=== PATIENT | female | born 1945 | race African-American/Black ===

== ENCOUNTER 2023-12-21 04:55 | Inpatient (IN) | payer OTHER, SELFPAY ==
[2023-12-01 12:17] VITALS: BMI 23.4
[2023-12-01 13:00] LABS: % Basophils 0.9 % (0-2); % Immature Granulocytes 0.3 % (0-0.5); % Lymphocytes 29.3 % (20.5-51.1); % Monocytes 12.5 % (1.7-9.3); Absolute Eosinophils 0.1 10^3/uL (0-0.7); Absolute Monocytes 0.4 10^3/uL (0.1-0.6); Absolute Neutrophils 1.9 10^3/uL (1.4-6.5); Hematocrit 35.7 % (37.0-47.0); Mean Corp Hgb Conc. 33.6 g/dL (33.0-37.0); Mean Corpuscular Hgb 29.9 pg (27.0-31.0); Mean Platelet Volume 9.9 fL (7.4-10.4); Nucleated Red Blood Cells % 0 %; Platelet Count 160 10^3/uL (130-400); Red Blood Cell Count 4.01 10^6/uL (4.20-5.40); Red Cell Dist. Width 14.3 % (11.5-14.5); White Blood Cell Count 3.5 10^3/uL (4.8-10.8)
[2023-12-01 13:05] LABS: Urine Albumin Negative (Neg - Trace); Urine Bilirubin Negative (Negative); Urine Character Clear (Clear); Urine Color Yellow; Urine Glucose Negative (Negative); Urine Ketone Negative (Negative); Urine Leukocyte Negative (Negative); Urine Nitrite Negative (Negative); Urine Occult Blood Trace (Negative); Urine Specific Gravity 1.005 (<1.030); Urine Urobilinogen Negative (Neg - 1+)
[2023-12-01 13:10] LABS: ALT (SGPT) 26 U/L (0-35); AST (SGOT) 37 U/L (14-36); Albumin 4.3 g/dl (3.5-5.0); Alkaline Phosphatase 84 U/L (38-126); Blood Urea Nitrogen 19 mg/dl (7-17); Calcium 9.9 mg/dl (8.4-10.2); Carbon Dioxide 29 mmol/L (22-30); Chloride 101 mmol/L (98-107); Direct Bilirubin 0.3 mg/dl (0.0-0.4); Estimated Creatinine Clearance 63 ml/min; Glucose 88 mg/dl (70-99); Potassium 4.1 mmol/L (3.5-5.1); Sodium 139 mmol/L (135-145); Total Bilirubin 0.9 mg/dl (0.2-1.3); Total Protein 7.4 g/dl (6.3-8.2); eGFR > 60.00
[2023-12-01 13:16] LABS: Urine Squamous Cell 0-2 /LPF (Few); Urine White Cell 0-2 /HPF (0-5)
[2023-12-01 13:18] LABS: PT 14.1 Sec (11.4-14.6)
[2023-12-01 13:19] LABS: APTT 36.6 Sec (23.4-35.0)
--- NOTE | 2023-12-01 13:45 | CM ---
Chart reviewed. Met with the patient in PAT. Patient is independent of ADLS, lives with her adult granddaughter, 1 STH, 0 PRAVEEN, 0 DME. Reviewed preoperative and postoperative instruction and restriction, along with showering guidelines. Gave
patient 2 soaps. Patient is agreeable to a home visit by CT Transitional RN. Plan is for patient to return home with CT Transitional RN.
[2023-12-01 14:15] LABS: Glycohemoglobin (HgbA1c) 6.1 % (4.0-5.6)
--- NOTE | 2023-12-20 22:10 | W.PN.CT ---
Assessment / Plan
-
Assessment:
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
-Mild TR
-LVEF 60%
-Hx sinus bradycardia with 1sth deg AVB
-HTN
-HLD
-Prediabetes (hgb A1C 6.1)
-Severe PAD with claudication s/p RLE stent
-Recent Leukopenia, WBC 3.5 (12/01/23)
-Hx Breast Ca S/p Left mastectomy (Chemo and XRT, 2020)
-S/P hysterectomy
-Acute postop blood loss/anemia (stable without blood transfusion)
-Acute postop atelectasis
-Acute postop hypovolemia with subsequent hypervolemia
Plan:
-No major issues overnight. Hemodynamically and neurologically intact
-Pt successfully extubated in the OR
-Weaned off Levophed gtt overnight, remains on insulin gtt per protocol
-Noted to be bradycardic (sinus) @ 53 bpm overnight. Held Amiodarone last night and placed BB on hold for this AM
-Cont. current meds (ASA, Crestor, Protonix, Iron, Vit C)
-Last CI , U/O since OR 975 mL
-Monitor chest tube output: Med + R pleural
-D/C'd swan and a-line @ 0430
-D/C'd jay @ 0600
-Tele phase once off insulin gtt today
-Maintain cordis
-Maintain temporary pacing wire (will remove likely tomorrow)
-Encourage use of IS
-Wean off of O2 as tolerated
-OOB into chair/Ambulate
-Will repeat echo to reassess mitral valve and LV function before d/c home
Subjective
-
Date of Service: December 20, 2023
Objective Data
-
Lab Results
12/01/23 12:34
12/01/23 12:34
PT 14.1 Sec (11.4-14.6) 12/01/23 12:34
INR 1.10 12/01/23 12:34
APTT 36.6 Sec (23.4-35.0) H 12/01/23 12:34
[2023-12-21] VITALS (9 sets, daily range): BP systolic 97–168; BP diastolic 54–65; BMI 23.2
[2023-12-21] MEDS: LOPRESSOR 25 MG PO (05:12)
[2023-12-21] MEDS: PROTONIX 40 MG PO (05:12)
[2023-12-21] MEDS: MAGNESIUM OXIDE 500 MG PO (05:13)
[2023-12-21] MEDS: BACTROBAN 2% OINTMENT 1 APPLIC NASAL ×2 (05:52→21:13)
--- NOTE | 2023-12-21 06:29 | PTCARENOTE ---
admitted to 2264 for SDA sent labs. clipped prepped and confirmed two showers done. meds given as ordered. son at bedside. consent and h&p in chart.
--- NOTE | 2023-12-21 06:34 | W.CVOR.SURPR ---
CVOR Surgeon Immed Pre Op
-
I have examined this patient prior to performance of the scheduled procedure.
The patient's condition is unchanged from the time of the dictated/written History and
Physical and the patient is able to undergo the scheduled procedure.
Given the extent of her PAD, bilateral iliofemoral arteries not usable for CPB. Reviewed Axillary, however, very tortuous. Will plan for sternotomy and MV repair/replacement.
[2023-12-21 07:00] LABS: ACT+ - POC 107 Seconds (82-134)
[2023-12-21 07:06] LABS: B.E. - POC -0.3 mmol/L; Glucose - POC 103 mg/dl (65-99); HCO3 - POC 25 mmol/L (21-29); Hematocrit - POC 33 % PCV (37-47); Hemodilution- POC Yes; Hemoglobin Calculated - POC 11.2; Ionized Calcium - POC 1.19 mmol/L (1.12-1.27); PCO2 - POC 43 mmHg (35-45); PO2 - POC 412 mmHg (80-100); POC Comment PRE; Potassium - POC 3.3 mmol/L (3.6-5.0); Sodium - POC 143 mmol/L (135-145); pH - POC 7.38 (7.35-7.45)
[2023-12-21 07:21] LABS: Urine Albumin Negative (Neg - Trace); Urine Bilirubin Negative (Negative); Urine Character Clear (Clear); Urine Color Yellow; Urine Glucose Negative (Negative); Urine Ketone Negative (Negative); Urine Leukocyte Negative (Negative); Urine Nitrite Negative (Negative); Urine Occult Blood 1+ (Negative); Urine Specific Gravity 1.005 (<1.030); Urine Urobilinogen Negative (Neg - 1+)
[2023-12-21 07:55] LABS: Urine Amorphous Seen; Urine Squamous Cell 0-2 /LPF (Few)
[2023-12-21 07:56] LABS: Urine White Cell 0-2 /HPF (0-5)
[2023-12-21 08:17] LABS: ACT+ - POC 654 Seconds (82-134)
[2023-12-21 08:40] LABS: B.E. - POC 5.7 mmol/L; Glucose - POC 118 mg/dl (65-99); HCO3 - POC 27 mmol/L (21-29); Hematocrit - POC 23 % PCV (37-47); Hemodilution- POC Yes; Hemoglobin Calculated - POC 7.7; Ionized Calcium - POC 0.99 mmol/L (1.12-1.27); PCO2 - POC 25 mmHg (35-45); PO2 - POC 471 mmHg (80-100); POC Comment CPB; Potassium - POC 4.3 mmol/L (3.6-5.0); Sodium - POC 143 mmol/L (135-145); pH - POC 7.64 (7.35-7.45)
[2023-12-21 08:48] LABS: ACT+ - POC 793 Seconds (82-134)
[2023-12-21 09:04] LABS: B.E. - POC 4.3 mmol/L; Glucose - POC 150 mg/dl (65-99); HCO3 - POC 26 mmol/L (21-29); Hematocrit - POC 23 % PCV (37-47); Hemodilution- POC Yes; Hemoglobin Calculated - POC 7.9; Ionized Calcium - POC 1.01 mmol/L (1.12-1.27); PCO2 - POC 27 mmHg (35-45); PO2 - POC 315 mmHg (80-100); POC Comment CPB; Potassium - POC 3.9 mmol/L (3.6-5.0); Sodium - POC 142 mmol/L (135-145); pH - POC 7.59 (7.35-7.45)
[2023-12-21 09:13] LABS: ACT+ - POC 827 Seconds (82-134)
[2023-12-21 09:33] LABS: B.E. - POC 1.3 mmol/L; Glucose - POC 112 mg/dl (65-99); HCO3 - POC 25 mmol/L (21-29); Hematocrit - POC 25 % PCV (37-47); Hemodilution- POC Yes; Hemoglobin Calculated - POC 8.5; Ionized Calcium - POC 1.04 mmol/L (1.12-1.27); PCO2 - POC 35 mmHg (35-45); PO2 - POC 410 mmHg (80-100); POC Comment WARM; Potassium - POC 3.2 mmol/L (3.6-5.0); Sodium - POC 147 mmol/L (135-145); pH - POC 7.46 (7.35-7.45)
[2023-12-21 09:39] LABS: ACT+ - POC 705 Seconds (82-134)
[2023-12-21] MEDS: ANCEF 10 IV ×2 (09:42)
--- NOTE | 2023-12-21 09:43 | CM ---
pt in OR today, cm to follow.
[2023-12-21 10:00] LABS: ACT+ - POC 123 Seconds (82-134)
[2023-12-21 10:01] LABS: Glucose - POC 75 mg/dl (65-99); HCO3 - POC 23 mmol/L (21-29); Hematocrit - POC 26 % PCV (37-47); Hemodilution- POC Yes; Hemoglobin Calculated - POC 8.9; PCO2 - POC 31 mmHg (35-45); PO2 - POC 572 mmHg (80-100); POC Comment POST; Sodium - POC 147 mmol/L (135-145); pH - POC 7.48 (7.35-7.45)
--- NOTE | 2023-12-21 10:42 | W.PN.CT.SURG ---
CT Surgery Operative Note
-
CARDIAC SURGERY OPERATIVE REPORT
Preoperative Diagnosis: Myxomatous degeneration the mitral valve with severe insufficiency
Postoperative Diagnosis: Same
Procedure(s) Performed:
1. Standard sternotomy with aortic and bicaval cannulation
2. Left atrial appendage exclusion [45 millimeter clip]
3. Radical mitral valve repair [30 mm band annuloplasty, 2 pairs of CV 4 Sult[place]-Brennen cords to the posterior leaflet at P2]
4. Transesophageal echocardiography
5. Placement of temporary atrial and ventricular pacing wires
Date of Surgery: 12/21/2023
Comorbidities:
1. 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
2. History of breast cancer status postmastectomy and radiation to the left chest
3. Hypertension
4. Severe peripheral vascular disease status post endovascular intervention
5. Hyperlipidemia
Attending Surgeon: Fabrizio Mak MD, MS
Assistants: Fabrizio Raza PA-C (present and necessary to first aid nurse, retraction, suction, exposure, suture management, and wound closure under my direction)
Anesthesiology: Cisco Wu MD and Georgia Garg CRNA
Scrub and Circulating RNs: Cassie Burgos RN, John Alonso RN
Staff Nuclear Medicine Technologist: Benita Will CCP
Anesthesia: GETA
EBL: per perfusion records
Products: None
CPB Time: 76 minutes
Aortic Cross Clamp Time: 65 minutes
Indication(s) for Procedures: This is a 78-year-old female with significant mitral valve insufficiency. Pathology was secondary to myxomatous degeneration most of the posterior leaflet resulting in a P2 scallop prolapse. She had a complex jet that
had mostly anterior component but also some central component due to annular dilatation. Given the repair ability of her valve, mildly elevated LV pressures and PA pressures, and overall good functional status she met class IIa indication for
mitral valve intervention. Due to her significant peripheral vascular disease, I ultimately felt it was safest to enter via sternotomy. Her [id number] was greater than 2 and so her left atrial appendage will be managed at time of operation.
Mitral Valve Description: Thickening of both the anterior and posterior leaflets particular at the free margin. She had a very long and tall posterior leaflet with a prolapsed segment of the P2 scallop. There is evidence of annular dilatation
towards the P2 and P3 region. Anterior leaflet was relatively short measuring approximately 24 to 26 mm.
Findings: Left ventricular ejection fraction preoperatively was normal at 60%. Following surgery EF remained the same at 60% with no new regional wall motion abnormalities. Mitral valve was repaired with a 30 mm band annuloplasty secured into
place with 12 nonpledgeted 2 Ethibond sutures using core knots. A set of CV 4 Sultana-Brennen cords were anchored to the anterior lateral papillary muscle head and then 2 pairs from that set replace on either side of the P2 scallop. With dynamic
inflation of the left ventricle, the height of the Sultana-Brennen sutures were adjusted in order to promote a posterior coaptation margin. Test demonstrated acceptable coaptation height and approximately 8 mm with a posterior coaptation margin. Left
atrial appendage was verified to be free of any thrombus or debris preoperatively and found to be flush to the base using a 45 mm clip with no residual flow on color Doppler assessment. She had a slow junctional rhythm underlying did require AV
pacing and was able to AAI pacing. After coming off cardiopulmonary bypass there is no residual mitral valve insufficiency, no systolic anterior motion of the leaflets, and a mean gradient of 1 across the mitral valve. She had mild preoperative
aortic valve insufficiency which remained the same. She had mild to moderate tricuspid valve insufficiency which remained the same. No proximal were given, no inotropes were used.
Specimen(s): None.
Prosthesis:
1. 30mm IBRAHIM PhysioFlex Annuloplasty Band, SN [id number]
2. 2 pairs of CV4 Goretex Neochords
Description of Procedure: The patient was taken to the operating room. Their identity and procedure to be performed were verified and they were positioned supine on the operating table. Induction via general anesthesia with endotracheal intubation
was performed and central venous access and arterial monitoring were inserted. A preoperative transesophageal echocardiogram was performed to assess cardiac function and valvular function. The patient was then prepped and draped from chin to feet in
a sterile fashion. A preoperative time-out was performed with all members of the team present. A midline chest incision was performed along with median sternotomy. The innominate vein was isolated. Full heparinization was given (a total of 37,000
units). We created a pericardial well. The aortic cannulation site was chosen where it was soft, pliable, and free of calcium. Cannulation was performed with an arterial cannula in the ascending aorta, angled metal tip cannular in the superior vena
cava and straight bendable cannula in the inferior vena cava. The arterial cannula line had an appropriate bounce and correlating pressures. Next, a root vent/antegrade cannula was inserted into the ascending aorta. The ACT was confirmed to be over
400 and retrograde autologous priming was performed before commencing cardiopulmonary bypass. The pulmonary artery was away from the aorta to facilitate a clamp site. Sondergaard�s groove was developed after creating the oblique sinus. The
aortic cross-clamp was placed after decreasing the flow on the bypass and mean arterial pressure. A total of 1.2L initial dose of antegrade [place]-Nido cardioplegia solution was given and planned for re-dosing every 75 minutes as necessary. There was
rapid electro-mechanical arrest of the heart at 300 cc of cardioplegia. The left ventricle was observed for distention on echocardiogram and manual palpation. Cold slush was placed into a lap on the RV and we systemically cooled to 34 degrees
centigrade. The heart was medialized and the DANNA was exposed, it was sized to a 45mm clip which was deployed flush to the base.
Carbon dioxide was used to flood the field. The mitral valve was access via the left atrium at the intra-atrial groove followed by valve analysis. The mitral valve was repaired as described above. The left ventricular vent was repositioned across
the mitral valve into the left ventricular and the left atrium was closed with a 3-0 prolene.
De-airing maneuvers were performed and temporary bipolar ventricular pacing wires were placed on the base of the right ventricle along with temporary atrial pacing wires at the SVC right atrial junction. The patient was placed in a Trendelenburg
position and flows on bypass were lowered. The aortic cross clamp was removed and flows were slowly brought back up. The left atrial suture line was hemostatic. Transesophageal echocardiography revealed no evidence of systolic anterior motion and
ventricular function was normal. There is no residual mitral valve insufficiency and a mean gradient of 1mmHg across the valve. Once de-airing was satisfactory the left ventricular and root vents were removed. After verifying acceptable
parameters, we initiated weaning from cardiopulmonary bypass. Once we were off cardiopulmonary bypass, the venous cannulas were clamped and removed sequentially. A test dose of protamine was administered and the patient was monitored for any adverse
reaction before resuming protamine. Once half of the protamine dose was delivered, pump suckers were turned off and the systolic blood pressure was lowered for aortic decannulation. The aortic cannula was removed and purse strings were tied down.
All cannulation sites were oversewn with a 4-0 prolene. The left atrial suture line was inspected and hemostasis was confirmed. Mediastinal hemostasis was obtained. Two #24 Nemesio drains were placed within the pericardium and a single #19 Nemesio into
the right hemithorax. The sternum was approximated with 4 #7 single and 3 #8 double stainless steel wires. Fascia was approximated with #1 vicryl suture. The subcutaneous, dermis and epidermis were closed in layers in a running fashion. The skin
wound was cleansed and dressed.
All instrument, sponge, and needle counts were confirmed to be correct x 2 at the end of the operation. The patient was transferred to the cardiac intensive care unit in critical but stable condition.
I, Dr. Fabrizio Mak, was present, scrubbed for, and performed all critical elements of this procedure.
Fabrizio Mak MD, MS
Cardiothoracic Surgeon
[facility]
This dictation was created using the [employer] dictation system. Please excuse any grammatical, typographical, or 'sound alike' errors
[2023-12-21 10:55] LABS: Glucose - Point of Care 107 mg/dl (70-99)
[2023-12-21 11:01] LABS: B.E. 2.8 mmol/L; HCO3 25.1 mmol/L (21-28); Hematocrit 28.7 % (37.0-47.0); Ionized Calcium 1.26 mMOL/L (1.15-1.33); PCO2 30 mmHg (32-35); PO2 244 mmHg (83-108); Platelet Count 98 10^3/uL (130-400); Potassium 3.3 mMOL/L (3.5-5.1); Sodium 143 mMOL/L (136-145); pH 7.53 (7.35-7.45)
[2023-12-21 11:10] LABS: APTT 36.3 Sec (23.4-35.0); INR 1.56; PT 18.5 Sec (11.4-14.6)
--- NOTE | 2023-12-21 11:16 | W.PN.UPDATE ---
Update Note
Progress Note Update
78 year old female was electively admitted 12/20/24 for mitral repair for severe mitral regurgitation
IV fluids: 1250
U.O.:� 1150
Blood:� none
Wires:� 2 atrial and bipolar V-wires
Inotropes:� none
Pressors:� levophed @ 1
Sedatives:� Precedex
�
NEURO: sedated on Precedex, pupils +2mm B/L
RESP: #8OT @24cm> 500/60%/23/11. Lungs clear B/L. 2 mediastinal (0cc on arrival) and R pleural (0cc on arrival) chest tubes to -20cm suction. Sanguineous drainage
CV: RRR +S1, S2, no S3, no�rub, no murmur. Dermabond to median sternotomy. RIJ w/[place] locked @ 49cm. PA 22/12; CVP 7; C.O XX/CI XX
ABD: round, soft, no BS
EXT: no edema, +2/4 DP pulses B/L, no femoral bruit, left radial A-line intact
: Leal with clear yellow urine
�
A/P: POD #0 s/p Radical mitral valve repair [#30 mm band annuloplasty, 2 pairs of CV 4 [place]-Brennen cords to the posterior leaflet at P2], Left atrial appendage exclusion [#45 millimeter clip]
PARAS: EF�60%, no MR
- wean and extubate
- will need instruction regarding antibiotic prophylaxis for dental and invasive procedures
�
# acute surgical blood loss anemia-expected
- trend CBC
# Hypertension
- resume beta jeanne and losartan as BP tolerates
�
# Hyperglycemia (A1C 6.1)
- insulin infusion x 24h
- cholesterol lowering, diabetic diet
- recheck A1C in 3 months
�
# Hyperlipidemia
- resume�Crestor 20mg daily
# Hx Left breast cancer s/p mastectomy
- stable, no meds
[2023-12-21] MEDS: NSS 500 IV (11:24)
[2023-12-21] MEDS: KCL 50 IV ×2 (11:24→12:41)
[2023-12-21] MEDS: NEURONTIN PO ×2 (11:25→15:43)
[2023-12-21] MEDS: CRESTOR PO (11:25)
[2023-12-21 11:26] LABS: Blood Urea Nitrogen 16 mg/dl (7-17); Estimated Creatinine Clearance 63 ml/min; Glucose 94 mg/dl (70-99); Magnesium 2.3 mg/dl (1.6-2.3)
--- NOTE | 2023-12-21 11:45 | PTCARENOTE ---
Pt arrived from CVOR to CVICU into room 2264 at 1050. Pt intubated and sedated on Precedex gtt. Pt AV paced with temporary epicardial wire set to DDD 80/15/10. BP 102/48 MAP 66. Levo gtt 2mcg/min. PA pressure 25/15, CVP 9, CO 2.45, CI 1.38, SVR
2382. CT DIESEL ENGINE FITTER aware. Core temp 95.4, Steve hugger in place. #[address] at 20cm on right lip. Mouth care completed. Vent setting SIMV, FiO2 60%, TV 500, rate 12, pressure support 5, PEEP 5. Pulse oximetry 100%. Chest tubes x3 (mediastinal x2,
right pleural) in place to -20 suction, no sign of air leak or crepitus, drainage red in color. Bowel sounds hypoactive. Leal catheter in place draining clear yellow urine. Leal care completed. Midsternal incision approximated and YUMI. Right IJ
cordis in place with KVO. Right IJ [place]Bebe catheter in place at 47cm. Right radial A-line intact. Remains on insulin gtt per glycemic protocol. Post-op EKG, X-ray and labs completed.
--- NOTE | 2023-12-21 11:53 | W.PN.CD ---
Addendum entered and electronically signed by Jorge Gabriel MD 12/21/23 18:16:
I saw and examined the patient.
The BEHAVIORAL HEALTH SPECIALIST's note was reviewed and I agree with the note.
Comment: She is doing well immediately postoperatively, she is sedated and intubated. She has a regular rate and rhythm with a normal S2 ventilator breath sounds bilaterally. Extremities are warm well-perfused. However, she is requiring just a
small amount of Levophed still. Otherwise drips are off. Continue typical postop care for day 0. Will follow
Original Note:
Today's Communication / Plan
-
routine post-op care per CT surgery
Impression / Plan
-
Mitral regurgitation - s/p mitral valve repair #30 mm band annuloplasty by Dr. Mak 12/21/23. also left atrial appendage exclusion #45 mm clip.
- hemodynamically stable, intubated/sedated post-op.
- PARAS intra-op 60%.
- insulin, Precedex, levo drips.
Anemia - acute post-op.
- monitor.
HTN - stable post-op.
- Levo drip currently.
- resume outpatient meds when able.
- monitor.
HLD - continue Crestor.
PVD - prior right leg stents.
- ASA, Crestor.
Left breast cancer - s/p mastectomy and chemo/radiation 2020.
Physical Exam
Vital Signs/Labs
Vital Signs
Temp Pulse Resp BP Pulse Ox
95.4 F L 80 12 168/63 100
12/21/23 11:00 12/21/23 11:01 12/21/23 11:00 12/21/23 05:12 12/21/23 11:50
12/20/23 12/21/23 12/22/23
06:59 06:59 06:59
Actual Weight 67 kg
12/21/23 10:50
PT 18.5 Sec (11.4-14.6) H 12/21/23 10:50
INR 1.56 12/21/23 10:50
APTT 36.3 Sec (23.4-35.0) H 12/21/23 10:50
Magnesium 2.3 mg/dl (1.6-2.3) 12/21/23 10:50
Physical Exam
Constitutional: No acute distress
EENT: Anicteric
Cardiovascular: Rhythm & rate is regular
Respiratory: Respiratory effort normal (on vent settings, sedated/intubated)
GI: Soft
Neuro/Psych: Other (sedated/intubated on vent post-op)
Other: Skin (warm, dry)
Data Reviewed
-
Date of Service: December 21, 2023
Medical Decision Making: Reviewed Test Results
EKG: Tracing Personally Visualized and interpreted
Labs: Labs Reviewed by me
Old Records: Reviewed
[2023-12-21] MEDS: LR 250 IV ×3 (12:00→17:20)
[2023-12-21 12:14] LABS: Glucose - Point of Care 139 mg/dl (70-99)
[2023-12-21 12:52] LABS: Glucose - Point of Care 117 mg/dl (70-99)
[2023-12-21] MEDS: TYLENOL PO (13:07)
[2023-12-21 13:09] LABS: B.E. 4.2 mmol/L; HCO3 28.4 mmol/L (21-28); PCO2 40 mmHg (32-35); PO2 181 mmHg (83-108); pH 7.46 (7.35-7.45)
--- NOTE | 2023-12-21 13:23 | PTCARENOTE ---
Labs reviewed. Potassium replaced. Vent settings changes at 1130 from TV 500 to 425, FiO2 40%. ABG repeated, results reviewed with CT SEARCH ENGINE MARKETING STRATEGIST, no further adjustments at this time. 250mL LR Bolus administered at 1200 per order, most recent CO 2.57, CI
1.44, SVR 1929. PA 09/06, CVP 7. Remains on Levo at 2mcg/min.
[2023-12-21 14:04] LABS: Glucose - Point of Care 87 mg/dl (70-99)
--- NOTE | 2023-12-21 14:16 | CON.INTV ---
Consultation
Consultation Request
Date/Time Consultation Requested: 12/21/2023
Date/Time Consultation Performed: 12/21/2023
Requesting Provider: Dr. Mak
Performing Provider: Dr. Georges Natarajan
Reason for Consultation: Status post mitral valve repair-postoperative ICU care
Medical History
-
History of Present Illness:
78-year-old woman who has history of myxomatous degeneration of the mitral valve resulting in severe mitral valve insufficiency. Electively scheduled for mitral valve repair due to symptoms were
Surgery underwent on 12/21/2023 without complication.
Currently on mechanical ventilation, intubated in the critical care unit. Unable to provide history.
Comfortable on mechanical ventilation settings
Chest tube without excessive drainage or air leak.
Past Medical History
Past Medical History: Other (See assessment and plan)
Social History
Tobacco: Non-smoker
Alcohol: None
Drug: None
Personal:
Family History
Family History: Unable to Obtain
Allergies / Home Medications
Allergies
Allergy/AdvReac Type Severity Reaction Status Date / Time
No Known Allergies Allergy Unverified 11/25/23 09:13
Home Medications
�Medication �Instructions �Recorded �Confirmed �Last Taken �Type
[place] Plus Ultra 1 tab PO DAILY Supplement 11/25/23 12/21/23 12/20/23 11:00 History
1 tab
Vitamin D3 1 tab PO DAILY Supplement 11/25/23 12/21/23 12/20/23 11:00 History
1 tab
amlodipine 5 mg tablet 5 mg PO DAILY Blood Pressure 11/25/23 12/21/23 12/20/23 11:00 History
5 mg
aspirin 81 mg chewable tablet 81 mg PO DAILY Blood Clot 11/25/23 12/21/23 12/20/23 11:00 History
Prevention/Tx 81 mg
losartan 100 1 tab PO DAILY Blood Pressure 11/25/23 12/21/23 12/20/23 11:00 History
mg-hydrochlorothiazide 12.5 mg 12.5 mg
tablet
magnesium 200 mg tablet 300 mg PO DAILY Electrolyte 11/25/23 12/21/23 12/20/23 11:00 History
Repletion 200 mg
metoprolol tartrate 25 mg tablet 25 mg PO DAILY Blood Pressure 11/25/23 12/21/23 12/20/23 11:00 History
25 mg
rosuvastatin 20 mg tablet 20 mg PO DAILY High Cholesterol 11/25/23 12/21/23 12/20/23 11:00 History
20 mg
Review of Systems
-
Unable to Obtain full review of systems at this time due to: Patient Intubation
Vitals / Labs / Diagnostic Testing
Vital Signs
Temp Pulse Resp BP Pulse Ox
98.4 F 80 12 168/63 100
12/21/23 14:00 12/21/23 14:00 12/21/23 14:00 12/21/23 05:12 12/21/23 14:00
Lab Data
12/21/23 10:50
Laboratory Results
12/21/23 12/21/23
10:50 12:48
PT 18.5 H
INR 1.56
APTT 36.3 H
pH 7.53 H 7.46 H
pCO2 30 L 40 H
pO2 244 H 181 H
HCO3 25.1 28.4 H
O2 Delivery Level
Diagnostic Testing:
Physical Exam
-
HEENT: Normocephalic and Other (ET tube in place without secretion)
Cardiovascular: S1/S2
Respiratory: Clear and Non-Labored Respirations
GI: Soft and Non Distended
Neurology: Other (Sedated on mechanical ventilation.)
Skin: Warm
General: Respiratory Distress (n) and Comfortable
Assessment
-
78-year-old woman with history of mitral valve regurgitation. Electively admitted for mitral valve repair. Surgery underwent on 12/21/[address] Mak.
Status post radical mitral valve repair 12/21/2023
Postoperative mechanical ventilation
Conditions present prior admission:
Nonrheumatic mitral valve regurgitation
Hypertension
Mitral valve prolapse
Peripheral vascular disease
Hyperlipidemia
Prior history of breast cancer-left mastectomy, chemotherapy and radiation in 2020.
Hysterectomy 1986
History of right leg stents
Assessment and plan:
She is doing well postop-currently on mechanical ventilation and appears comfortable.
ABG reviewed: Adequate ventilation and oxygenation.
Continue SIMV mode with no change
Spontaneous breathing trial per protocol once sedation wears off.
Anemia noted-no evidence of acute bleeding
Follow H&H serially
Hemodynamics -acceptable on low-dose Levophed.
Adequate renal function and urinary output
PA catheter in place, hemodynamics acceptable.
Chest tube with no excessive drainage-no air leak.
Chest x-ray reviewed: With no pneumothorax or fluid collections.
Remain nothing by mouth
Head of the bed elevation
Glycemic control per protocol
DVT prophylaxis when safe from the surgical perspective.
Critical care statement: A total of 32 minutes of critical care time was provided for this patient today. This includes management of unstable vital signs, evaluation of the patient at bedside, reviewing the patient's pertinent medical records
including ventilator settings, arterial blood gases, radiographs, microbiology, laboratory evaluations and discussion with primary team, critical care nursing, and respiratory therapy.
--- NOTE | 2023-12-21 15:10 | PTCARENOTE ---
Second 250 LR bolus administered at 1415. CO 2.52, CI 1.42, SVR 1936, MVO2 61.8, BP 112/56 MAP 75, PA 35/20, CVP 17. Precedex gtt off, pt now waking up. CPAP trial in progress.
[2023-12-21 15:14] LABS: Glucose - Point of Care 139 mg/dl (70-99)
[2023-12-21 15:29] LABS: Hematocrit 30.7 % (37.0-47.0); Hemoglobin 10.6 g/dL (12.0-16.0); Mixed Venous O2 Saturation 61.8 %; Platelet Count 133 10^3/uL (130-400)
[2023-12-21 15:38] LABS: B.E. 0.4 mmol/L; Ionized Calcium 1.24 mMOL/L (1.15-1.33); PCO2 45 mmHg (32-35); PO2 181 mmHg (83-108); pH 7.37 (7.35-7.45)
[2023-12-21] MEDS: PACERONE PO (15:43)
--- NOTE | 2023-12-21 16:15 | PTCARENOTE ---
ABG results reviewed with CT SCARFING MACHINE OPERATOR. Pt extubated at 1600 to 6L nasal cannula. Pulse oximetry 100%. Pt able to state name and . Achieving 750 with IS. Reviewed post-op plan of care with patient. Pt reports minimal pain at this time.
[2023-12-21] MEDS: DILAUDID 0.25 MG IV (17:20)
[2023-12-21] MEDS: ANCEF 5 IV (17:21)
[2023-12-21] MEDS: LOW STRENGTH ASPIRIN 81 MG PO (17:21)
[2023-12-21 17:25] LABS: Glucose - Point of Care 95 mg/dl (70-99)
[2023-12-21 18:52] LABS: Glucose - Point of Care 121 mg/dl (70-99)
--- NOTE | 2023-12-21 19:00 | PTCARENOTE ---
assumed care of patient @ 1900. recieved pt laying in bed, AOX3. Drowsy postop, responds to verbal commands, MATIAS. Mild c/o pain 07/22. 100 % AV paced on monitor, V wire DDD 80,15, 80,10. BPs 120s/ 50s, PAP 20s/10s, CVP ~ 10 . Lungs clear, diminished
on 4L satting 100 %. IS ~ 750. taking shallow breaths. 3 chest tubes R pleural and med x2 to wall suction, no air leak, tidaling or crepitus noted. Belly hpoactive. jay present draining clear yellow urine. sternal aquacel CDI. R IJ cordis with
swan at 47, R radial a-line, R ac PIV all patent. Recieved with insulin per protocol and levo at 2.
[2023-12-21] MEDS: LR 500 IV (20:20)
--- NOTE | 2023-12-21 21:00 | PTCARENOTE ---
C.I 1.46 and UO 10 - 500 LR bolus and calcium ordered
[2023-12-21 21:07] LABS: Glucose - Point of Care 92 mg/dl (70-99)
[2023-12-21] MEDS: SENOKOT-S PO (21:13)
[2023-12-21] MEDS: CALCIUM CHLORIDE 10% SYRINGE 60 MG IV (21:18)
[2023-12-21] MEDS: NEURONTIN 100 MG PO (21:19)
[2023-12-21] MEDS: TYLENOL 1000 MG PO (21:19)
[2023-12-21 23:10] LABS: Glucose - Point of Care 81 mg/dl (70-99)
[2023-12-22] VITALS (23 sets, daily range): BP systolic 111–126; BP diastolic 45–66; PULSE 80; O2SAT 98; BMI 24.3
--- NOTE | 2023-12-22 | PTCARENOTE ---
C.I and UO both improved since LR and calcium. no other change in assessment.
[2023-12-22 01:03] LABS: Glucose - Point of Care 106 mg/dl (70-99)
--- NOTE | 2023-12-22 03:00 | PTCARENOTE ---
labs drawn and sent - pacer paused by ctpa for EKG - NSR/raffy - left off pacer for 5 minutes however raffy and having pauses, placed back on DDD.
[2023-12-22 03:17] LABS: Hematocrit 28.1 % (37.0-47.0); Hemoglobin 9.7 g/dL (12.0-16.0); Mean Corp Hgb Conc. 34.5 g/dL (33.0-37.0); Mean Corpuscular Hgb 30.4 pg (27.0-31.0); Mean Corpuscular Volume 88.1 fL (81.0-99.0); Mean Platelet Volume 9.6 fL (7.4-10.4); Platelet Count 111 10^3/uL (130-400); Red Blood Cell Count 3.19 10^6/uL (4.20-5.40); White Blood Cell Count 7.8 10^3/uL (4.8-10.8)
[2023-12-22] MEDS: ANCEF 5 IV ×2 (03:24→09:53)
[2023-12-22 03:29] LABS: INR 1.32; PT 16.2 Sec (11.4-14.6)
[2023-12-22 03:42] LABS: Blood Urea Nitrogen 21 mg/dl (7-17); Calcium 9.7 mg/dl (8.4-10.2); Carbon Dioxide 24 mmol/L (22-30); Chloride 110 mmol/L (98-107); Estimated Creatinine Clearance 55 ml/min; Glucose 90 mg/dl (70-99); Magnesium 1.8 mg/dl (1.6-2.3); Potassium 3.7 mmol/L (3.5-5.1); Sodium 143 mmol/L (135-145); eGFR > 60.00
--- NOTE | 2023-12-22 03:57 | W.PN.CT ---
Today's Communication / Plan
-
Plan:
-No major issues overnight. Hemodynamically and neurologically intact
-Pt successfully extubated @ 1600
-Weaned off Levophed gtt overnight, remains on insulin gtt per protocol. Started on Dobutamine @ 2 mcg/kg/min @ 0500 given CI 1.68 and mixed venous of 45.5%
-CI postop dobutamine is 2.4, U/O since OR 2825 mL
-Noted to be in CHB postop, appeared to be in NSR @ 64 bpm this AM with pacer off, but subsequently became bradycardic with pauses
-Currently AV paced @ 80 bpm. BB and Amiodarone is on hold
-Cont. current meds (ASA, Crestor, Protonix, Iron, Vit C)
-Monitor chest tube output: 2Med 110/230, R pleural 85/130
-A-line non-functional and d/c'd this AM @ 0500
-Kept swan and jay catheter while on dobutamine
-Tele phase once off insulin gtt
-Maintain cordis
-Maintain temporary pacing wire
-Encourage use of IS
-Wean off of O2 as tolerated
-OOB into chair/Ambulate
-Will repeat echo to reassess mitral valve and LV function before d/c home
Assessment / Plan
-
Assessment:
-S/P Standard sternotomy with aortic and bicaval cannulation/ Radical mitral valve repair [30 mm band annuloplasty, 2 pairs of CV 4 [place]-Brennen cords to the posterior leaflet at P2]/Left atrial appendage exclusion [45 millimeter clip], by Dr. Mak,
12/21/23, pod#1
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
-Mild TR
-LVEF 60%
-Hx sinus bradycardia with 1sth deg AVB
-HTN
-HLD
-Prediabetes (hgb A1C 6.1)
-Severe PAD with claudication s/p RLE stent
-Recent Leukopenia, WBC 3.5 (12/01/23)
-Hx Breast Ca S/p Left mastectomy (Chemo and XRT, 2020)
-S/P hysterectomy
-Acute postop blood loss/anemia (stable without blood transfusion)
-Acute postop atelectasis
-Acute postop hypovolemia with subsequent hypervolemia
-Acute postop CHB S/P AV paced @ 80 bpm
Discussed patient care with: Cardiology, Nursing, Respiratory Therapy, Pharmacy and Care Team
Subjective
Procedure
Standard sternotomy with aortic and bicaval cannulation/ Radical mitral valve repair [30 mm band annuloplasty, 2 pairs of CV 4 [place]-Brennen cords to the posterior leaflet at P2]/Left atrial appendage exclusion [45 millimeter clip], by Dr. Mak, 12/21/23
-
Date of Service: December 22, 2023
Pt c/o incisional pain, otherwise feels well
Objective Data
-
Lab Results
12/22/23 03:00
12/22/23 03:00
PT 16.2 Sec (11.4-14.6) H 12/22/23 03:00
INR 1.32 12/22/23 03:00
APTT 36.3 Sec (23.4-35.0) H 12/21/23 10:50
Vital Signs
Vital Signs
Temp Pulse Resp BP Pulse Ox
99.1 F 51 21 126/63 100
12/22/23 03:00 12/22/23 03:23 12/22/23 03:23 12/22/23 03:00 12/22/23 03:23
CT Intake/Output/Weight
12/21/23 12/21/23 12/22/23
06:59 18:59 06:59
Intake Total 1335.8 / 2107.0 771.2 / 2107.0
Output Total 2665 / 3035 370 / 3035
Balance -1329.2 / -928.0 401.2 / -928.0
SaO2: 100 (2L)
Physical Exam
-
General: Awake, Oriented and AOx3
Cardiovascular: Regular rate & rhythm, No Murmurs, No Rub and No Gallop
Respiratory: Decreased Breath Sounds
Sternum: Stable
Incision: Clean, Dry, Intact and Dressing Intact
Extremities: No Edema
Data Reviewed
-
Lab Results: Results Reviewed
Medications: Active Meds Reviewed
Chest X-Ray: Report Reviewed and Image Reviewed
ECG: Report Reviewed and Image Reviewed
[2023-12-22 04:08] LABS: Glucose - Point of Care 94 mg/dl (70-99)
[2023-12-22] MEDS: KCL 40 MEQ PO (04:28)
[2023-12-22] MEDS: MAGNESIUM OXIDE 500 MG PO ×3 (04:29→19:59)
[2023-12-22 04:54] LABS: Mixed Venous O2 Saturation 45.5 %
--- NOTE | 2023-12-22 05:00 | PTCARENOTE ---
MV 45 - dobut started at 2 mcs
--- NOTE | 2023-12-22 05:16 | PTCARENOTE ---
A line d/cd per order. plan to keep swan and keep patient in bed per ctpa .
[2023-12-22] MEDS: TYLENOL 1000 MG PO ×3 (06:13→22:26)
[2023-12-22 06:14] LABS: Glucose - Point of Care 88 mg/dl (70-99)
[2023-12-22] MEDS: ROXICODONE 5 MG PO (06:14)
[2023-12-22 07:09] LABS: Glucose - Point of Care 124 mg/dl (70-99)
[2023-12-22 07:34] LABS: Glucose - Point of Care 96 mg/dl (70-99)
--- NOTE | 2023-12-22 08:00 | PTCARENOTE ---
Patient received from night warehouse selector resting in bed, sleepy but arousable and appropriate. VSS - NSR/AV paced via cm, SaO2 100% on 1lnc. RIJ Cordis/[place] catheter - leveled, flushed, and calibrated w/good waveform returned. Epicardial A+V wires to
pulse generator. Leal catheter to gravity. Mediastinal chest tubes x 2 (Y-connected to one pleurevac), R pleural chest tube to separate chamber, no air leaks noted on -20cm suction. All procedural sites stable. See work list interventions for
intravenous infusions and titrations. Patient updated to plan of care for the day, in agreement. See work list for full assessment and interventions performed.
--- NOTE | 2023-12-22 08:33 | W.PN.ANS.POP ---
Anesthesia Post Operative
- Anesthesia Post Op Note
Vital Signs Stable-See Nursing Note: Yes
Airway Patent: Yes
Adequate Pain Control: Yes
Change in Mental Status: No
Current Postoperative Nausea & Vomiting: No
Anesthesia Complications: No
General Anesthetic Recall: No
Unplanned Admission: No
Post Op Hydration Adequate: Yes
[2023-12-22] MEDS: NEURONTIN 100 MG PO ×3 (08:56→22:26)
[2023-12-22] MEDS: CRESTOR 20 MG PO (08:56)
[2023-12-22] MEDS: FLEXERIL 5 MG PO (08:56)
[2023-12-22] MEDS: VITAMIN C 500 MG PO (08:56)
[2023-12-22] MEDS: LOW STRENGTH ASPIRIN 81 MG PO (08:56)
[2023-12-22] MEDS: PROTONIX 40 MG PO (08:57)
[2023-12-22] MEDS: LIDOCAINE 4% PATCH 1 PATCH TOPICAL (08:57)
[2023-12-22] MEDS: SENOKOT-S 1 TABLET PO ×2 (08:57→19:59)
[2023-12-22 09:08] LABS: Glucose - Point of Care 103 mg/dl (70-99)
[2023-12-22 09:22] LABS: Mixed Venous O2 Saturation 62.9 %
[2023-12-22] MEDS: BACTROBAN 2% OINTMENT 1 APPLIC NASAL ×2 (09:52→19:59)
[2023-12-22] MEDS: NSS 500 IV (09:53)
--- NOTE | 2023-12-22 10:29 | W.PN.CD ---
Today's Communication / Plan
-
wean Db adn pacing as able
continue ICS
Impression / Plan
-
Mitral regurgitation - s/p mitral valve repair #30 mm band annuloplasty by Dr. Mak 12/21/23. also left atrial appendage exclusion #45 mm clip.
- hemodynamically stable, intubated/sedated post-op.
-weaned off levophed, now on a small dose of Db for low SVO2.
-pacing with temp wires
- PARAS intra-op 60%. plan for predischarge echo
- insulin, Precedex, levo drips.
Anemia - acute post-op.
- monitor.
HTN -
- resume outpatient meds when able.
- monitor.
HLD - continue Crestor.
PVD - prior right leg stents.
- ASA, Crestor.
Left breast cancer - s/p mastectomy and chemo/radiation 2020.
Subjective:
She is feeling well, pain is controlled, working with ICS
Physical Exam
Vital Signs/Labs
Vital Signs
Temp Pulse Resp BP Pulse Ox
98.9 F 85 21 115/58 100
12/22/23 09:00 12/22/23 09:15 12/22/23 09:15 12/22/23 09:00 12/22/23 09:37
12/21/23 12/22/23 12/23/23
06:59 06:59 06:59
Actual Weight 67 kg 70.3 kg
12/22/23 03:00
12/22/23 03:00
PT 16.2 Sec (11.4-14.6) H 12/22/23 03:00
INR 1.32 12/22/23 03:00
APTT 36.3 Sec (23.4-35.0) H 12/21/23 10:50
Magnesium 1.8 mg/dl (1.6-2.3) 12/22/23 03:00
Physical Exam
Constitutional: No acute distress
Cardiovascular: Rhythm & rate is regular, Pedal edema is absent, JVD pressure is normal and Systolic murmur absent
Respiratory: Respiratory effort normal, Lungs clear to auscul., Wheeze Absent, Crackles Absent and Rhonchi Absent
Data Reviewed
-
Date of Service: December 22, 2023
Medical Decision Making: Review of Case with other Provider (EDEL Silvana at the bedside, she is doing well progressing nicely)
[2023-12-22 10:42] LABS: Glucose - Point of Care 125 mg/dl (70-99)
--- NOTE | 2023-12-22 11:40 | PTCARENOTE ---
Assisted oob to chair w/out issue. Worked w/CR. VS obtained, stable. Perusing menu for lunch order.
[2023-12-22 12:02] LABS: Glucose - Point of Care 121 mg/dl (70-99)
--- NOTE | 2023-12-22 13:09 | W.PN.INTV ---
Today's Communication / Plan
Recommendations
Continue postoperative care
Follow chest tube output
Follow H&H
Analgesia
Increase activity as able
Daily chest x-ray
Critical care team will sign off
Assessment
-
78-year-old woman with history of mitral valve regurgitation. Electively admitted for mitral valve repair. Surgery underwent on 12/21/[address] Mak.
Status post radical mitral valve repair 12/21/2023
Postoperative mechanical ventilation
Conditions present prior admission:
Nonrheumatic mitral valve regurgitation
Hypertension
Mitral valve prolapse
Peripheral vascular disease
Hyperlipidemia
Prior history of breast cancer-left mastectomy, chemotherapy and radiation in 2020.
Hysterectomy 1986
History of right leg stents
Assessment and plan:
Extubated 12/21/2023
Moderate supplemental oxygen
Continue analgesia-pain is controlled.
Monitor respiratory status closely.
Incentive spirometry encouraged
Increase activity per protocol.
Anemia noted-no evidence of acute bleeding
Follow H&H serially
Hemodynamics -Levophed has been weaned off.
Overnight on low-dose dobutamine.
Continue to follow cardiac output.
Renal function is normal
Urinary output is adequate.
Chest tube with no excessive drainage-no air leak.
Chest x-ray reviewed: With no pneumothorax or fluid collections.
Advance diet as tolerated
Head of the bed elevation
Glycemic control per protocol
DVT prophylaxis when safe from the surgical perspective.
No additional recommendation from the critical care perspective.
Patient has been transferred to telemetry
Sign of
Subjective Dataa
Subjective Data
Date of Service:
Date of Service: December 22, 2023
Chief Complaint: Global Manager Follow Up
Subjective:
Overnight, no major issues.
Patient denies any particular complaints
Reports that the pain is controlled.
Review of Systems
General: Fever (n)
Cardiopulmonary: Dyspnea (none at rest), Cough (n) and Sputum Production (n)
GI: Abdominal Pain (n) and Nausea (n)
Neuro: Headache (n)
Objective Data
Data Reviewed
Vital Signs / I&O / Oxygen:
Vital Signs
Temp Pulse Resp BP Pulse Ox
98.4 F 80 16 121/53 99
12/22/23 11:30 12/22/23 12:00 12/22/23 11:30 12/22/23 11:14 12/22/23 11:30
Intake and Output
12/21/23 12/22/23 12/23/23
06:59 06:59 06:59
Intake Total 2382.5 / 2407.8 369.5 / 369.5
Output Total 3175 / 3185 210 / 210
Balance -792.5 / -777.2 159.5 / 159.5
SaO2 [SIMV] 100
SaO2 99
Nasal Cannula flow liters per 1
minute
Physical Exam
General: Respiratory Distress (n) and Comfortable
HEENT: Normocephalic
Cardiovascular: S1-S2
Respiratory: Clear, Non-Labored Respirations and Chest Tube (No air leak or excessive drainage)
GI: Soft and Non Distended
Neurology: Awake and Oriented
Labs/Micro/Reports
Lab Data
12/22/23 03:00
12/22/23 03:00
Laboratory Results
12/21/23 12/21/23 12/22/23
12:48 15:27 03:00
PT 16.2 H
INR 1.32
pH 7.46 H 7.37
pCO2 40 H 45 H
pO2 181 H 181 H
HCO3 28.4 H 26.0
O2 Delivery Level
[2023-12-22] MEDS: FERRLECIT 110 MG IV (13:46)
[2023-12-22] MEDS: ZOFRAN 4 MG IV (16:25)
[2023-12-22 17:54] LABS: Glucose - Point of Care 212 mg/dl (70-99)
[2023-12-22] MEDS: NOVOLOG FLEXPEN-MODERATE RESISTANCE 3 UNITS SC (18:23)
--- NOTE | 2023-12-22 20:45 | PTCARENOTE ---
Assumed care of pt from osei RN. Pt AAOx3. Following commands appropriately. 100% v-paced on the monitor. HR 80. Temporary epicardial v-wire set to VVI 80/5. BP 124/54. No edema. Bilateral radial pulses palpable. Bilateral DP pulses weak on
palpation. Pt on RA. POX 98%. Occasional cough. Lung sounds diminished. Deep breathing and IS encouraged. Mediastinal CTx2 to -20 suction, no airleak noted, and output WNL. Abdomen soft/nontender. Pt assisted out of the chair and encouraged to void.
Pt sat on the toilet for several minutes and was unable to void. Bladder scan showed 169 mL. Pt c/o nausea while walking from the bathroom to the bed that resolved quickly. All surgical sites stable. Right IJ cordis CDI. PIVx1 CDI. Dobutamine
infusing as ordered. Pt states pain is controlled at this time. Pt repositioned into bed. Call warren within reach. See worklist for full nursing assessment, interventions, and VS.
[2023-12-23] VITALS (17 sets, daily range): BP systolic 80–129; BP diastolic 43–65; PULSE 78–109; O2SAT 95–98; BMI 23.9
--- NOTE | 2023-12-23 01:09 | PTCARENOTE ---
Pt easily awoken oriented,denies need for pain med,at present.Physical assessment preformed,pt turns supporting sternal incision,Chest tube x2 intact suction maintained,minimal drainage.Pts VS stable,on room air O2 sat 96%,External pacer
maintained,rate at 80,MA set at 5,pt 100% V-paced.Pt bladder scanned for 268 mls,pt denies need to void stated she is not uncomfortable,close observation ongoing throughout the night.
--- NOTE | 2023-12-23 04:50 | W.PN.CT ---
Today's Communication / Plan
-
Plan:
-No major issues overnight. Hemodynamically and neurologically intact
-On dobutamine gtt @ 2 until 5AM (noted to be in sinus tachycardia @ 105 bpm). Dobutamine weaned to 1, currently in sinus with 1st deg HB @ 73 bpm
-Noted to be in CHB postop, appeared to be in NSR @ 64 bpm this AM with pacer off, but subsequently became bradycardic with pauses
-BB and Amiodarone are on hold
-Acute postop urinary retention, straight cathed x 1 (425 mL)
-Cont. current meds (ASA, Crestor, Protonix, Iron, Vit C)
-Monitor chest tube output: 2Med 110/260
-Maintain cordis another day
-Maintain temporary pacing wire, currently @ VVI of 40 bpm backup
-Encourage use of IS
-Wean off of O2 as tolerated
-OOB into chair/Ambulate
-Will repeat echo to reassess mitral valve and LV function before d/c home
Assessment / Plan
-
Assessment:
-S/P Standard sternotomy with aortic and bicaval cannulation/ Radical mitral valve repair [30 mm band annuloplasty, 2 pairs of CV 4 [place]-Brennen cords to the posterior leaflet at P2]/Left atrial appendage exclusion [45 millimeter clip], by Dr. Mak,
12/21/23, pod#2
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
-Mild TR
-LVEF 60%
-Hx sinus bradycardia with 1sth deg AVB
-HTN
-HLD
-Prediabetes (hgb A1C 6.1)
-Severe PAD with claudication s/p RLE stent
-Recent Leukopenia, WBC 3.5 (12/01/23)
-Hx Breast Ca S/p Left mastectomy (Chemo and XRT, 2020)
-S/P hysterectomy
-Acute postop blood loss/anemia (stable without blood transfusion)
-Acute postop atelectasis
-Acute postop hypovolemia with subsequent hypervolemia
-Acute postop CHB S/P AV paced @ 80 bpm
-Acute postop urinary retention, S/p straight cath x 1
Discussed patient care with: Cardiology, Nursing, Respiratory Therapy, Pharmacy and Care Team
Subjective
Procedure
Standard sternotomy with aortic and bicaval cannulation/ Radical mitral valve repair [30 mm band annuloplasty, 2 pairs of CV 4 [place]-Brennen cords to the posterior leaflet at P2]/Left atrial appendage exclusion [45 millimeter clip], by Dr. Mak, 12/21/23
-
Date of Service: December 23, 2023
Pt c/o mild incisional pain, otherwise feels well
Objective Data
-
PT 16.2 Sec (11.4-14.6) H 12/22/23 03:00
INR 1.32 12/22/23 03:00
APTT 36.3 Sec (23.4-35.0) H 12/21/23 10:50
Vital Signs
Vital Signs
Temp Pulse Resp BP Pulse Ox
98.4 F 78 16 125/60 95
12/23/23 04:23 12/23/23 04:15 12/22/23 19:58 12/23/23 03:01 12/22/23 23:55
CT Intake/Output/Weight
12/22/23 12/22/23 12/23/23
06:59 18:59 06:59
Intake Total 1046.7 / 2407.8 453.5 / 467.5 14 / 467.5
Output Total 510 / 3185 320 / 765 445 / 765
Balance 536.7 / -777.2 133.5 / -297.5 -431 / -297.5
SaO2: 95 (RA)
Physical Exam
-
General: Awake, Oriented and AOx3
Cardiovascular: Regular rate & rhythm, No Murmurs, No Rub and No Gallop
Respiratory: Decreased Breath Sounds
Sternum: Stable
Incision: Clean, Dry, Intact and Dressing Intact
Extremities: No Edema
Data Reviewed
-
Lab Results: Results Reviewed
Medications: Active Meds Reviewed
Chest X-Ray: Report Reviewed and Image Reviewed
ECG: Report Reviewed and Image Reviewed
[2023-12-23 05:11] LABS: Hematocrit 27.5 % (37.0-47.0); Hemoglobin 9.5 g/dL (12.0-16.0); Mean Corp Hgb Conc. 34.5 g/dL (33.0-37.0); Mean Corpuscular Hgb 30.5 pg (27.0-31.0); Mean Corpuscular Volume 88.4 fL (81.0-99.0); Mean Platelet Volume 10.3 fL (7.4-10.4); Platelet Count 102 10^3/uL (130-400); Red Blood Cell Count 3.11 10^6/uL (4.20-5.40); Red Cell Dist. Width 15.8 % (11.5-14.5); White Blood Cell Count 7.6 10^3/uL (4.8-10.8)
[2023-12-23 05:35] LABS: Blood Urea Nitrogen 34 mg/dl (7-17); Calcium 8.8 mg/dl (8.4-10.2); Carbon Dioxide 27 mmol/L (22-30); Chloride 104 mmol/L (98-107); Estimated Creatinine Clearance 55 ml/min; Glucose 154 mg/dl (70-99); Magnesium 2.2 mg/dl (1.6-2.3); Potassium 4.6 mmol/L (3.5-5.1); Sodium 135 mmol/L (135-145); eGFR > 60.00
[2023-12-23] MEDS: TYLENOL 1000 MG PO (06:19)
--- NOTE | 2023-12-23 07:30 | PTCARENOTE ---
Assumed care of patient from car shifter RN. AAO x 3 resting in bed. SR w/ 1 degree AV block on monitor. Epicardial wire to back up of VVI 40. Occasional pacing noted. Rt IJ cordis with dobutamine infusing. Chest tubes x 2 to - 20 cm suction.
No air leak or crepitus noted. Abdomen soft and non tender, passing flatus. Denies urge to void at present. Will bladder scan as needed. Surgical sites c,d,i. DP pulses palpable. Plan for day discussed.
[2023-12-23] MEDS: SENOKOT-S 1 TABLET PO ×2 (08:30→21:16)
[2023-12-23] MEDS: PROTONIX 40 MG PO (08:30)
[2023-12-23] MEDS: CRESTOR 20 MG PO (08:30)
[2023-12-23] MEDS: BACTROBAN 2% OINTMENT 1 APPLIC NASAL ×2 (08:30→21:16)
[2023-12-23] MEDS: LOW STRENGTH ASPIRIN 81 MG PO (08:30)
[2023-12-23] MEDS: LIDOCAINE 4% PATCH TOPICAL (08:30)
[2023-12-23] MEDS: NEURONTIN 100 MG PO ×3 (08:30→21:16)
[2023-12-23] MEDS: VITAMIN C 500 MG PO (08:30)
[2023-12-23] MEDS: MAGNESIUM OXIDE 500 MG PO ×2 (08:30→21:16)
[2023-12-23 09:27] LABS: Mixed Venous O2 Saturation 55.9 %
[2023-12-23] MEDS: NOVOLOG FLEXPEN-MODERATE RESISTANCE SC ×3 (09:56→16:21)
--- NOTE | 2023-12-23 10:58 | PTCARENOTE ---
While ambulating with Cardiac rehab, patient became dizzy and proceeded to pass out. Pt safely lowered to floor by 3 RNS, No monitor events observed, Quickly responding to voice once seated. Pt then lifted to chair and wheeled to room. VSS.
Mak notified. Dobutamine restarted as per MD order.
--- NOTE | 2023-12-23 11:07 | W.PN.CD ---
Today's Communication / Plan
-
monitor rhythm
Impression / Plan
-
Mitral regurgitation - s/p mitral valve repair #30 mm band annuloplasty by Dr. Mak 12/21/23. also left atrial appendage exclusion #45 mm clip.
- hemodynamically stable
-weaned off Db, still pacing at times, will monitor rhythm, bb still on appropriate hold
- PARAS intra-op 60%. plan for predischarge echo
Anemia - acute post-op.
- monitor.
HTN -
- resume outpatient meds when able.
- monitor.
HLD - continue Crestor.
PVD - prior right leg stents.
- ASA, Crestor.
Left breast cancer - s/p mastectomy and chemo/radiation 2020.
Subjective:
She is feeling well, pain is controlled with just tylenol
Physical Exam
Vital Signs/Labs
Vital Signs
Temp Pulse Resp BP Pulse Ox
99.1 F 71 16 113/52 100
12/23/23 08:00 12/23/23 10:30 12/23/23 08:00 12/23/23 07:47 12/23/23 08:00
12/22/23 12/23/23 12/24/23
06:59 06:59 06:59
Actual Weight 70.3 kg 69.1 kg
12/23/23 05:02
12/23/23 05:02
PT 16.2 Sec (11.4-14.6) H 12/22/23 03:00
INR 1.32 12/22/23 03:00
APTT 36.3 Sec (23.4-35.0) H 12/21/23 10:50
Magnesium 2.2 mg/dl (1.6-2.3) 12/23/23 05:02
Physical Exam
Constitutional: No acute distress
Cardiovascular: Rhythm & rate is regular, Pedal edema is absent, JVD pressure is normal and Systolic murmur absent
Respiratory: Respiratory effort normal, Lungs clear to auscul., Wheeze Absent, Crackles Absent and Rhonchi Absent
Neuro/Psych: AO x 3
Data Reviewed
-
Date of Service: December 23, 2023
--- NOTE | 2023-12-23 11:15 | PTCARENOTE ---
Pt without urge to void. Bladder scanned for [address] SENIOR CASE MANAGER notified. Will continue to monitor.
[2023-12-23] MEDS: NSS 500 IV (12:29)
[2023-12-23] MEDS: DOBUTREX 500 MG 250 IV (12:35)
[2023-12-23] MEDS: FERRLECIT 110 MG IV (14:32)
[2023-12-23] MEDS: TYLENOL PO ×2 (14:33→22:53)
--- NOTE | 2023-12-23 16:43 | PTCARENOTE ---
Ambulated in room with RN, denies dizziness. Voided 400 ml Dark concentrated jay urine. Dobutamine maintained. VSS Will continue to monitor.
[2023-12-23] MEDS: LOPRESSOR 2.5 MG IV (17:14)
--- NOTE | 2023-12-23 17:42 | PTCARENOTE ---
Monitor alarming for afib in 80's-110. Pt denies feeling heart race or any other s/s. CT WET PROCESS MILLER ordered 2.5 mg IV lopressor x 1. Prior to administering pt converted to SR on own w/o intervention. PT then c/o feeling 'woozy' HR 40-50 with
intermittent pacing at times. BP 80's systolic. Feet elevated while sitting in the chair. Pacemaker setting increased to 60. Pt quickly regained own rhythm in 70-80's, BP increased to 98/53. Assisted to bed at this time by [address] WET PROCESS MILLER
updated.
[2023-12-23] MEDS: ZOFRAN 4 MG IV (19:14)
[2023-12-23] MEDS: TYLENOL 650 MG PO (19:15)
--- NOTE | 2023-12-23 20:20 | PTCARENOTE ---
Assumed care of patient at 1900. Patient found in bed at time of assessment. Patient is AOx4, follows commands appropriately, moves all extremities. Patient reports generalized weakness. Lung sounds are diminished throughout patient is on RA saO2 at
95%. Heart sounds have a regular rate and rhythm, patient is SR with first degree AV block on the monitor. Patient has normal palpable pulses and no edema is noted. Patient has A+V wires and has temporary pacemaker with VVI settings 60/5. Patient
has active BS reports no post op BM at this time. Patient has had some difficulty urinating will continue to monitor. Patient has sternal incision approx with surg adhesive YUMI. There is a R IJ cordis receiving KVO and dobut@1. There is a R AC 20G
and L hand 20 G available for intermittent infusion. Patient reporting some nausea at this time zofran administered. Patient reporting mild pain tylenol administered. VSS.
[2023-12-24] VITALS (17 sets, daily range): BP systolic 97–121; BP diastolic 51–63; PULSE 83; O2SAT 98; BMI 23.6
--- NOTE | 2023-12-24 03:41 | PTCARENOTE ---
Patient reassessed. VSS. No c/o pain or nausea at this time. Remains SR with first deg AV block. Patient is stable.
--- NOTE | 2023-12-24 04:03 | W.PN.CT ---
Today's Communication / Plan
-
-pod #3
-felt dizzy, near-syncopal while walking on 12/22. No significant issues overnight.
-drips: Dobut 1. mVO2 66.5 today
-in nsr with hr 70s-80s and occasional V-pacing (VVI @ 60). Holding BB and Amio. Consider turning off pacer; keep pw
-bladder scan this am 405 cc- waiting to void. Will consider Flomax if unable to void
-labs pending
-encourage IS, OOB
Assessment / Plan
-
Assessment:
-S/P Standard sternotomy with aortic and bicaval cannulation/ Radical mitral valve repair [30 mm band annuloplasty, 2 pairs of CV 4 [place]ren[place] cords to the posterior leaflet at P2]/Left atrial appendage exclusion [45 millimeter clip], by Dr. Mak,
12/21/23, pod#3
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
-Mild TR
-LVEF 60%
-Hx sinus bradycardia with 1sth deg AVB
-HTN
-HLD
-Prediabetes (hgb A1C 6.1)
-Severe PAD with claudication s/p RLE stent
-Recent Leukopenia, WBC 3.5 (12/01/23)
-Hx Breast Ca S/p Left mastectomy (Chemo and XRT, 2020)
-S/P hysterectomy
-Acute postop blood loss/anemia (stable without blood transfusion)
-Acute postop atelectasis
-Acute postop hypovolemia with subsequent hypervolemia
-Acute postop CHB S/P AV paced @ 80 bpm- currently, in nsr 80s with 1st degree AVB
-Acute postop urinary retention, S/p straight cath x 1
Discussed patient care with: Nursing and Care Team
Subjective
Procedure
Standard sternotomy with aortic and bicaval cannulation/ Radical mitral valve repair [30 mm band annuloplasty, 2 pairs of CV 4 [place] cords to the posterior leaflet at P2]/Left atrial appendage exclusion [45 millimeter clip], by Dr. Mak, 12/21/23
-
Date of Service: December 24, 2023
Objective Data
-
PT 16.2 Sec (11.4-14.6) H 12/22/23 03:00
INR 1.32 12/22/23 03:00
APTT 36.3 Sec (23.4-35.0) H 12/21/23 10:50
Vital Signs
Vital Signs
Temp Pulse Resp BP Pulse Ox
98.7 F 78 20 118/54 95
12/23/23 23:00 12/24/23 00:15 12/23/23 23:00 12/24/23 00:00 12/23/23 23:00
CT Intake/Output/Weight
12/23/23 12/23/23 12/24/23
06:59 18:59 06:59
Intake Total 42 / 495.5 788 / 1124 336 / 1124
Output Total 535 / 855 400 / 400
Balance -493 / -359.5 388 / 724 336 / 724
SaO2: 95
Physical Exam
-
General: Awake and AOx3
Cardiovascular: Regular rate & rhythm, No Murmurs and Rub
Respiratory: Decreased Breath Sounds
Sternum: Stable
Incision: Clean, Dry and Intact
Extremities: No Edema (1+DPs b/l)
Abdomen: soft, nontender, nondistended, + bowel sounds
Data Reviewed
-
Lab Results: Results Reviewed
Medications: Active Meds Reviewed
Chest X-Ray: Report Reviewed and Image Reviewed
ECG: Report Reviewed and Image Reviewed
[2023-12-24 04:53] LABS: Mixed Venous O2 Saturation 66.5 %
[2023-12-24 05:02] LABS: Hematocrit 27.9 % (37.0-47.0); Hemoglobin 9.3 g/dL (12.0-16.0); Mean Corp Hgb Conc. 33.3 g/dL (33.0-37.0); Mean Corpuscular Hgb 30.2 pg (27.0-31.0); Mean Corpuscular Volume 90.6 fL (81.0-99.0); Mean Platelet Volume 9.9 fL (7.4-10.4); Platelet Count 102 10^3/uL (130-400); Red Blood Cell Count 3.08 10^6/uL (4.20-5.40); Red Cell Dist. Width 15.8 % (11.5-14.5); White Blood Cell Count 7.7 10^3/uL (4.8-10.8)
[2023-12-24 05:21] LABS: Blood Urea Nitrogen 21 mg/dl (7-17); Calcium 8.4 mg/dl (8.4-10.2); Carbon Dioxide 30 mmol/L (22-30); Chloride 102 mmol/L (98-107); Estimated Creatinine Clearance 74 ml/min; Glucose 104 mg/dl (70-99); Magnesium 2.1 mg/dl (1.6-2.3); Potassium 4.2 mmol/L (3.5-5.1); Sodium 134 mmol/L (135-145); eGFR > 60.00
--- NOTE | 2023-12-24 05:55 | PTCARENOTE ---
Patient reasssessed. VSS. AM labs obtained. AM EKG obtained. AM hygiene care provided. Patient with no UOP overnight bladder scan for 405mL. Encouraged patient to attempt void. Ambulated patient to bathroom with nurse assistx2. Patient able to
successfully void for 300mL. Remains SR with first degree on the monitor. Patient is stable.
[2023-12-24] MEDS: TYLENOL 1000 MG PO ×3 (07:08→20:26)
--- NOTE | 2023-12-24 08:00 | PTCARENOTE ---
Patient received from photographic editor resting oob in chair, AAO X 3, states pain controlled at this time. NSR via cm, SaO2 @ 99% on RA. RIJ Cordis w/kvo infusing. Dobutamine infusion titrated off per Dr. Mak at bedside w/team. A+V pacing wires to pulse
generator, no spikes noted. All procedural sites stable. Patient updated to plan of care for the day, in agreement. See work list for full assessment and interventions performed.
[2023-12-24] MEDS: LIDOCAINE 4% PATCH TOPICAL (08:14)
[2023-12-24] MEDS: NOVOLOG FLEXPEN-MODERATE RESISTANCE SC (08:14)
[2023-12-24] MEDS: LASIX 40 MG IV (08:23)
[2023-12-24] MEDS: MAGNESIUM OXIDE 500 MG PO ×2 (08:25→20:26)
[2023-12-24] MEDS: PROTONIX 40 MG PO (08:25)
[2023-12-24] MEDS: SENOKOT-S 1 TABLET PO ×2 (08:25→20:27)
[2023-12-24] MEDS: NEURONTIN 100 MG PO ×3 (08:25→20:27)
[2023-12-24] MEDS: CRESTOR 20 MG PO (08:25)
[2023-12-24] MEDS: BACTROBAN 2% OINTMENT 1 APPLIC NASAL ×2 (08:25→20:26)
[2023-12-24] MEDS: VITAMIN C 500 MG PO (08:25)
[2023-12-24] MEDS: LOW STRENGTH ASPIRIN 81 MG PO (08:25)
--- NOTE | 2023-12-24 10:42 | W.PN.CD ---
Today's Communication / Plan
-
Watch flutter
May need more rate control => restart metoprolol at low dose
Impression / Plan
-
Atypical Atrial Flutter
- New onset
- RVR: 113 bpm on average
- Monitor
Mitral regurgitation
- s/p mitral valve repair #30 mm band annuloplasty by Dr. Mak 12/21/23. also left atrial appendage exclusion #45 mm clip.
- hemodynamically stable
-weaned off Db, still pacing at times, will monitor rhythm, bb still on appropriate hold
- PARAS intra-op 60%. plan for predischarge echo
Anemia, post op
HTN
HLD
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
Hx Left breast cancer, s/p mastectomy and chemo/radiation 2020.
Subjective: Feels good.
Physical Exam
Vital Signs/Labs
Vital Signs
Temp Pulse Resp BP Pulse Ox
98.7 F 96 18 121/54 99
12/24/23 08:15 12/24/23 10:30 12/24/23 08:15 12/24/23 08:23 12/24/23 09:36
12/23/23 12/24/23 12/25/23
06:59 06:59 06:59
Actual Weight 69.1 kg 68.4 kg
12/24/23 04:44
12/24/23 04:44
PT 16.2 Sec (11.4-14.6) H 12/22/23 03:00
INR 1.32 12/22/23 03:00
APTT 36.3 Sec (23.4-35.0) H 12/21/23 10:50
Magnesium 2.1 mg/dl (1.6-2.3) 12/24/23 04:44
Physical Exam
Constitutional: No acute distress
EENT: Anicteric
Cardiovascular: Rhythm/rate is irregular, S1S2 is normal and Rub absent
Respiratory: Respiratory effort normal and Lungs clear to auscul.
GI: Soft and Distention absent
Neuro/Psych: AO x 3
Data Reviewed
-
Date of Service: December 24, 2023
[2023-12-24] MEDS: NSS IV (10:50)
--- NOTE | 2023-12-24 12:20 | PTCARENOTE ---
VS obtained, stable. OOB, ordering lunch.
[2023-12-24] MEDS: FERRLECIT 110 MG IV (13:58)
--- NOTE | 2023-12-24 16:27 | PTCARENOTE ---
VS obtained, assessment unchanged. Patient resting comfortably oob, denies pain.
--- NOTE | 2023-12-24 20:30 | PTCARENOTE ---
rec'd patient. assessment as documented. oriented x3, OOB to chair, x2 assist to bathroom. hygiene performed. afib on monitor. A+V pacing wires to pulse generator, no spikes noted. on RA, denies SOB, satting 100%. dinner at bedside. voided 250ml in
toilet. sternal incision approximated with surgical adhesive, CT dressings C/D/I. RIJ cordis w/ KVO infusing. call warren within reach, care ongoing.
--- NOTE | 2023-12-24 21:40 | PTCARENOTE ---
pt converted to NSR with first degree HB on monitor. HR currently 70-80s. strip printed.
[2023-12-25] VITALS (19 sets, daily range): BP systolic 102–125; BP diastolic 49–64; PULSE 87; O2SAT 97–100; BMI 23.5
[2023-12-25 03:53] LABS: Hematocrit 26.1 % (37.0-47.0); Hemoglobin 8.8 g/dL (12.0-16.0); Mean Corp Hgb Conc. 33.7 g/dL (33.0-37.0); Mean Corpuscular Hgb 29.8 pg (27.0-31.0); Mean Corpuscular Volume 88.5 fL (81.0-99.0); Mean Platelet Volume 10.3 fL (7.4-10.4); Platelet Count 114 10^3/uL (130-400); Red Blood Cell Count 2.95 10^6/uL (4.20-5.40); Red Cell Dist. Width 15.3 % (11.5-14.5)
[2023-12-25 03:55] LABS: Blood Urea Nitrogen 19 mg/dl (7-17); Calcium 7.9 mg/dl (8.4-10.2); Carbon Dioxide 29 mmol/L (22-30); Chloride 103 mmol/L (98-107); Estimated Creatinine Clearance 74 ml/min; Glucose 91 mg/dl (70-99); Potassium 3.5 mmol/L (3.5-5.1); Sodium 133 mmol/L (135-145); eGFR > 60.00
--- NOTE | 2023-12-25 04:00 | PTCARENOTE ---
pt resting overnight, denies pain. repositioned with pillows for comfort. remains SR on monitor. AM labs sent. care ongoing.
--- NOTE | 2023-12-25 05:34 | W.PN.CT ---
Today's Communication / Plan
-
-pod #4
-converted spontaneously from a-fib to nsr at approx 9:30pm- V-paced for a couple of beats when converted (has epicardial pw - VVI 40 backup)
-monitor rhythm. Holding BB and Amio (had 5 sec conversion pause on 12/23)
-weaned off O2
-current meds (Crestor, Protonix, ASA, vit C)
-encourage IS, OOB, ambulate
Assessment / Plan
-
Assessment:
-S/P Standard sternotomy with aortic and bicaval cannulation/ Radical mitral valve repair [30 mm band annuloplasty, 2 pairs of CV 4 [place]-Brennen cords to the posterior leaflet at P2]/Left atrial appendage exclusion [45 millimeter clip], by Dr. Mak,
12/21/23, pod#4
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
-Mild TR
-LVEF 60%
-Hx sinus bradycardia with 1sth deg AVB
-HTN
-HLD
-Prediabetes (hgb A1C 6.1)
-Severe PAD with claudication s/p RLE stent
-Recent Leukopenia, WBC 3.5 (12/01/23)
-Hx Breast Ca S/p Left mastectomy (Chemo and XRT, 2020)
-S/P hysterectomy
-Acute postop blood loss/anemia (stable without blood transfusion)
-Acute postop atelectasis
-Acute postop hypovolemia with subsequent hypervolemia
-Acute postop CHB S/P AV paced @ 80 bpm- currently, in nsr 80s with 1st degree AVB
-Acute postop urinary retention, S/p straight cath x 1.
-Acute postop paroxysmal a-fib/flutter with 5 sec conversion pause on 12/23 - BB held
Discussed patient care with: Nursing and Care Team
Subjective
Procedure
Standard sternotomy with aortic and bicaval cannulation/ Radical mitral valve repair [30 mm band annuloplasty, 2 pairs of CV 4 Alpine-Brennen cords to the posterior leaflet at P2]/Left atrial appendage exclusion [45 millimeter clip], by Dr. Mak, 12/21/23
-
Date of Service: December 25, 2023
Objective Data
-
Lab Results
12/25/23 03:22
12/25/23 03:22
PT 16.2 Sec (11.4-14.6) H 12/22/23 03:00
INR 1.32 12/22/23 03:00
APTT 36.3 Sec (23.4-35.0) H 12/21/23 10:50
Vital Signs
Vital Signs
Temp Pulse Resp BP Pulse Ox
98.9 F 81 18 105/51 95
12/25/23 04:10 12/25/23 05:00 12/24/23 16:26 12/25/23 05:00 12/25/23 05:00
CT Intake/Output/Weight
12/24/23 12/24/23 12/25/23
06:59 18:59 06:59
Intake Total 384 / 1172 500 / 980 480 / 980
Output Total 300 / 700 1175 / 1425 250 / 1425
Balance 84 / 472 -675 / -445 230 / -445
SaO2: 95
Physical Exam
-
General: Awake and AOx3
Cardiovascular: Regular rate & rhythm, No Murmurs and No Rub
Respiratory: Decreased Breath Sounds
Sternum: Stable
Incision: Clean, Dry and Intact
Extremities: No Edema
Data Reviewed
-
Lab Results: Results Reviewed
Medications: Active Meds Reviewed
Chest X-Ray: Report Reviewed and Image Reviewed
ECG: Report Reviewed and Image Reviewed
[2023-12-25] MEDS: TYLENOL 1000 MG PO ×3 (06:15→22:47)
[2023-12-25] MEDS: LIDOCAINE 4% PATCH TOPICAL (07:20)
[2023-12-25] MEDS: BACTROBAN 2% OINTMENT 1 APPLIC NASAL (07:29)
[2023-12-25] MEDS: PROTONIX 40 MG PO (07:30)
[2023-12-25] MEDS: NEURONTIN 100 MG PO ×3 (07:30→22:47)
[2023-12-25] MEDS: VITAMIN C 500 MG PO (07:30)
[2023-12-25] MEDS: CRESTOR 20 MG PO (07:30)
[2023-12-25] MEDS: MAGNESIUM OXIDE 500 MG PO ×2 (07:30→20:04)
[2023-12-25] MEDS: SENOKOT-S 1 TABLET PO ×2 (07:30→20:04)
[2023-12-25] MEDS: LOW STRENGTH ASPIRIN 81 MG PO (07:30)
[2023-12-25] MEDS: KCL 40 MEQ PO (07:30)
--- NOTE | 2023-12-25 08:30 | PTCARENOTE ---
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 RIJ Cordis w/kvo infusing. Epicardial AV pacing wires to pulse generator at backup rate 40bpm, no spikes noted. All procedural sites
stable. Patient updated to plan of care for the day, in agreement. See work list for full assessment and interventions performed.
--- NOTE | 2023-12-25 11:01 | W.PN.CD ---
Today's Communication / Plan
-
-
Watch on tele a few more days and if sinus node dysfunction does not resolve she may need a pacemaker
For now no anticoagulation
Impression / Plan
-
Post op sinus node dysfunction
- Still with sinus pauses periodically needing pacing support
- Watch/hope it resolves
Atypical Atrial Flutter
- New onset
- RVR: 113 bpm on average
- Monitor => currently in sinus
- No anticoagulatin yet
Mitral regurgitation
- s/p mitral valve repair #30 mm band annuloplasty by Dr. Mak 12/21/23. also left atrial appendage exclusion #45 mm clip.
- hemodynamically stable
- weaned off Db, still pacing at times, will monitor rhythm, bb still on appropriate hold
- PARAS intra-op 60%. plan for predischarge echo
Anemia, post op
HTN
HLD
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
Hx Left breast cancer, s/p mastectomy and chemo/radiation 2020.
Subjective: Feels good. She is aware that we hope and anticipate sinus node function improves but small chance pacer will be needed
Physical Exam
Vital Signs/Labs
Vital Signs
Temp Pulse Resp BP Pulse Ox
98.6 F 87 18 125/53 92
12/25/23 07:41 12/25/23 10:00 12/25/23 07:41 12/25/23 09:40 12/25/23 09:40
12/24/23 12/25/23 12/26/23
06:59 06:59 06:59
Actual Weight 68.4 kg 67.9 kg
12/25/23 03:22
12/25/23 03:22
PT 16.2 Sec (11.4-14.6) H 12/22/23 03:00
INR 1.32 12/22/23 03:00
APTT 36.3 Sec (23.4-35.0) H 12/21/23 10:50
Magnesium 2.0 mg/dl (1.6-2.3) 12/25/23 03:22
Physical Exam
Constitutional: No acute distress
EENT: Anicteric
Cardiovascular: Rhythm & rate is regular and Pedal edema is absent
Respiratory: Respiratory effort normal and Lungs clear to auscul.
GI: Soft
Neuro/Psych: AO x 3
Data Reviewed
-
Date of Service: December 25, 2023
[2023-12-25] MEDS: NSS 500 IV (12:14)
--- NOTE | 2023-12-25 12:19 | PTCARENOTE ---
VS obtained, assessment unchanged. Patient resting oob in chair, denies pain, ordering lunch.
[2023-12-25] MEDS: FLEXERIL 5 MG PO (20:03)
--- NOTE | 2023-12-25 20:30 | PTCARENOTE ---
Patient received OOB in chair watching television. Patient A+A+Ox3. No neurological deficits noted. Patient ambulated to bathroom with assistance. Steady gait. Sternal precautions. Voided. Patient to bed. No c/o headache, dizziness or
lightheadedness. No c/o SOB. Room air. SaO2 97%. Chest tube dressing intact. Sinus Rhythm with First Degree AV Block and occasional PVC. Heart rate 80's. Blood pressure 114/54 (70). No c/o chest pain, pressure or discomfort. Epicardial
Temporary Pacemaker - AV Wires - A-wire off/Insulated - VVI Rate 30, Output 5, Sensitivity 0.8. No pacing/pacer spikes noted. Normoactive bowel sounds. No BM. No c/o nausea. No vomiting. Patient with no c/o back or flank pain. Sternal
incision with surgical adhesive - Intact - Open to air. Assessment as documented.
[2023-12-26] VITALS (11 sets, daily range): BP systolic 115–134; BP diastolic 53–88; PULSE 88; O2SAT 98–99; BMI 23.5
--- NOTE | 2023-12-26 00:30 | PTCARENOTE ---
Patient sleeping without difficulty. No further changes from previous assessment.
[2023-12-26 05:36] LABS: Hemoglobin 8.7 g/dL (12.0-16.0); Mean Corp Hgb Conc. 33.5 g/dL (33.0-37.0); Mean Corpuscular Hgb 30.4 pg (27.0-31.0); Mean Corpuscular Volume 90.9 fL (81.0-99.0); Mean Platelet Volume 9.9 fL (7.4-10.4); Platelet Count 117 10^3/uL (130-400); Red Blood Cell Count 2.86 10^6/uL (4.20-5.40); Red Cell Dist. Width 15.2 % (11.5-14.5); White Blood Cell Count 4.6 10^3/uL (4.8-10.8)
[2023-12-26 06:12] LABS: Blood Urea Nitrogen 17 mg/dl (7-17); Carbon Dioxide 30 mmol/L (22-30); Estimated Creatinine Clearance 74 ml/min; Glucose 99 mg/dl (70-99); Potassium 4.2 mmol/L (3.5-5.1); Sodium 135 mmol/L (135-145); eGFR > 60.00
--- NOTE | 2023-12-26 06:15 | PTCARENOTE ---
Patient A+A+Ox3. No neurological deficits noted. Patient OOB to bathroom with minimal assistance. AM lab work collected and sent. Assessment/Interventions as documented.
[2023-12-26 06:16] LABS: Chloride 104 mmol/L (98-107)
--- NOTE | 2023-12-26 06:37 | W.PN.CT ---
Today's Communication / Plan
-
-pod #5
-no issues overnight
-no significant raffy or pauses. <2sec pauses after PACs
-continue to monitor. Holding BB and Amio
-keep pw (VVI 30 backup)
-encourage IS, OOB, ambulate
Assessment / Plan
-
Assessment:
-S/P Standard sternotomy with aortic and bicaval cannulation/ Radical mitral valve repair [30 mm band annuloplasty, 2 pairs of CV 4 [place]-Brennen cords to the posterior leaflet at P2]/Left atrial appendage exclusion [45 millimeter clip], by Dr. Mak,
12/21/23, pod#5
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
-Mild TR
-LVEF 60%
-Hx sinus bradycardia with 1sth deg AVB
-HTN
-HLD
-Prediabetes (hgb A1C 6.1)
-Severe PAD with claudication s/p RLE stent
-Recent Leukopenia, WBC 3.5 (12/01/23)
-Hx Breast Ca S/p Left mastectomy (Chemo and XRT, 2020)
-S/P hysterectomy
-Acute postop blood loss/anemia (stable without blood transfusion)
-Acute postop atelectasis
-Acute postop hypovolemia with subsequent hypervolemia
-Acute postop CHB S/P AV paced @ 80 bpm- currently, in nsr 80s with 1st degree AVB
-Acute postop urinary retention, S/p straight cath x 1.
-Acute postop paroxysmal a-fib/flutter with 5 sec conversion pause on 12/23 - BB held
Discussed patient care with: Nursing and Care Team
Subjective
Procedure
Standard sternotomy with aortic and bicaval cannulation/ Radical mitral valve repair [30 mm band annuloplasty, 2 pairs of CV 4 [place]-Brennen cords to the posterior leaflet at P2]/Left atrial appendage exclusion [45 millimeter clip], by Dr. Mak, 12/21/23
-
Date of Service: December 26, 2023
Objective Data
-
Lab Results
12/26/23 05:10
12/26/23 05:10
PT 16.2 Sec (11.4-14.6) H 12/22/23 03:00
INR 1.32 12/22/23 03:00
APTT 36.3 Sec (23.4-35.0) H 12/21/23 10:50
Vital Signs
Vital Signs
Temp Pulse Resp BP Pulse Ox
98.8 F 84 16 119/59 98
12/26/23 05:00 12/26/23 05:00 12/26/23 05:00 12/26/23 05:00 12/26/23 05:00
CT Intake/Output/Weight
12/25/23 12/25/23 12/26/23
06:59 18:59 06:59
Intake Total 960 / 1460 320 / 910 590 / 910
Output Total 600 / 1775 400 / 700 300 / 700
Balance 360 / -315 -80 / 210 290 / 210
SaO2: 98
Physical Exam
-
General: Awake and AOx3
Cardiovascular: Regular rate & rhythm, No Murmurs and No Rub
Respiratory: Decreased Breath Sounds
Sternum: Stable
Incision: Clean, Dry and Intact
Extremities: No Edema b/l
Data Reviewed
-
Lab Results: Results Reviewed
Medications: Active Meds Reviewed
Chest X-Ray: Report Reviewed and Image Reviewed
ECG: Report Reviewed and Image Reviewed
[2023-12-26] MEDS: TYLENOL 1000 MG PO ×3 (06:51→22:51)
--- NOTE | 2023-12-26 07:47 | W.PN.CD ---
Today's Communication / Plan
-
-Continue supportive therapy.
-On amiodarone/metoprolol for atypical atrial flutter.
Impression / Plan
-
Post op sinus node dysfunction
- Still with sinus pauses periodically needing pacing support
- Watch/hope it resolves
-Pacing requirements appears to be decreasing.
Atypical Atrial Flutter
-Now in sinus.
- RVR: 113 bpm on average
- Monitor => currently in sinus
- No anticoagulatin yet
-Significant long conversion pauses. Patient has epicardial leads and is paced with conversions.
-So far she is staying in sinus rhythm now. Reevaluate if pacemaker is needed.
-Will likely eventually need anticoagulation therapy. Currently postop. And will consider when close to discharge. Status post left atrial appendage clip. Follow-up PARAS may be needed to discontinue anticoagulation therapy.
Mitral regurgitation
- s/p mitral valve repair #30 mm band annuloplasty by Dr. Mak 12/21/23. also left atrial appendage exclusion #45 mm clip.
- hemodynamically stable
- weaned off Db, still pacing at times, will monitor rhythm, bb still on appropriate hold
- PARAS intra-op 60%. plan for predischarge echo
Anemia, post op
HTN
HLD
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
Hx Left breast cancer, s/p mastectomy and chemo/radiation 2020.
Subjective: Feels good. She is aware that we hope and anticipate sinus node function improves but small chance pacer will be needed
Physical Exam
Vital Signs/Labs
Vital Signs
Temp Pulse Resp BP Pulse Ox
98.8 F 84 16 119/59 98
12/26/23 05:00 12/26/23 05:00 12/26/23 05:00 12/26/23 05:00 12/26/23 06:40
12/25/23 12/26/2324
06:59 06:59 06:59
Actual Weight 67.9 kg 68 kg
12/26/23 05:10
12/26/23 05:10
PT 16.2 Sec (11.4-14.6) H 12/22/23 03:00
INR 1.32 12/22/23 03:00
APTT 36.3 Sec (23.4-35.0) H 12/21/23 10:50
Magnesium 2.0 mg/dl (1.6-2.3) 12/26/23 05:10
Physical Exam
Constitutional: No acute distress and Comfortable
EENT: Anicteric and Moist mucous membranes
Cardiovascular: Rhythm & rate is regular, Pedal edema is absent and JVD pressure is normal
Respiratory: Respiratory effort normal and Lungs clear to auscul.
GI: Soft, Distention absent and Non tender
Neuro/Psych: Alert, Oriented and AO x 3
Data Reviewed
-
Date of Service: December 26, 2023
Medical Decision Making: Reviewed Test Results, Independent Historian Assessment and Test Interpretation
EKG: Tracing Personally Visualized and interpreted
Echo: Report Reviewed by me
Labs: Labs Reviewed by me
Old Records: Reviewed
Critical Care Time (in minutes): 31
--- NOTE | 2023-12-26 08:00 | PTCARENOTE ---
Received patient from prior shift. Pt assessment completed, see documentation in medical record. Pt education initiated about ISB use, cough and deep breathing with the heart pillow, mobility, nutrition, pain management, sternal precautions and rest
periods. Pt asked to demonstrate ISB, and patient education completed to correct technique. Pt demonstrated understanding of education using the teach back method. Proper technique with the incentive spirometer will be reinforced, and patient
instructed to use the ISB ten times per hour (minimum). Medication education including medication side effects provided for all 0800 medications prior to administering AM medications. Pt sitting in the chair and resting comfortably. Medication
education will be reinforced throughout the day. IV site flushed and patent, IJ cordis remains due to the risk of epicardial wires failing and emergent transvenous wire placement.
--- NOTE | 2023-12-26 08:15 | PTCARENOTE ---
Pt education reinforced regarding pain management. Pt instructed about the pain management goal to achieve a pain scale of 3 out of 10 pain or less. Pt education provided about pain medications and nonpharmaceutical pain management including
repositioning, rest, distraction, massage, imagery, hot or cold therapy, and exercise. Pt demonstrated an understanding of education using the teach back method. She reports that she does not have pain currently.
[2023-12-26] MEDS: MAGNESIUM OXIDE 500 MG PO ×2 (08:44→20:57)
[2023-12-26] MEDS: PROTONIX 40 MG PO (08:44)
[2023-12-26] MEDS: LOW STRENGTH ASPIRIN 81 MG PO (08:45)
[2023-12-26] MEDS: NEURONTIN 100 MG PO ×3 (08:45→22:50)
[2023-12-26] MEDS: VITAMIN C 500 MG PO (08:45)
[2023-12-26] MEDS: CRESTOR 20 MG PO (08:45)
[2023-12-26] MEDS: SENOKOT-S 1 TABLET PO ×2 (08:45→20:57)
[2023-12-26] MEDS: NSS 500 IV (08:46)
[2023-12-26] MEDS: LIDOCAINE 4% PATCH 1 PATCH TOPICAL (08:47)
--- NOTE | 2023-12-26 10:00 | PTCARENOTE ---
Patient education completed regarding DVT prevention in the post operative period and the risk for PE and/or stroke. Pt instructed about frequent movement, frequent ankle pumps, and the need to increase activity during recovery and after discharge.
Pt ambulatory in the room with SCD off. Fall risk prevention reinforced, and pt instructed not to get up from the chair or bed without the assistance of the nurse. Pt demonstrated an understanding of education using the teach back method. Call warren
in reach of patient at all times. Pt denies pain.
[2023-12-26] MEDS: LASIX 40 MG PO (11:52)
--- NOTE | 2023-12-26 11:59 | PTCARENOTE ---
Patient converted to afib, heart rate controlled. Pt nable to take beta jeanne or amiodarone due to pacer. Will discuss with CT surgery.
--- NOTE | 2023-12-26 12:00 | PTCARENOTE ---
Prior patient assessment remains unchanged. Pt resting comfortably in the chair. Heart sounds S1S2 and lungs clear to auscultation. Pain remains controlled at a 0 out of 10. Pt using ISB every hour, and ISB technique is correct. Pt has ambulated
in the hallway independently and demonstrates proper sternal precautions and heart pillow use.
--- NOTE | 2023-12-26 15:15 | PTCARENOTE ---
Pt due to start po amiodarone now. 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 Pt will remain on backup pacer and receive amiodarone. Remains in afib currently.
--- NOTE | 2023-12-26 15:46 | PTCARENOTE ---
Prior assessment remains unchanged. Heart and lung sounds unchanged. Infection prevention education provided including hand hygiene, incision care at home, and signs/symptoms of infection completed. Pt education provided about afib, afib treatment
and pathophysiology leading to pacer use. Pt given booklet 'patient's guide to living with atrial fibrillation'.
[2023-12-26] MEDS: PACERONE 200 MG PO ×2 (17:05→22:50)
[2023-12-26] MEDS: FLEXERIL 5 MG PO (20:57)
--- NOTE | 2023-12-26 21:00 | PTCARENOTE ---
Patient received OOB in chair watching television. Patient A+A+Ox3. No neurological deficits noted. Patient assisted with minimal assistance to bathroom. Voided. Washed face and performed mouth care. Room air. SaO2 99%. No c/o SOB. Atrial
Fibrillation. Heart rate 90-100's. While in bathroom heart rate 120-130's. No c/o chest pain, pressure or discomfort. Bowel and bladder within normal limits. Trace pedal edema. Positive pulses. Right I.J. Cordis - Intact and patent.
Epicardial Temporary Pacemaker - AV Wires - [id number] to box. VVI Rate 30, Output 5, Sensitivity 0.8. Assessment as documented.
--- NOTE | 2023-12-26 23:00 | PTCARENOTE ---
Patient to bed. Patient given CHG bath and linens changed. Chest tube dressing changed. Assessment as documented.
[2023-12-27] VITALS (13 sets, daily range): BP systolic 99–123; BP diastolic 46–63; BMI 23.1
--- NOTE | 2023-12-27 00:30 | PTCARENOTE ---
Patient sleeping without difficulty. No further changes from previous assessment.
[2023-12-27 04:38] LABS: Hematocrit 26.3 % (37.0-47.0); Hemoglobin 9.1 g/dL (12.0-16.0); Mean Corp Hgb Conc. 34.6 g/dL (33.0-37.0); Mean Corpuscular Hgb 30.2 pg (27.0-31.0); Mean Corpuscular Volume 87.4 fL (81.0-99.0); Mean Platelet Volume 9.5 fL (7.4-10.4); Platelet Count 138 10^3/uL (130-400); Red Blood Cell Count 3.01 10^6/uL (4.20-5.40); Red Cell Dist. Width 15.6 % (11.5-14.5); White Blood Cell Count 4.3 10^3/uL (4.8-10.8)
[2023-12-27 05:01] LABS: Blood Urea Nitrogen 15 mg/dl (7-17); Calcium 8.4 mg/dl (8.4-10.2); Carbon Dioxide 31 mmol/L (22-30); Chloride 101 mmol/L (98-107); Estimated Creatinine Clearance 74 ml/min; Glucose 99 mg/dl (70-99); Potassium 3.7 mmol/L (3.5-5.1); Sodium 135 mmol/L (135-145); eGFR > 60.00
--- NOTE | 2023-12-27 05:52 | W.PN.CT ---
Today's Communication / Plan
-
-pod #6
-no issues overnight
-no significant raffy or pauses. Bursts of RVR with activity
-continue to monitor. David on Amio 200 mg TID, BB being held
-keep pw (VVI 30 backup)
-encourage IS, OOB, ambulate
Assessment / Plan
-
Assessment:
-S/P Standard sternotomy with aortic and bicaval cannulation/ Radical mitral valve repair [30 mm band annuloplasty, 2 pairs of CV 4 [place]-Brennen cords to the posterior leaflet at P2]/Left atrial appendage exclusion [45 millimeter clip], by Dr. Mak,
12/21/23, pod#6
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
-Mild TR
-LVEF 60%
-Hx sinus bradycardia with 1sth deg AVB
-HTN
-HLD
-Prediabetes (hgb A1C 6.1)
-Severe PAD with claudication s/p RLE stent
-Recent Leukopenia, WBC 3.5 (12/01/23)
-Hx Breast Ca S/p Left mastectomy (Chemo and XRT, 2020)
-S/P hysterectomy
-Acute postop blood loss/anemia (stable without blood transfusion)
-Acute postop atelectasis
-Acute postop hypovolemia with subsequent hypervolemia
-Acute postop CHB S/P AV paced @ 80 bpm- currently, in nsr 80s with 1st degree AVB
-Acute postop urinary retention, S/p straight cath x 1.
-Acute postop paroxysmal a-fib/flutter with 5 sec conversion pause on 12/23 - BB held
Subjective
Procedure
Standard sternotomy with aortic and bicaval cannulation/ Radical mitral valve repair [30 mm band annuloplasty, 2 pairs of CV 4 [place]-Brennen cords to the posterior leaflet at P2]/Left atrial appendage exclusion [45 millimeter clip], by Dr. Mak, 12/21/23
-
Date of Service: December 27, 2023
Objective Data
-
Lab Results
12/27/23 04:25
12/27/23 04:25
PT 16.2 Sec (11.4-14.6) H 12/22/23 03:00
INR 1.32 12/22/23 03:00
APTT 36.3 Sec (23.4-35.0) H 12/21/23 10:50
Vital Signs
Vital Signs
Temp Pulse Resp BP Pulse Ox
97.5 F 88 16 122/52 100
12/27/23 04:15 12/27/23 04:15 12/27/23 04:15 12/27/23 04:15 12/27/23 04:15
CT Intake/Output/Weight
12/26/23 12/26/23 12/27/23
06:59 18:59 06:59
Intake Total 600 / 920 640 / 980 340 / 980
Output Total 300 / 700 1450 / 1450
Balance 300 / 220 -810 / -470 340 / -470
SaO2: 100
Physical Exam
-
General: Awake, Oriented and AOx3
Cardiovascular: Irregular rate & rhythm and No Murmurs
Respiratory: Clear and Equal
Sternum: Stable
Incision: Clean, Dry and Intact
Extremities: No Edema and No Erythema
Data Reviewed
-
Lab Results: Results Reviewed
Medications: Active Meds Reviewed
Chest X-Ray: Report Reviewed
ECG: Report Reviewed
--- NOTE | 2023-12-27 06:20 | PTCARENOTE ---
Patient A+A+Ox3. No neurological deficits noted. OOB to bathroom with minimal assistance. OOB to chair. Assessment/Interventions as documented.
[2023-12-27] MEDS: TYLENOL 1000 MG PO ×3 (06:43→22:32)
--- NOTE | 2023-12-27 07:31 | W.PN.CD ---
Today's Communication / Plan
-
Continue Amiodarone. BB held for now.
re-evaluate in AM for need for PPM
Impression / Plan
-
Post op sinus node dysfunction
- Still with sinus pauses periodically needing pacing support
- Watch/hope it resolves
-Pacing requirements appears to be decreasing.
Atypical Atrial Flutter / AF with RVR
- Now in sinus.
- Rare RVR: 113 bpm on average
- Monitor => currently in sinus - Continue Amiodarone. BB held for now.
- No anticoagulation yet
- Significant long conversion pauses. Patient has epicardial leads and is paced with conversions.
- So far she is staying in sinus rhythm now. Reevaluate if pacemaker is needed.
- Will likely eventually need anticoagulation therapy. Currently postop. And will consider when close to discharge. Status post left atrial appendage clip. Follow-up PARAS may be needed to discontinue anticoagulation therapy.
Mitral regurgitation
- s/p mitral valve repair #30 mm band annuloplasty by Dr. Mak 12/21/23. also left atrial appendage exclusion #45 mm clip.
- hemodynamically stable
- weaned off Db, still pacing at times, will monitor rhythm, bb still on appropriate hold
- PARAS intra-op 60%. plan for predischarge echo
Anemia, post op
HTN
HLD
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
Hx Left breast cancer, s/p mastectomy and chemo/radiation 2020.
Subjective: Feels good. She is aware that we hope and anticipate sinus node function improves but small chance pacer will be needed
Physical Exam
Vital Signs/Labs
Vital Signs
Temp Pulse Resp BP Pulse Ox
97.5 F 88 16 122/52 100
12/27/23 04:15 12/27/23 04:15 12/27/23 04:15 12/27/23 04:15 12/27/23 05:53
12/26/23 12/27/23 12/28/23
06:59 06:59 06:59
Actual Weight 68 kg 66.7 kg
12/27/23 04:25
12/27/23 04:25
PT 16.2 Sec (11.4-14.6) H 12/22/23 03:00
INR 1.32 12/22/23 03:00
APTT 36.3 Sec (23.4-35.0) H 12/21/23 10:50
Magnesium 2.0 mg/dl (1.6-2.3) 12/26/23 05:10
Physical Exam
Constitutional: No acute distress and Comfortable
EENT: Anicteric and Moist mucous membranes
Cardiovascular: Rhythm & rate is regular, Pedal edema is absent and JVD pressure is normal
Respiratory: Respiratory effort normal, Lungs clear to auscul., Wheeze Absent, Crackles Absent and Crackles Present
GI: Soft, Distention absent and Non tender
Neuro/Psych: Alert, Oriented and AO x 3
Other: Skin and Cath Site
Data Reviewed
-
Date of Service: December 27, 2023
Medical Decision Making: Reviewed Test Results, Independent Historian Assessment, Test Interpretation and Review of Case with other Provider
EKG: Tracing Personally Visualized and interpreted
Echo: Report Reviewed by me
Labs: Labs Reviewed by me
Old Records: Reviewed
Critical Care Time (in minutes): 31
[2023-12-27] MEDS: MAGNESIUM OXIDE 500 MG PO ×2 (09:19→20:22)
[2023-12-27] MEDS: KCL 40 MEQ PO (09:20)
[2023-12-27] MEDS: SENOKOT-S 1 TABLET PO ×2 (09:20→20:22)
[2023-12-27] MEDS: PACERONE 200 MG PO ×3 (09:20→22:32)
[2023-12-27] MEDS: VITAMIN C 500 MG PO (09:21)
[2023-12-27] MEDS: LIDOCAINE 4% PATCH 1 PATCH TOPICAL (09:21)
[2023-12-27] MEDS: LASIX 20 MG PO (09:21)
[2023-12-27] MEDS: LOW STRENGTH ASPIRIN 81 MG PO (09:21)
[2023-12-27] MEDS: NEURONTIN 100 MG PO ×3 (09:21→22:31)
[2023-12-27] MEDS: CRESTOR 20 MG PO (09:21)
[2023-12-27] MEDS: PROTONIX 40 MG PO (09:21)
--- NOTE | 2023-12-27 09:44 | PTCARENOTE ---
Patient is out of bed in chair resting comfortably with no complaints. Surgeon and PA updated patient on plan to aggressively treat a-fibrillation with IV amiodarone and another 12.5mg dose of Lopressor. Epicardial leads remain on patient at this
time and patients vital signs are stable. RN provided patient with education on current medications and other areas regarding her plan of care.
[2023-12-27] MEDS: LOPRESSOR 12.5 MG PO ×2 (10:43→20:22)
[2023-12-27] MEDS: ELIQUIS 5 MG PO ×2 (10:44→20:22)
[2023-12-27] MEDS: NSS IV ×2 (11:04→15:58)
[2023-12-27] MEDS: CORDARONE 518 MG IV (11:05)
--- NOTE | 2023-12-27 12:38 | PTCARENOTE ---
Patient took a walk with RN down to IVU and back so far this shift. Pt remains in a-fib with HR 90-120, amiodarone gtt was initiated. Patient out of bed to chair for meals.
--- NOTE | 2023-12-27 16:25 | PTCARENOTE ---
Patient remains on amiodarone gtt, voiding in bathroom, eating meals without issue. Pt anxious about taking amiodarone PO and amiodarone IV and asked RN twice to check in with PA about this. RN confirmed with PA and reassured patient that she is
ordered both types of amiodarone in an effort to get her to convert into normal sinus rhythm.
[2023-12-27] MEDS: NSS 500 IV (20:40)
--- NOTE | 2023-12-27 21:00 | PTCARENOTE ---
Patient received resting OOB in chair. Patient A+A+Ox3. No neurological deficits noted. No c/o pain or discomfort. Patient ambulated to bathroom with minimal assistance. Sternal Precautions. Independent in bathroom/self-care activities.
Patient to bed. Room air. SaO2 100%. Atrial Fibrillation. Heart rate 70's. Amiodarone gtt at 0.5 mg/min (16.7 ml/hr). Right I.J. Cordis - Intact and patent. Patient with no c/o chest pain, pressure or discomfort. Bowel and bladder within
normal limits. Sternal incision - Intact - Surgical adhesive - Open to air. Epicardial Temporary Pacemaker - A-Wire off/Connected to box. VVI Rate 30, Output 5, Sensitivity 0.8. No pacing noted. Assessment as documented.
[2023-12-28] VITALS (7 sets, daily range): BP systolic 105–131; BP diastolic 49–70; PULSE 74; O2SAT 100; BMI 23.4
--- NOTE | 2023-12-28 | PTCARENOTE ---
Patient sleeping without difficulty. No changes from previous assessment.
--- NOTE | 2023-12-28 04:42 | W.PN.CT ---
Today's Communication / Plan
-
-pod #7
-no issues overnight. s/p lasix 20 mg PO yesterday
-no significant raffy or pauses. Bursts of RVR with activity improved on amio gtt, currently at 0.5 mg/min. Metoprolol 12.5 mg started.
-Continue asa, rosuvastatin, apixaban
-keep pw (VVI 30 backup)
-encourage IS, OOB, ambulate
-Continue APAP, gabapentin, lidocaine, pantoprazole
Assessment / Plan
-
Assessment:
-S/P Standard sternotomy with aortic and bicaval cannulation/ Radical mitral valve repair [30 mm band annuloplasty, 2 pairs of CV 4 [place]-Brennen cords to the posterior leaflet at P2]/Left atrial appendage exclusion [45 millimeter clip], by Dr. Mak,
12/21/23, pod #7
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
-Mild TR
-LVEF 60%
-Hx sinus bradycardia with 1sth deg AVB
-HTN
-HLD
-Prediabetes (hgb A1C 6.1)
-Severe PAD with claudication s/p RLE stent
-Recent Leukopenia, WBC 3.5 (12/01/23)
-Hx Breast Ca S/p Left mastectomy (Chemo and XRT, 2020)
-S/P hysterectomy
-Acute postop blood loss/anemia (stable without blood transfusion)
-Acute postop atelectasis
-Acute postop hypovolemia with subsequent hypervolemia
-Acute postop CHB S/P AV paced @ 80 bpm- currently, in nsr 80s with 1st degree AVB
-Acute postop urinary retention, S/p straight cath x 1.
-Acute postop paroxysmal a-fib/flutter with 5 sec conversion pause on 12/23 - BB held
Subjective
Procedure
Standard sternotomy with aortic and bicaval cannulation/ Radical mitral valve repair [30 mm band annuloplasty, 2 pairs of CV 4 [place] cords to the posterior leaflet at P2]/Left atrial appendage exclusion [45 millimeter clip], by Dr. Mak, 12/21/23
-
Date of Service: December 28, 2023
Objective Data
-
PT 16.2 Sec (11.4-14.6) H 12/22/23 03:00
INR 1.32 12/22/23 03:00
APTT 36.3 Sec (23.4-35.0) H 12/21/23 10:50
Vital Signs
Vital Signs
Temp Pulse Resp BP Pulse Ox
98.0 F 66 16 119/51 100
12/27/23 22:30 12/28/23 00:00 12/27/23 22:30 12/27/23 22:32 12/27/23 22:31
CT Intake/Output/Weight
12/27/23 12/27/23 12/28/23
06:59 18:59 06:59
Intake Total 360 / 1000 1218.6 / 1618.8 400.2 / 1618.8
Output Total 300 / 1750 500 / 700 200 / 700
Balance 60 / -750 718.6 / 918.8 200.2 / 918.8
SaO2: 100
Physical Exam
-
General: Awake, Oriented and AOx3
Cardiovascular: Irregular rate & rhythm and No Murmurs
Respiratory: Clear and Equal
Sternum: Stable
Incision: Clean, Dry and Intact
Extremities: No Edema and No Erythema
Data Reviewed
-
Lab Results: Results Reviewed
Medications: Active Meds Reviewed
Chest X-Ray: Report Reviewed
ECG: Report Reviewed
[2023-12-28 04:43] LABS: Hematocrit 26.1 % (37.0-47.0); Mean Corp Hgb Conc. 34.5 g/dL (33.0-37.0); Mean Corpuscular Hgb 30.4 pg (27.0-31.0); Mean Corpuscular Volume 88.2 fL (81.0-99.0); Mean Platelet Volume 9.4 fL (7.4-10.4); Platelet Count 158 10^3/uL (130-400); Red Blood Cell Count 2.96 10^6/uL (4.20-5.40); White Blood Cell Count 4.1 10^3/uL (4.8-10.8)
--- NOTE | 2023-12-28 05:00 | PTCARENOTE ---
Patient A+A+Ox3. No neurological deficits noted. AM lab work collected and sent. Vital signs obtained. Continues in Atrial Fibrillation. Heart rate 60-80's. No c/o pain or discomfort. Patient back to sleep. Assessment/Interventions as
documented.
[2023-12-28 05:19] LABS: Blood Urea Nitrogen 16 mg/dl (7-17); Calcium 8.3 mg/dl (8.4-10.2); Carbon Dioxide 29 mmol/L (22-30); Chloride 101 mmol/L (98-107); Estimated Creatinine Clearance 74 ml/min; Glucose 106 mg/dl (70-99); Potassium 4.1 mmol/L (3.5-5.1); Sodium 133 mmol/L (135-145); eGFR > 60.00
[2023-12-28] MEDS: TYLENOL 1000 MG PO (07:11)
--- NOTE | 2023-12-28 08:38 | PTCARENOTE ---
assumed care of pt from previous shift RNkeyona on tele w HR 80's, BP 118/51, + peripheral pulses, no edema noted, Epicardial AV wires intact. Lungs clear, pox 100% on RA. +bs, tolerating PO intake, voids spontaneously. MSI intact. Right IJ cordis w
amiodarone infusing, PIV flushes easily. Plan of care reviewed w the pt and questions encouraged.
--- NOTE | 2023-12-28 08:56 | W.DCSUMMARY ---
Discharge Summary
Discharge Data
Date of Admission: 12/21/23
Date of Discharge: 12/28/23
-
Pending Results: No
Hospital Course
Primary care physician: Jaja Delacruz
Outpatient fancy packer: Trip Walsh (Salo Marrero)
Inpatient consultants: [facility] Cardiology
Procedures:
1. Radical mitral valve repair and left atrial appendage clip
Primary Diagnosis:
1. 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
Secondary Diagnoses:
1. History of breast cancer status postmastectomy and radiation to the left chest(2020)
2. Hypertension
3. Severe peripheral vascular disease status post endovascular intervention
4. Hyperlipidemia
5. Prediabetes (A1c 6.1)
6.Acute postop blood loss/anemia (stable without blood transfusion)
7. Acute postop CHB WITH TEMPORARY AV PACING
8. Postoperative persistent atrial fibrillation
9. Acute postop urinary retention
HPI: Evie Jj is a 78-year-old -[place] female electively admitted on 12/21/2023 for mitral valve repair.
Hospital course: Patient underwent Radical mitral valve repair [#30 mm band annuloplasty, 2 pairs of CV 4 [place]-Brennen cords to the posterior leaflet at P2] and left atrial appendage exclusion [#45 millimeter clip] with Dr. Fabrizio Mak. Patient
required no intraoperative blood products and was admitted to CVICU on Levophed, insulin, and Precedex. Patient was noted to be in complete heart block and required atrial ventricular pacing and temporary pacing wires. Patient was extubated at
1600 on the day of surgery. Mixed venous saturation was noted to be 45% on postoperative day 1, and dobutamine was instituted with increasing mixed venous oxygenation saturation to 61%. Beta-jeanne and amiodarone were held. On postoperative day
#2, the patient developed a syncopal episode while ambulating. Heart rate did not decrease on telemetry review. Patient was straight cathed for 425 cc of urine. Intravenous iron was administered for hemoglobin of 9.5. A TTE reported EF of
55-60%. Mitral valve mean gradient of 4 mmHg. Trace mitral regurgitation and mild TR/AI. Patient developed new onset atrial fibrillation and received Lopressor. On postoperative day #3, patient had a 5-second conversion pause and beta-jeanne
was hold. Temporary pacer was placed to VVI setting at 40 bpm. On postoperative day #4, patient had some paced beats overnight. No anticoagulation or pacer was initiated at this point with the goal to watch over the weekend per cardiology.
Postoperative day #5, patient remained in A-fib/flutter and amiodarone was initiated per cardiology. Patient has short pauses/nonconducted PACs. On postoperative day #6, patient was started on Eliquis for anticoagulation. Amnio drip and
beta-jeanne were continued. On postoperative day #7, there were no pauses noted on review of telemetry. Per discussion with cardiology and surgeon, patient is deemed stable for discharge with need for cardiac monitoring. Primary fancy packer
office notified and patient instructed to go to cardiology office today for monitor placement and follow-up per Dr. Walsh. Temporary pacing wires were clipped at skin level, right IJ was discontinued, and two view x-ray was completed. No pleural
effusion or pneumothorax identified. Patient stable for discharge to home.
Home medication changes:
Stop:
Losartan/hydrochlorothiazide and Amlodipine as SBP <120mmHg
Change:
Metoprolol tartrate changed to succinate
Discharge Plan
-
Patient Disposition: Home (Routine Discharge)
Discharge Diagnosis/Procedures: Mitral valve repair/Left Atrial Appendage clip
Condition: Good
Diet: Low Cholesterol and Low Sodium
Activity: No strenuous activity
Driving Restrictions: Not until seen by your Dr
Bathing Restrictions: OK to Shower
Others Tests: patient instructed to go to Dr. Walsh cardiology office today for placement of rhythm monitor and follow-up
Other Services: Cardiac Rehab
Specialty Instructions: Weigh Daily- Call MD for wt gain/loss 3 lbs overnight/5 lbs in 1 week
Referrals:
CT Transitional Care Nurse [Outside]
(
The Cardiothoracic Transitional Care Nurse will call you to set up a visit in 1-2 days.)
[facility] [Outside] (Please call [facility] at [phone] to schedule your Orientation appointment upon hospital discharge.)
Trip Walsh MD [Active] - 02/02/24 8:40 am
Jaja Delacruz MD [Family Provider] -
Fabrizio Mak MD [Active] - 01/20/24 2:00 pm
Prescriptions:
New
metoprolol succinate [Toprol XL] 25 mg tablet extended release 24 hr
25 mg PO DAILY Qty: 30 1RF
acetaminophen 325 mg Tablet
650 mg PO Q4HPRN PRN (Reason: mild pain,headache,temp >101F ) Qty: 0 0RF
pantoprazole 40 mg Tablet,Delayed Release (Dr/Ec)
40 mg PO DAILY Qty: 30 1RF
gabapentin 100 mg Capsule
100 mg PO TID Qty: 30 0RF
Eliquis 5 mg Tablet
5 mg PO BID Qty: 30 1RF
amiodarone 200 mg tablet
200 mg PO BID Qty: 60 1RF
Rx Instructions:
200mg BID x 2 weeks, then 200mg daily
Continued
aspirin 81 mg Tablet,Chewable
81 mg PO DAILY
magnesium 200 mg Tablet
300 mg PO DAILY
rosuvastatin 20 mg Tablet
20 mg PO DAILY
[place] Plus Ultra
1 tab PO DAILY
Vitamin D3
1 tab PO DAILY
Discontinued
amlodipine 5 mg Tablet
5 mg PO DAILY
metoprolol tartrate 25 mg Tablet
25 mg PO DAILY
losartan-hydrochlorothiazide 100-12.5 mg Tablet
1 tab PO DAILY
Discharge Orders:
Discharge Patient (As Directed); Ordered 12/28/23
Ordered By: Isaura Griffin
Care Plan Goals
Care Plan Goals:
Problem: Readiness for enhanced knowledge related to diagnosis and treatment plan
Goal: Understand your diagnosis and treatment plan needs, including medications if applicable.
Instructions: Know your diagnosis, underlying causes and treatment plan options, including medications if applicable. Consult with your health care team to learn about your diagnosis and treatment plan, including medications if applicable.
Discharge Date and Time
Print Language: AFGHAN
--- NOTE | 2023-12-28 09:15 | CM ---
priced Brianda at pts [facility]- her copay is $47/month and it is in stock. 30 day free coupon placed in pts red dc folder
[2023-12-28] MEDS: MAGNESIUM OXIDE 500 MG PO (09:21)
[2023-12-28] MEDS: LOPRESSOR 12.5 MG PO (09:21)
[2023-12-28] MEDS: PROTONIX 40 MG PO (09:21)
[2023-12-28] MEDS: NEURONTIN 100 MG PO (09:21)
[2023-12-28] MEDS: ELIQUIS 5 MG PO (09:21)
[2023-12-28] MEDS: VITAMIN C 500 MG PO (09:22)
[2023-12-28] MEDS: CRESTOR 20 MG PO (09:22)
[2023-12-28] MEDS: LIDOCAINE 4% PATCH TOPICAL (09:22)
[2023-12-28] MEDS: PACERONE 200 MG PO (09:22)
[2023-12-28] MEDS: LOW STRENGTH ASPIRIN 81 MG PO (09:22)
[2023-12-28] MEDS: SENOKOT-S 1 TABLET PO (09:22)
--- NOTE | 2023-12-28 09:54 | PTCARENOTE ---
cordis removed, pacing wires cut as ordered. Pt for 2 view CXR.
--- NOTE | 2023-12-28 11:15 | PTCARENOTE ---
pt showered and dressed.
--- NOTE | 2023-12-28 11:48 | PTCARENOTE ---
discharge instructions, medication list and follow up appointments reviewed w the pt. Pneumonia vaccine offered, pt refused at this time stating she would rather get vaccine once she follows up w PCP.
== END 2023-12-28 13:48 | disposition home or self-care (01) | DRG 220 ==
LOC: CVICU 04:55
PROVIDERS: Anesthesiology; Nurse Practitioner; Physician Assistant Medical; ADMITTING PHYSICIAN Thoracic Surgery (Cardiothoracic Vascular Surgery); CONSULT PHYSICIAN Internal Medicine Critical Care Medicine; FAMILY PHYSICIAN Family Medicine
PROC: 02L70CK Occlusion of Left Atrial Appendage with Extraluminal Device, Open Approach (ICD-10-PCS; 2023-12-21)
PROC: 02UG0JZ Supplement Mitral Valve with Synthetic Substitute, Open Approach (ICD-10-PCS; 2023-12-21)
PROC: 5A1221Z Performance of Cardiac Output, Continuous (ICD-10-PCS; 2023-12-21)
PROC: B24BZZ4 Ultrasonography of Heart with Aorta, Transesophageal (ICD-10-PCS; 2023-12-21)
DX: I34.0 Nonrheumatic mitral (valve) insufficiency (principal); D62 Acute posthemorrhagic anemia; I44.2 Atrioventricular block, complete; I48.19 Other persistent atrial fibrillation; J98.11 Atelectasis; I48.92 Unspecified atrial flutter; I34.1 Nonrheumatic mitral (valve) prolapse; I49.5 Sick sinus syndrome; I10 Essential (primary) hypertension; I70.211 Atherosclerosis of native arteries of extremities with intermittent claudication, right leg; E78.00 Pure hypercholesterolemia, unspecified; R73.03 Prediabetes; R33.8 Other retention of urine; E87.70 Fluid overload, unspecified; E86.1 Hypovolemia; Z79.899 Other long term (current) drug therapy; Z82.49 Family history of ischemic heart disease and other diseases of the circulatory system; Z85.3 Personal history of malignant neoplasm of breast; Z95.820 Peripheral vascular angioplasty status with implants and grafts; Z92.21 Personal history of antineoplastic chemotherapy; Z92.3 Personal history of irradiation
CPT/HCPCS: 93308; 36415; 71045; 71046; 80048; 80053; 81003; 81015; 82248; 82330; 82565; 82805; 82810; 82947; 82962; 83036; 83735; 84132; 84302; 84520; 85014; 85018; 85025; 85027; 85049; 85610; 85730; 86850; 86900; 86901; 86920; 87070; 90677; 93005; 93312; 93320; 93321; 93325; 93880; 94002; G0009; J2916; P9045

== ENCOUNTER 2024-02-05 21:24 | Inpatient (IN) | payer OTHER, SELFPAY ==
[2024-02-05 17:03] VITALS: BP 166/76
[2024-02-05 19:22] VITALS: BMI 22.5
--- NOTE | 2024-02-05 19:24 | ED.GENMED ---
History of Present Illness
<Haile Stout DO, Resident - Last Filed: 02/08/24 06:45>
General
Chief Complaint: Breathing Problem
Time Seen by Provider: 02/05/24 19:16
History of Present Illness
History of Present Illness:
Patient is a 78-year-old female presenting to the ED with right shoulder pain, chest discomfort, reported pleural effusions and surgical incision weeping. Patient states that she has been having pain for the last few days which has not resolved,
recently had chest imaging done which showed pleural effusions and since today has noticed that her sternal incision has serosanguineous discharge. She reports no headaches, shortness of breath, painful inspiration, abdominal pain, green or yellow
discharge from incision. She spoke today with the CT nurse Tarsha at [facility] who recommended for her to come to the ER and get the fluid drained from her lungs.
Review of Systems
<Haile Stout DO, Resident - Last Filed: 02/08/24 06:45>
Review of Systems
Constitutional: Reports no symptoms
EENT: Reports no symptoms
Respiratory: Reports no symptoms
Cardiac: Reports chest pain
ABD/GI: Reports no symptoms
: Reports no symptoms
Musculoskeletal: Reports neck pain
Skin: Reports other (sternal inscision serosanguinous drainage)
Neurological: Reports no symptoms
Hematologic/Lymphatic: Reports bleeding
Psychiatric: Reports no symptoms
Phy Exam
<Haile Stout DO, Resident - Last Filed: 02/08/24 06:45>
General Physical Exam
General Presentation: well appearing and mild distress
General age: appears stated age
General Skin: warm and dry
General Habitus: normal and elderly
General Mental: alert
Cardiovascular Exam
Cardiovascular Exam: regular rate/rhythm, no edema, no gallop, no JVD, no murmur and normal peripheral pulses
Pulmonary Exam
Pulmonary Exam: lungs clear, no respiratory distress, no rales, chest non tender, no crackles, no rhonchi, no stridor, no wheezing and no cough
Gastrointestinal Exam
Gastrointestinal Exam: normal bowel sounds, non tender, soft and non distended
Musculoskeletal Exam
Musculoskeletal Exam: neck pain
Skin Exam
Skin Exam: redness and other (Sternal incision looks erythematous, indurated, is weeping serosanguineous fluid)
Psychiatric Exam
Psychiatric Exam: normal mood/affect
Scores
<Haile Stout DO, Resident - Last Filed: 02/08/24 06:45>
Heart Failure Risk
Heart Failure Risk Score: Not Applicable
Course
<Haile Stout DO, Resident - Last Filed: 02/08/24 06:45>
Orders/Labs/Results
Orders:
Orders
02/05/24 Breakfast
Sodium, 2 Gram
At Your Request: Full Participation
02/05/24 17:08
ECG [Electrocardiogram (*1)] Urgent
Reason for Study: Shortness of Breath
EKG- Treatment ONCE
02/05/24 19:56
CR Chest - 2 Views Urgent
Comment:
Reason For Exam: chest pain
02/05/24 20:01
CeFAZolin 1 GRAM [Ancef] 1 gram in 5 ml IV NOW
02/05/24 20:14
Complete Blood Count/With Diff Urgent
Comprehensive Metabolic Panel Urgent
PTT Urgent
Prothrombin Time Urgent
02/05/24 21:00
Apixaban [Eliquis] 5 mg PO NOW STA
02/05/24 21:02
CeFAZolin 1 GRAM [Ancef] 1 gram in 5 ml IV NOW
02/05/24 21:03
Admit/Transfer Patient As Directed
Co-Sign Provider:
Level of Care: Inpatient admission
Assign to:: Telemetry
Physician / Group: Bandar
Diagnosis: Pleural Effusion, Post-Op Skin Infection
Reason for Telemetry: Arrhythmia
Date to Stop Telemetry: 02/08/24
Time to Stop Telemetry: 11:00
Reason for Hospitalization: IV abx, Thoracentesis
Expected length of stay greater than two midnights?: Yes
ELOS- Estimated Length of Stay in days: 3
I certify the patient meets the requirements for IP care: Yes
PRN Pain Medication Management As Directed
May give lesser potent ordered pain med per pt: Yes
preference::
Protocol:: Medication orders for pain may be administered in a
manner that supports deferring to patient preference
when the pt is:
- Requesting an ordered lesser potent pain medication.
Least to most potent pain medications are defined
as: acetaminophen < NSAID < tramadol < opioids
(morphine, oxycodone, hydromorphone).
- Requesting a lesser dose of the same medication IF
ORDERED.
- Requesting a less intrusive route of administration
if both routes are prescribed by the provider (PO <
IV).
02/05/24 21:12
Code Status As Directed
Resuscitation Status: Full Code
02/05/24 22:29
Acetaminophen [Tylenol] 650 mg PO Q4HPRN PRN
Amiodarone [Pacerone] 200 mg PO DAILY
Gabapentin [Neurontin] 100 mg PO TID
02/05/24 22:29
Cardiothoracic Surgery Consult Routine
Consulting Provider: Timoteo Ny
Was physician already notified: Yes
IRAD CONSULT Routine
Consulting Provider: Yannick Wahl
Was physician already notified: Yes
Reason for Consult/Procedure: right thoracentesis
Acknowledgement that appropriate orders are entered: Yes
Body Fluid Amylase Routine
Fluid Source: Pleural
Body Fluid Cell Count Routine
What is the Body Fluid: pleural fluid
Comment: post procedure
Body Fluid Glucose Routine
Fluid Source: Pleural
Body Fluid LDH Routine
Fluid Source: Pleural
Body Fluid Protein Routine
Fluid Source: Pleural
Body Fluid Triglycerides Routine
Fluid Source: Pleural
Body Fluid pH Routine
Fluid Source: Pleural
Fluid Culture with Gram Stain Routine
JIGNESH Source: Pleural Fluid
Specimen Description:
Comment: post procedure
Activity As Directed
Activity Level: Out of Bed-Early Mobility
With Assistance
I&O [Intake/ Output] As Directed
Frequency: q12h
Vital Signs As Directed
Frequency: Per unit guidelines
Weight As Directed
Frequency: Daily
IRAD Cytology Routine
Source: Pleural Fluid, Right
Clinical Impression: recent mitral valve repair
02/06/24 06:00
CeFAZolin 2 GRAM [Ancef] 2 grams in 10 ml IV Q8H
02/06/24 06:35
Basic Metabolic Panel IN AM
Complete Blood Count/No Diff IN AM
LDH IN AM
Magnesium IN AM
Total Protein IN AM
02/06/24 08:00
Apixaban [Eliquis] 5 mg PO BID
Aspirin Chewable [Low Strength Aspirin] 81 mg PO DAILY
Metoprolol Xl [Toprol Xl] 25 mg PO DAILY
Pantoprazole [Protonix] 40 mg PO DAILY
Rosuvastatin Calcium [Crestor] 20 mg PO DAILY
02/08/24 11:00
DC Protocol for Telemetry ONCE
Abnormal Lab Results
02/05/24
20:14
RBC 3.64 L 10^6/uL
(4.20-5.40)
Hgb 10.3 L g/dL
(12.0-16.0)
Hct 30.5 L %
(37.0-47.0)
RDW 15.4 H %
(11.5-14.5)
Absolute Lymphs (auto) 0.9 L 10^3/uL
(1.2-3.4)
Absolute Monos (auto) 0.9 H 10^3/uL
(0.1-0.6)
Neutrophils % 76.8 H %
(42.2-75.2)
Lymphocytes % 11.0 L %
(20.5-51.1)
Monocytes % 11.1 H %
(1.7-9.3)
PT 21.6 H Sec
(11.4-14.6)
APTT 56.3 H Sec
(23.4-35.0)
Sodium 133 L mmol/L
(135-145)
Glucose 108 H mg/dl
(70-99)
Total Protein 6.2 L g/dl
(6.3-8.2)
Albumin 3.4 L g/dl
(3.5-5.0)
02/05/24 20:14
02/05/24 20:14
Vital Signs
Initial and Last Documented VS:
Initial Vital Signs
Temp Pulse Resp BP Pulse Ox
99.2 F 88 20 166/76 100
02/05/24 17:03 02/05/24 17:03 02/05/24 17:03 02/05/24 17:03 02/05/24 17:03
Last Documented Vital Signs
Temp Pulse Resp BP Pulse Ox
98.0 F 71 14 149/67 100
02/08/24 03:27 02/08/24 03:27 02/08/24 03:27 02/08/24 03:27 02/08/24 03:27
<Santiago Lopez, DO - Last Filed: 02/05/24 19:58>
Orders/Labs/Results
Orders:
Orders
02/05/24 Breakfast
Sodium, 2 Gram
At Your Request: Full Participation
02/05/24 17:08
ECG [Electrocardiogram (*1)] Urgent
Reason for Study: Shortness of Breath
EKG- Treatment ONCE
02/05/24 19:56
CR Chest - 2 Views Urgent
Comment:
Reason For Exam: chest pain
02/05/24 20:01
CeFAZolin 1 GRAM [Ancef] 1 gram in 5 ml IV NOW
02/05/24 20:14
Complete Blood Count/With Diff Urgent
Comprehensive Metabolic Panel Urgent
PTT Urgent
Prothrombin Time Urgent
02/05/24 21:00
Apixaban [Eliquis] 5 mg PO NOW STA
02/05/24 21:02
CeFAZolin 1 GRAM [Ancef] 1 gram in 5 ml IV NOW
02/05/24 21:03
Admit/Transfer Patient As Directed
Co-Sign Provider:
Level of Care: Inpatient admission
Assign to:: Telemetry
Physician / Group: Bandar
Diagnosis: Pleural Effusion, Post-Op Skin Infection
Reason for Telemetry: Arrhythmia
Date to Stop Telemetry: 02/08/24
Time to Stop Telemetry: 11:00
Reason for Hospitalization: IV abx, Thoracentesis
Expected length of stay greater than two midnights?: Yes
ELOS- Estimated Length of Stay in days: 3
I certify the patient meets the requirements for IP care: Yes
PRN Pain Medication Management As Directed
May give lesser potent ordered pain med per pt: Yes
preference::
Protocol:: Medication orders for pain may be administered in a
manner that supports deferring to patient preference
when the pt is:
- Requesting an ordered lesser potent pain medication.
Least to most potent pain medications are defined
as: acetaminophen < NSAID < tramadol < opioids
(morphine, oxycodone, hydromorphone).
- Requesting a lesser dose of the same medication IF
ORDERED.
- Requesting a less intrusive route of administration
if both routes are prescribed by the provider (PO <
IV).
02/05/24 21:12
Code Status As Directed
Resuscitation Status: Full Code
02/05/24 22:29
Acetaminophen [Tylenol] 650 mg PO Q4HPRN PRN
Amiodarone [Pacerone] 200 mg PO DAILY
Gabapentin [Neurontin] 100 mg PO TID
02/05/24 22:29
Cardiothoracic Surgery Consult Routine
Consulting Provider: Timoteo Ny
Was physician already notified: Yes
IRAD CONSULT Routine
Consulting Provider: Yannick Wahl
Was physician already notified: Yes
Reason for Consult/Procedure: right thoracentesis
Acknowledgement that appropriate orders are entered: Yes
Body Fluid Amylase Routine
Fluid Source: Pleural
Body Fluid Cell Count Routine
What is the Body Fluid: pleural fluid
Comment: post procedure
Body Fluid Glucose Routine
Fluid Source: Pleural
Body Fluid LDH Routine
Fluid Source: Pleural
Body Fluid Protein Routine
Fluid Source: Pleural
Body Fluid Triglycerides Routine
Fluid Source: Pleural
Body Fluid pH Routine
Fluid Source: Pleural
Fluid Culture with Gram Stain Routine
JIGNESH Source: Pleural Fluid
Specimen Description:
Comment: post procedure
Activity As Directed
Activity Level: Out of Bed-Early Mobility
With Assistance
I&O [Intake/ Output] As Directed
Frequency: q12h
Vital Signs As Directed
Frequency: Per unit guidelines
Weight As Directed
Frequency: Daily
IRAD Cytology Routine
Source: Pleural Fluid, Right
Clinical Impression: recent mitral valve repair
02/06/24 06:00
CeFAZolin 2 GRAM [Ancef] 2 grams in 10 ml IV Q8H
02/06/24 06:35
Basic Metabolic Panel IN AM
Complete Blood Count/No Diff IN AM
LDH IN AM
Magnesium IN AM
Total Protein IN AM
02/06/24 08:00
Apixaban [Eliquis] 5 mg PO BID
Aspirin Chewable [Low Strength Aspirin] 81 mg PO DAILY
Metoprolol Xl [Toprol Xl] 25 mg PO DAILY
Pantoprazole [Protonix] 40 mg PO DAILY
Rosuvastatin Calcium [Crestor] 20 mg PO DAILY
02/08/24 11:00
DC Protocol for Telemetry ONCE
Abnormal Lab Results
02/05/24
20:14
RBC 3.64 L 10^6/uL
(4.20-5.40)
Hgb 10.3 L g/dL
(12.0-16.0)
Hct 30.5 L %
(37.0-47.0)
RDW 15.4 H %
(11.5-14.5)
Absolute Lymphs (auto) 0.9 L 10^3/uL
(1.2-3.4)
Absolute Monos (auto) 0.9 H 10^3/uL
(0.1-0.6)
Neutrophils % 76.8 H %
(42.2-75.2)
Lymphocytes % 11.0 L %
(20.5-51.1)
Monocytes % 11.1 H %
(1.7-9.3)
PT 21.6 H Sec
(11.4-14.6)
APTT 56.3 H Sec
(23.4-35.0)
Sodium 133 L mmol/L
(135-145)
Glucose 108 H mg/dl
(70-99)
Total Protein 6.2 L g/dl
(6.3-8.2)
Albumin 3.4 L g/dl
(3.5-5.0)
02/05/24 20:14
02/05/24 20:14
Vital Signs
Initial and Last Documented VS:
Initial Vital Signs
Temp Pulse Resp BP Pulse Ox
99.2 F 88 20 166/76 100
02/05/24 17:03 02/05/24 17:03 02/05/24 17:03 02/05/24 17:03 02/05/24 17:03
Last Documented Vital Signs
Temp Pulse Resp BP Pulse Ox
98.0 F 71 14 149/67 100
02/08/24 03:27 02/08/24 03:27 02/08/24 03:27 02/08/24 03:27 02/08/24 03:27
<Haile Stout DO, Resident - Last Filed: 02/08/24 06:45>
MDM/Problems Addressed
Differential Diagnosis Includes:
post-operative wound
MDM/Problems Addressed:
Patient is a 78-year-old female presenting to the ED with right-sided chest discomfort and sternal incision induration and drainage. Patient is stable. Patient is in A-fib. Patient was given 1 g of Ancef in the ED for indurated wound. CT was
consulted, pending review. CT in process of obtaining records from [facility]. CXR pending. Blood work shows elevated PT and APTT. INR 1.9.
Chronic conditions affecting care:
MVR
Acute Exacerbation and/or Progression of Chronic Illness:
MVR
<Haile Stout DO, Resident - Last Filed: 02/08/24 06:45>
*Pulse Oximetry
Patient hypoxic: no
*EKG
Interpreted by ED Provider?: Yes
EKG Intrepretation Date: 02/05/24
Interpretation: abnormal
Comparison EKG: changes noted
Rate: normal
Rhythm: a-fib
[place]: normal axis
Interval: normal interval
QRS Pattern: normal QRS
*Critical Care Note
Total Time (30-74mins, 75-104mins- exclusive of procedures): Not Applicable
ED Attending Note
<Haile Stout DO, Resident - Last Filed: 02/08/24 06:45>
-
Portions of this chart may have been created with voice recognition software.� Occasional wrong word or��sound alike� substitutions may have occurred due to the inherent limitations of voice recognition software.
<Santiago Lopez DO - Last Filed: 02/05/24 19:58>
ED Attending Note
Patient seen and examined by attending physician: Yes
I performed a history and physical exam of patient and discussed management with resident, I reviewed resident's note and agree with documented findings and plan of care.: Yes
ED Attending Note:
I have seen and evaluated the patient with a [id number] encounter. I have spoken to the resident and involved in the medical history, the physical exam, medical decision making.
Evaluation and management service: agree unless noted differently below.
Results interpretation: agree unless noted differently below.
Focused HPI: 78-year-old female presenting for evaluation of possible wound infection and shortness of breath. Patient had mitral valve replaced last month and has been in A-fib ever since. She is currently on Eliquis. She has a history of breast
cancer. She was complaining to her primary care about her wound and her shortness of breath. She had outpatient CT which was concerning for pleural effusion. She discussed the case with her cardiothoracic team and was sent in for evaluation
Physical exam: Mild wound dehiscence along the sternum with surrounding cellulitic changes.
Medical Decision Making: Given the concern for history of cancer, recent surgery and with pleural effusion, will obtain x-ray. Will start IV antibiotics for the wound and will make CT surgery aware
Discharge Plan
Departure
Patient Disposition: Admit
Date of Disposition: 02/05/24
Time of Disposition: 20:49
Presentation/result/management discussed w/ accepting MD/DO: Hospitalist
Patient with high blood pressure during this ER visit?: Yes
Condition: Fair
Discharge Problem:
Post-operative complication
Interventions
Interventions:
*Risk Screen - Suicide Last Done: 02/05/24 23:26
*General Assessment Last Done: 02/05/24 19:22
*Neglect/Abuse Screening Last Done: 02/05/24 19:21
ED- Fall Risk Assessment Last Done: 02/05/24 19:22
*ED COVID-19 Vaccine History Last Done: 02/05/24 23:26
*Nursing Disposition Last Done: 02/05/24 22:21
ED- Cardiac Assessment Last Done: 02/05/24 19:27
ED- Pulmonary Assessment Last Done: 02/05/24 19:28
Discharge Date and Time
Discharge Date/Time: 02/05/24 22:22
[2024-02-05 19:26] VITALS: BP 160/76
[2024-02-05 20:00] VITALS: BP 144/66
[2024-02-05 20:21] LABS: % Basophils 0.4 % (0-2); % Eosinophils 0.2 % (0-6); % Immature Granulocytes 0.5 % (0-0.5); % Monocytes 11.1 % (1.7-9.3); % Neutrophils 76.8 % (42.2-75.2); Absolute Lymphocytes 0.9 10^3/uL (1.2-3.4); Absolute Monocytes 0.9 10^3/uL (0.1-0.6); Absolute Neutrophils 6.3 10^3/uL (1.4-6.5); Hematocrit 30.5 % (37.0-47.0); Hemoglobin 10.3 g/dL (12.0-16.0); Mean Corp Hgb Conc. 33.8 g/dL (33.0-37.0); Mean Corpuscular Hgb 28.3 pg (27.0-31.0); Mean Corpuscular Volume 83.8 fL (81.0-99.0); Mean Platelet Volume 8.2 fL (7.4-10.4); Nucleated Red Blood Cells % 0 %; Platelet Count 296 10^3/uL (130-400); Red Blood Cell Count 3.64 10^6/uL (4.20-5.40); Red Cell Dist. Width 15.4 % (11.5-14.5); White Blood Cell Count 8.2 10^3/uL (4.8-10.8)
[2024-02-05 20:32] LABS: PT 21.6 Sec (11.4-14.6)
[2024-02-05 20:33] LABS: APTT 56.3 Sec (23.4-35.0)
[2024-02-05] MEDS: ANCEF 5 IV ×2 (20:40→21:32)
[2024-02-05 20:47] LABS: ALT (SGPT) 22 U/L (0-35); AST (SGOT) 26 U/L (14-36); Albumin 3.4 g/dl (3.5-5.0); Alkaline Phosphatase 94 U/L (38-126); Blood Urea Nitrogen 14 mg/dl (7-17); Carbon Dioxide 27 mmol/L (22-30); Chloride 98 mmol/L (98-107); Estimated Creatinine Clearance 74 ml/min; Glucose 108 mg/dl (70-99); Sodium 133 mmol/L (135-145); Total Bilirubin 0.6 mg/dl (0.2-1.3); Total Protein 6.2 g/dl (6.3-8.2); eGFR > 60.00
[2024-02-05 21:00] VITALS: BP 139/65
--- NOTE | 2024-02-05 21:18 | HPS.HSE ---
Addendum entered and electronically signed by Saleem Portillo DO 02/05/24 21:43:
Patient seen and examined independently. Agree with findings and plan as set forth by Florence Lilly PA-C.
Patient is a 78y F with PMH significant for A-Fib, breast cancer and recent MV repair who presents to ED complaining of R sided pleuritic pain. Patient underwent MVR and atrial clip placement on 12/[address] Mak. She states she was recovering
well, but noted R chest discomfort radiating around the R flank. Pain is worse with inspiration. Patient denies any cough, fevers / chills, etc. She had outpatient imaging that reportedly showed pleural effusion. In addition, she noted fluid
drainage from the inferior aspect of her midline sternotomy incision just this AM. Patient reports fairly significant fluid drainage and sense of 'heaviness' of the R breast. Mild amount of bloody drainage. No noted alanis pus.
Patient spoke with CT Surgery office and was advised to present to the ED for evaluation.
Ass:
Pleuritic Right Chest Pain
Right Pleural Effusion
Post-Op Skin Drainage / Possible Infection
s/p MV Repair and Atrial Clip 12/21/23
Atrial Fibrillation
ASCVD
Benign Hypertension
Breast Cancer s/p Left Mastectomy and XRT (2020)
Plan:
Admit for further evaluation and treatment.
Pain control / supportive care for now.
IR evaluation for diagnostic thoracentesis.
? trial of NSAIDs depending on fluid analysis.
IV Ancef for now for SSTI at sternotomy site.
CT Surgery evaluation.
Continue usual outpatient medications including metoprolol and Eliquis.
Original Note:
Family Physician
-
Family Physician: Jaja Delacruz
Chief Complaint
-
Right sided chest pain
History of Present Illness
Patient is a 78 y/o female with a PMH of HLD, AFib on Eliquis, mitral valve regurgitation s/p mitral valve repair on 12/20, and breast cancer in 2020 who reports to the ED for right-sided chest discomfort. Patient states that she saw Dr. Kunz on 01/19
and told him she was experiencing right-sided chest pain. She states the pain has gotten progressively worse. She called her PCP who ordered a chest CT and was informed she had a pleural effusion. She admits to diaphoresis only on the right side
Thursday and Thursday this week. She denies any shortness of breath, palpitations, fever, or chills. She noticed yesterday that her midline incision was draining some fluid and blood. She denies pain at incision site, warmth, or purulent discharge.
She spoke with a nurse from CT surgery who recommended her to come to the ED.
Medical History
Past Medical History
Past Medical History: Reports Other
Additional Past Medical History:
Mitral Valve Regurgitation s/p Mitral Valve Repair on December 21, 2023
Post-Op Atrial Fibrillation
Peripheral Artery Disease s/p RLE Stents
Essential Hypertension
Hyperlipidemia
Breast Cancer s/p Left Mastectomy and Chemo/Radiation
Past Surgical History: Reports Other
Additional Past Surgical History:
Mitral Valve Repair
Left Atrial Appendage Exclusion
Left Mastectomy
Social History
Tobacco: Non-smoker
Alcohol: None
Family History
Family History: Not pertinent
Allergies / Home Medications
Allergies reflects when Allergies were last updated in [facility].
Home Medications with original date entered in [facility]
Allergy/Medication List:
Allergies
Allergy/AdvReac Type Severity Reaction Status Date / Time
No Known Allergies Allergy Verified 02/05/24 20:39
Home Medications
[place] Plus Ultra 1 tab PO DAILY Supplement 11/25/23
Vitamin D3 1 tab PO DAILY Supplement 11/25/23
aspirin 81 mg chewable tablet 81 mg PO DAILY Blood Clot Prevention/Tx 11/25/23
magnesium 200 mg tablet 300 mg PO DAILY Electrolyte Repletion 11/25/23
rosuvastatin 20 mg tablet 20 mg PO DAILY High Cholesterol 11/25/23
acetaminophen 325 mg tablet 650 mg (2 x 325 mg) PO Q4HPRN PRN mild pain,headache,temp >101F #0 tabs 12/28/23
apixaban 5 mg tablet (Eliquis) 5 mg PO BID Blood clot prevention/tx #30 tabs 12/28/23
gabapentin 100 mg capsule 100 mg PO TID nerve pain #30 caps 12/28/23
metoprolol succinate 25 mg tablet,extended release 24 hr (Toprol XL) 25 mg PO DAILY Heart disease/condition #30 tabs 12/28/23
pantoprazole 40 mg tablet,delayed release 40 mg PO DAILY GI prophylaxis while on Eliquis #30 tabs 12/28/23
amiodarone 200 mg tablet 200 mg PO QDAY Arrhythmia 02/05/24
Review of Systems
-
A 12 point ROS was completed and negative except as noted: Yes
Constitutional: Reports Night Sweats; Denies Fever
Respiratory: Denies Cough or Trouble Breathing
Cardiac: Denies Palpitations
Abdomen/GI: Denies Abdominal Pain, Nausea, Vomiting or Diarrhea
Physical Exam
Vital Signs
Vital Signs
Temp Pulse Resp BP Pulse Ox
99.2 F 76 31 144/66 97
02/05/24 17:03 02/05/24 20:45 02/05/24 20:45 02/05/24 20:00 02/05/24 20:15
Physical Exam
General: Comfortable and Conversant
HEENT: Anicteric and Moist mucous membranes
Respiratory: Non Labored Respirations and Other (Absent breath sound right base with a few faint crackles on the right; Left lung banda are clear)
Cardiac: S1/S2, Regular Rhythm and Murmur
GI: Soft, Non Tender and Non Distended
Rectal: Deferred by Provider
Musculoskeletal: No Clubbing, No Cyanosis and No Edema
Skin: Warm, Dry and Other (Small opening along sternal incision site with 1cm area of fluctuance and mostly serosanguinous drainage noted)
Neuro: Awake, Alert, Oriented and Nonfocal/grossly intact
Laboratory Results
-
02/05/24 20:14
02/05/24 20:14
Laboratory Results
PT 21.6 Sec (11.4-14.6) H 02/05/24 20:14
INR 1.90 02/05/24 20:14
APTT 56.3 Sec (23.4-35.0) H 02/05/24 20:14
Total Bilirubin 0.6 mg/dl (0.2-1.3) 02/05/24 20:14
AST 26 U/L (14-36) 02/05/24 20:14
ALT 22 U/L (0-35) 02/05/24 20:14
Alkaline Phosphatase 94 U/L (38-126) 02/05/24 20:14
Data Reviewed
-
Diagnostic Radiology: Image Personally Visualized and interpreted (Resolved left pleural effusion; Moderate right pleural effusion)
Lab Data: Labs Reviewed by me
Impression/Plan
-
Right Chest Pain, possible related to Right Pleural Effusion
-Consult IR for diagnostic and therapeutic thoracentesis
Post-Op Skin Infection
-Continue Ancef
-Consult CT surgery
Mitral Valve Regurgitation s/p Mitral Valve Repair on December 21, 2023
-Consult CT surgery
Post-Op Atrial Fibrillation
-Continue Eliquis
-Continue amiodarone and metoprolol for rate/rhythm control
Peripheral Artery Disease s/p RLE Stents
-Continue aspirin
Essential Hypertension
-Continue Metoprolol
Hyperlipidemia
-Continue Crestor
Hx Breast Cancer s/p Left Mastectomy and Chemo/Radiation
DVT proph: Eliquis
Code Status: Full Code
[2024-02-05] MEDS: ELIQUIS 5 MG PO (21:32)
[2024-02-05 22:00] VITALS: BP 150/61
--- NOTE | 2024-02-05 22:30 | PTCARENOTE ---
Patient admitted from ED. Patient AAO x3, on RA, in no acute distress. Patient oriented to room and call bel within reach.
[2024-02-05] MEDS: NEURONTIN 100 MG PO (22:48)
[2024-02-05] MEDS: PACERONE PO ×2 (22:48→22:58)
[2024-02-05] MEDS: MELATONIN 5 MG PO (22:48)
[2024-02-05] MEDS: TYLENOL 650 MG PO (22:53)
[2024-02-05 22:56] VITALS: BP 158/73
[2024-02-06 03:00] VITALS: BP 131/60
--- NOTE | 2024-02-06 04:31 | CONSULT.CT ---
Consultation
-
Date/Time Consultation Requested: 02/05/24
Date/Time Consultation Performed: 02/05/24
Requesting Provider: Dr. Stout
Performing Provider: Mukund Bills PA-C for Dr. Ny
Reason for Consultation: discharge from sternal incision, s/p recent MV repair
Patient History
Physicians
Family Physician: Dr. Jaja Delacruz
Outpatient Roto Mixer Operator: Dr. Trip Walsh ([facility])
Inpatient Roto Mixer Operator: [facility] Cardiology
History of Present Illness
-Ms Jj is pleasant 78 yo female who recently underwent Mitral valve repair (#30mm band) and DANNA exclusion on 12/21/[address] Mak. Her postop course initially involved complete heart block, requiring temporary pacing. She then developed atrial
fibrillation and was discharged on 12/28/23 on Eliquis, Toprol, and Amiodarone. She also has hx of HTN, HLD, pre-diabetes (A1c 6.1), hx breast CA with L mastectomy and radiation to the L chest 2020.
Pt continued to experience postoperatively pain under the R breast radiating to the R lateral chest wall, which seems worse with touch and inspiration. She has been having difficulty sleeping d/t pain and reports little relief with Tylenol and
Gabapentin. Pt states that as part of workup of this pain, she underwent chest CT at [place] on 02/03, which reportedly showed R pleural effusion and she was advised to come in for thoracentesis.
Ms Jj also reports having some drainage at the sternal incision. She noted a blister at the sternum few days ago, which popped and now with small amount of bloody discharge. She denies having cough, fever or chills. Sternum appears stable with
no movement or clicking with mild warmth and erythema. No palpable fluctuation at the incision noted.
Past Medical History
Past Medical History: Atrial Fib, HTN and Hypercholesterolemia
Severe PVD with endovascular intervention; hx postop urinary retention
Past Surgical History
-s/p radical MV repair (#30 mm band annuloplasty, 2 pairs of CV 4 Maben-Brennen cords to the posterior leaflet at P2) and DANNA exclusion with #45mm clip on 12/21/[address] Mak
-s/p L mastectomy and radiation for breast CA in 2020
Family History
Mother: N/A
Father: N/A
Social History
Drug: None
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
Living: With Spouse
Allergies
Allergy/AdvReac Type Severity Reaction Status Date / Time
No Known Allergies Allergy Verified 02/05/24 20:39
Home Medications
�Medication �Instructions �Recorded �Confirmed �Type
Kendall Plus Ultra 1 tab PO DAILY Supplement 11/25/23 02/05/24 History
Vitamin D3 1 tab PO DAILY Supplement 11/25/23 02/05/24 History
aspirin 81 mg chewable tablet 81 mg PO DAILY Blood Clot 11/25/23 02/05/24 History
Prevention/Tx
magnesium 200 mg tablet 300 mg PO DAILY Electrolyte 11/25/23 02/05/24 History
Repletion
rosuvastatin 20 mg tablet 20 mg PO DAILY High Cholesterol 11/25/23 02/05/24 History
acetaminophen 325 mg tablet 650 mg (2 x 325 mg) PO Q4HPRN PRN 12/28/23 02/05/24 Rx
mild pain,headache,temp >101F #0
tabs
apixaban 5 mg tablet (Eliquis) 5 mg PO BID Blood clot 12/28/23 02/05/24 Rx
prevention/tx #30 tabs
gabapentin 100 mg capsule 100 mg PO TID nerve pain #30 caps 12/28/23 02/05/24 Rx
metoprolol succinate 25 mg 25 mg PO DAILY Heart 12/28/23 02/05/24 Rx
tablet,extended release 24 hr disease/condition #30 tabs
(Toprol XL)
pantoprazole 40 mg tablet,delayed 40 mg PO DAILY GI prophylaxis 12/28/23 02/05/24 Rx
release while on Eliquis #30 tabs
amiodarone 200 mg tablet 200 mg PO QDAY Arrhythmia 02/05/24 02/05/24 History
Review of Systems
-
History Source: Patient
General: Reports Sleep Disturbance (d/t incision and R chest wall pain)
HEENT: Reports No Symptoms
Respiratory: Reports No Symptoms
Cardiac: Reports Other (chest wall pain )
Abdomen/GI: Reports No Symptoms
: Reports No Symptoms
Musculoskeletal: Reports No Symptoms
Skin: Reports Other (blister at sternal incision recently, now small amount of bloody drainage)
Neurological: Reports No Symptoms
Physical Exam
Vital Signs
Temp 98.9 F 02/06/24 03:00
Temp route: Oral 02/06/24 03:00
Pulse 76 02/06/24 03:00
Rhythm: Atrial fibrillation 02/05/24 22:30
Resp Rate 18 02/06/24 03:00
Blood pressure 131/60 02/06/24 03:00
Blood pressure extremity used: Left upper arm 02/06/24 03:00
Position: Lying 02/06/24 03:00
MAP (cuff-Marcela Monitor) 87 02/05/24 22:00
SaO2 99 02/06/24 03:00
Oxygen Mode of Delivery Room air 02/06/24 03:00
Can the patient verbally communicate their pain? Yes 02/05/24 23:26
Actual Weight 143 lb 4.807 oz 02/05/24 19:22
Body Mass Index (BMI) 22.5 02/05/24 19:22
Labs
PT 21.6 Sec (11.4-14.6) H 02/05/24 20:14
APTT 56.3 Sec (23.4-35.0) H 02/05/24 20:14
Exam
General: Well Developed, Well Nourished and Other (appears emotional when talks about pain and postop course)
HEENT: Normocephalic, PERRLA and EOMI
Neck: Trachea Midline
Respiratory: Other (decreased breath sounds at R base, clear on L)
Cardiac: S1/S2 and Irregular Rhythm (no murmur or rub. No edema)
GI: Soft, Non Tender, Non Distended and Normal Bowel Sounds
Skin: Warm, Dry and Other (small amount of erythma and warmth at sternal incision)
Neuro: AO x 3
Assessment / Plan
-
Impression:
- Pleuritic postop Right chest wall pain
- Right Pleural Effusion
- Sternal incision drainage. Tmax 102.1, normal wbc on 02/04 - started on iv Ancef
- s/p MV repair and DANNA clip on 12/21/23
- Atrial fibrillation- on Eliquis
- hx breast CA with L mastectomy and xrt 2020
- PVD with endovascular intervention
- HTN/HLD
- Pre-diabetes
Echo 12/23/23 (postop):
Normal biventricular size and systolic function without regional wall motion
abnormality. Mild concentric left ventricular hypertrophy.
s/p Mitral valve repair. Mean gradient is 4mmHg. Trace mitral regurgitation.
Compared to the prior on 12/21/23, intraop PARAS, the mitral valve is now repaired.
Plan:
-will check chest CT to look for any collection/infection
-follow temps and wbc
-fluid analysis pending. Started on iv Ancef
-IR evaluation for possible R thoracentesis (on Eliquis for a-fib)
-further recommendations after discussing findings with Dr. Ny
Data Reviewed
-
EKG: Tracing Personally Visualized and interpreted
Echo: Report Reviewed by me
Radiology: Image Personally Visualized and interpreted
Labs: Labs Reviewed by me
Old Records: Reviewed
Total Time Spent with Patient (in minutes): 30
[2024-02-06] MEDS: ANCEF 10 IV ×2 (05:55→14:08)
[2024-02-06 06:00] VITALS: BMI 21.9
[2024-02-06 07:15] VITALS: BP 143/63
[2024-02-06 07:16] LABS: Hematocrit 32.3 % (37.0-47.0); Mean Corp Hgb Conc. 34.1 g/dL (33.0-37.0); Mean Corpuscular Volume 85.2 fL (81.0-99.0); Mean Platelet Volume 8.7 fL (7.4-10.4); Platelet Count 302 10^3/uL (130-400); Red Blood Cell Count 3.79 10^6/uL (4.20-5.40); Red Cell Dist. Width 15.5 % (11.5-14.5)
[2024-02-06 07:42] LABS: Blood Urea Nitrogen 12 mg/dl (7-17); Calcium 9.1 mg/dl (8.4-10.2); Carbon Dioxide 28 mmol/L (22-30); Chloride 100 mmol/L (98-107); Estimated Creatinine Clearance 63 ml/min; Glucose 103 mg/dl (70-99); LDH 219 U/L (120-246); Magnesium 1.7 mg/dl (1.6-2.3); Potassium 4.2 mmol/L (3.5-5.1); Sodium 136 mmol/L (135-145); Total Protein 5.9 g/dl (6.3-8.2); eGFR > 60.00
[2024-02-06] MEDS: LOW STRENGTH ASPIRIN 81 MG PO (08:39)
[2024-02-06] MEDS: PROTONIX 40 MG PO (08:39)
[2024-02-06] MEDS: ELIQUIS 5 MG PO ×2 (08:39→19:40)
[2024-02-06] MEDS: NEURONTIN 100 MG PO ×3 (08:40→22:32)
[2024-02-06] MEDS: PACERONE 200 MG PO (08:40)
[2024-02-06] MEDS: TOPROL XL 25 MG PO (08:40)
[2024-02-06] MEDS: CRESTOR 20 MG PO (08:40)
[2024-02-06] MEDS: TYLENOL 650 MG PO ×3 (09:06→22:34)
--- NOTE | 2024-02-06 09:15 | W.PN.HOSP.TC ---
Today's Communication/Plan
-
ID consult
Obtain record of previous CT chest
IR consult for thoracentesis
Assessment / Plan
Assessment / Plan
Gen-AAOx3, NAD
HEENT-NC, AT, anicteric, clear oral mm
Neck-supple
CV-reg, no M, +S1/S2
Lungs-clear B/L
Abd-soft, NT, ND
Ext-no edema
Musculoskeletal-no cyanosis, clubbing
Skin-warm and dry
Neuro-grossly non-focal
Psych-calm, cooperative
Sternotomy wound infection -consult ID. Currently on IV cefazolin. Fever noted last night, white blood cell count normal. Hemodynamically stable. Patient states that she noticed bloody drainage from sternal wound this week, about 3 days ago.
Symptomatic right pleural effusion -after sternotomy and radical mitral valve repair with 30 mm band annuloplasty, left atrial appendage exclusion. Suspect postoperative effusion. Awaiting thoracentesis. IR consulted. CT chest ordered but
patient would like to hold off and try to get records as she just had a CT of the chest 2 days ago at [facility]. Record request ordered.
CT surgery consulted.
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
Atrial fibrillation/atypical atrial flutter -continue amiodarone, Eliquis.
Essential hypertension -stable.
Severe PAD -hide right lower extremity stenting.
Hyperlipidemia -on rosuvastatin.
history of breast cancer on the left -treated with left mastectomy and radiation 2020.
Full code
Anticipated Discharge: > 48 hours
Subjective/Interval History
-
Date of Service: February 06, 2024
Patient seen and examined. Complaining of right-sided pleuritic chest pain, constant. Denies shortness of breath. Denies significant cough.
Objective Data
-
Labs:
Laboratory Results
02/06/24
06:35
WBC 8.0
Hgb 11.0 L
Hct 32.3 L
Plt Count 302
Sodium 136
Potassium 4.2
Chloride 100
Carbon Dioxide 28
BUN 12
Creatinine 0.7
Glucose 103 H
Calcium 9.1
Vital Signs:
Vital Signs
Temp Pulse Resp BP Pulse Ox
99.3 F 81 16 143/63 98
02/06/24 07:15 02/06/24 08:40 02/06/24 07:15 02/06/24 08:40 02/06/24 07:15
Review of Systems
-
History Source: Patient
All other systems: Reviewed and negative
[2024-02-06 11:33] VITALS: BP 114/56
--- NOTE | 2024-02-06 13:59 | CON.ID ---
Consultation
-
Date/Time Consultation Requested: 02/06/24 9:15
Date/Time Consultation Performed: 02/06/24 14:00
Requesting Provider: Dr Alvarez
Performing Provider: Dr Vernon
Reason for Consultation: Post-Op Skin Infection
Chief Complaint / Past History
Chief Complaint
right sided chest pain
History of Present Illness
Ms Jj is a 78 year old female with history of breast cancer s/p mastectomy, recent MV repair with band annuloplasty and core-mikey cords for myxomatous degeneration, DANNA exclusion, placement of temp artial and ventricular pacing wires which
appears to have been uncomplicated. Recovery has been typical until she began to notice significant drainage and blood from her sternal incision site. No fevers but she has has sweats. New right sided chest pain has been progressively worsening.
Her PCP ordered a CT chest which showed a pleural effusion. No palpitations or shortness of breath. No pain in the incision or warmth. No recent steroids. No injectable medications at home.
Since arrival here she has been febrile to 102.1, bp stable, wbc 8.2 and 8.0, hgb 11.0 plt 302, L shift was noted on arrival, cr 0.7, na 136, t bili -.6, ast 26, alt 22, alk phos 94, ldh 219, repeat CT chest here done but not yet read by radiology -
i suspect inflammatory changes around the sternum - complicated by streak artifact, pleural effusion at least small and on the right, she is currently on cefazolin, ID is consulted for assistance with management.
Past History
Additional Past Medical History:
Mitral Valve Regurgitation s/p Mitral Valve Repair on December 21, 2023
Post-Op Atrial Fibrillation
Peripheral Artery Disease s/p RLE Stents
Essential Hypertension
Hyperlipidemia
Breast Cancer s/p Left Mastectomy and Chemo/Radiation
Additional Past Surgical History:
Mitral Valve Repair
Left Atrial Appendage Exclusion
Left Mastectomy
Allergy History:
No Known Allergies Allergy (Verified 02/05/24 20:39)
Medications Reviewed: Yes
Social History
Tobacco: Non-Smoker
Alcohol: None
Drug: None
Family History
Family History: Not Pertinent
Review of Systems
Review of Systems
General: Fever and Chills
Vital Signs
Temp Pulse Resp BP Pulse Ox
98.4 F 84 16 114/56 98
02/06/24 11:33 02/06/24 11:33 02/06/24 11:33 02/06/24 11:33 02/06/24 11:33
Physical Exam
Lab / Diagnostic Study Results
02/06/24 06:35
02/06/24 06:35
Abs Immat Gran (auto) 0.0 10^3/uL (0-0.05) 02/05/24 20:14
Absolute Neuts (auto) 6.3 10^3/uL (1.4-6.5) 02/05/24 20:14
Absolute Lymphs (auto) 0.9 10^3/uL (1.2-3.4) L 02/05/24 20:14
Absolute Monos (auto) 0.9 10^3/uL (0.1-0.6) H 02/05/24 20:14
Absolute Basos (auto) 0.0 10^3/uL (0-0.2) 02/05/24 20:14
Immature Gran % 0.5 % (0-0.5) 02/05/24 20:14
Neutrophils % 76.8 % (42.2-75.2) H 02/05/24 20:14
Lymphocytes % 11.0 % (20.5-51.1) L 02/05/24 20:14
Monocytes % 11.1 % (1.7-9.3) H 02/05/24 20:14
Eosinophils % 0.2 % (0-6) 02/05/24 20:14
Basophils % 0.4 % (0-2) 02/05/24 20:14
PT 21.6 Sec (11.4-14.6) H 02/05/24 20:14
INR 1.90 02/05/24 20:14
Assessment / Plan
Suspected Surgical Site Infection
Possible Underlying Osteomyelitis
R sided pleural effusion
- wound culture aerobic and anaerobic sent
- blood cultures x2
- await radiology read of CT chest
- IR has been consulted for possible thoracentesis - cell count, culture, protein, ldh, peripheral LDH and culture already ordered
- switched to vancomycin and cefepime, stop cefazolin
- may consider a course of home IV antibiotics
- CT surgery consulted
- follow clinically
[2024-02-06 15:10] VITALS: BP 125/60
[2024-02-06] MEDS: VANCOCIN 300 ML IV (15:28)
[2024-02-06] MEDS: VANCOCIN 300 MG IV (15:28)
--- NOTE | 2024-02-06 16:47 | CM ---
Patient seen at bedside. Patient states that her granddaughter lives with her. Patient stated that the home is a one story home with one step to enter and she has no dme. Patient state that she uses the [facility] in [place] on [address]. Patient
indicated that her plan is to go home with no needs. CM will continue to follow for discharge planning needs.
Plan; home with VN vs home with no need.
[2024-02-06] MEDS: MAXIPIME 2000 MG IV (17:22)
[2024-02-06] MEDS: STERILE WATER FOR INJECTION 10 ML IV (17:22)
[2024-02-06 19:49] VITALS: BP 132/66
[2024-02-06] MEDS: MELATONIN 5 MG PO (22:32)
--- NOTE | 2024-02-06 23:22 | PHA.VAN.IN ---
Assessment
- Assessment
Renal Function: Appears similar to baseline
Concomitant Antimicrobials: Cefepime
AUC Dosing Plan
- Dosing Variables
Dosing Weight (kg): 63.3
Dosing CrCl (ml/min): 63
Vd coefficient (L/kg): 0.7
- Empiric Dosing
Initial / Loading Dose: Vancomycin 1500mg given 02/05 at 1530
Maintenance Regimen: Vancomycin 1250mg IV Q24h to start 02/06 at 0600
Estimated AUC (mcg*h/mL): 512
Estimated Peak (mcg*h/mL): 37.9
Estimated Trough (mcg/ml): 10.3
Estimated Half Life (H): 12.2
- Monitoring
No levels ordered at this time: Will f/u and order levels prior to steady state.
Pharmacokinetics Vancomycin I
- -
Patient Age: 78
Patient Sex: Female
Vancomycin Day #: 1
Indication: Skin And Soft Tissue
Requesting Provider: Dr. Vernon
Pertinent Antimicrobial Allergies:
No Known Allergies Allergy (Verified 02/05/24 20:39)
Height / Weight:
Height 5 ft 7 in
Actual Weight 63.304 kg
Pertinent Past Medical History: recent MV repair (01/03), h/o breast cancer
- Vital Signs / Lab Results
Temp Pulse Resp BP Pulse Ox
99.3 F 73 18 132/66 99
02/06/24 19:49 02/06/24 19:49 02/06/24 19:49 02/06/24 19:49 02/06/24 19:49
Lab Results - Hematology
02/05/24 02/06/24
20:14 06:35
WBC 8.2 8.0
Lab Results - Chemistry
02/05/24 02/06/24
20:14 06:35
BUN 14 12
Creatinine 0.6 0.7
Estimated Creat Clear 74 63
Albumin 3.4 L
[2024-02-06 23:30] VITALS: BP 146/76
[2024-02-07 03:34] VITALS: BP 132/70
[2024-02-07] MEDS: MAXIPIME 2000 MG IV ×2 (03:51→16:33)
[2024-02-07] MEDS: STERILE WATER FOR INJECTION 10 ML IV ×2 (03:51→16:33)
[2024-02-07] MEDS: VANCOCIN 275 MG IV (05:36)
[2024-02-07 05:57] VITALS: BMI 21.9
[2024-02-07 07:10] VITALS: BP 144/66
[2024-02-07] MEDS: ELIQUIS 5 MG PO ×2 (08:06→20:12)
[2024-02-07] MEDS: CRESTOR 20 MG PO (08:06)
[2024-02-07] MEDS: PROTONIX 40 MG PO (08:06)
[2024-02-07] MEDS: PACERONE 200 MG PO (08:06)
[2024-02-07] MEDS: LOW STRENGTH ASPIRIN 81 MG PO (08:06)
[2024-02-07] MEDS: TOPROL XL 25 MG PO (08:06)
[2024-02-07] MEDS: NEURONTIN 100 MG PO ×3 (08:06→21:34)
[2024-02-07] MEDS: TYLENOL 650 MG PO ×2 (08:15→21:34)
--- NOTE | 2024-02-07 10:08 | W.PN.HOSP.TC ---
Today's Communication/Plan
-
Analgesics
Continue antibiotics
Await cultures
Await thoracentesis
Assessment / Plan
Assessment / Plan
Gen-AAOx3, NAD
HEENT-NC, AT, anicteric, clear oral mm
Neck-supple
CV-reg, no M, +S1/S2
Lungs-clear B/L
Abd-soft, NT, ND
Ext-no edema
Musculoskeletal-no cyanosis, clubbing
Skin-warm and dry
Neuro-grossly non-focal
Psych-calm, cooperative
Sternotomy wound infection - likely surgical site infection. CT chest noted, moderate soft tissue edema anterior and posterior to the sternotomy without sternotomy dehiscence, sternal wire fracture, or acute osteomyelitis. Small crescent-shaped
fluid collection in the medial right pectoralis major muscle, unclear if infection versus aseptic seroma or edema. Will defer to CT surgery.
Appreciate ID input. Currently on IV vancomycin, cefepime. Blood culture sent yesterday, wound culture pending.
Febrile on arrival but has been afebrile since. White blood cell count normal.
Symptomatic right pleural effusion - after sternotomy and radical mitral valve repair with 30 mm band annuloplasty, left atrial appendage exclusion. Suspect postoperative effusion. Awaiting thoracentesis. IR consulted. CT chest completed, shows
moderate size right pleural effusion with adjacent compressive subsegmental atelectasis. Minimal left effusion.
Patient has complaints of right-sided pleuritic pain due to fusion. Add Toradol, tramadol.
Constipation -order MiraLAX.
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
Atrial fibrillation/atypical atrial flutter -continue amiodarone, Eliquis.
Essential hypertension -stable.
Severe PAD -hide right lower extremity stenting.
Hyperlipidemia -on rosuvastatin.
history of breast cancer on the left -treated with left mastectomy and radiation 2020.
Full code
Anticipated Discharge: > 48 hours
Subjective/Interval History
-
Date of Service: February 07, 2024
Patient seen and examined. Complaining of right lateral chest pain. No obvious shortness of breath.
Objective Data
-
Vital Signs:
Vital Signs
Temp Pulse Resp BP Pulse Ox
98.5 F 85 16 144/66 100
02/07/24 07:10 02/07/24 08:06 02/07/24 07:10 02/07/24 08:06 02/07/24 08:00
I&O
02/06/24 02/07/24 02/08/24
06:59 06:59 06:59
Intake Total 1859
Balance 1859
Review of Systems
-
History Source: Patient
All other systems: Reviewed and negative
[2024-02-07] MEDS: TORADOL 30 MG IV (10:27)
[2024-02-07] MEDS: MIRALAX 17 GRAMS PO (10:27)
--- NOTE | 2024-02-07 10:52 | PHA.VAN.FU ---
Vancomycin Assessment / Plan
- Assessment
Renal Function: Stable
WBC's are: WNL
In the past 24 hrs, patient has been: Afebrile
Concomitant Antimicrobials: cefepime
- Dosing Plan
Continue: vancomycin 1250 mg q24h - first dose 02/06 0600 after 1500 mg loading dose
- Monitoring Plan
No level(s) ordered at this time: Consider level when pt reaches steady state
- Follow Up
Pharmacy will continue to follow.
Vancomycin Follow UP
- -
Patient Age: 78
Patient Sex: Female
Vancomycin Day #: 2
Indication: Skin And Soft Tissue
Requesting Provider: Dr. Vernon
Pertinent Antimicrobial Allergies:
No Known Allergies Allergy (Verified 02/05/24 20:39)
Height / Weight:
Height 5 ft 7 in
Actual Weight 63.503 kg
Pertinent Past Medical History: recent MV repair (01/03), h/o breast cancer
- Vital Signs / Lab Results
Temp Pulse Resp BP Pulse Ox
98.5 F 85 16 144/66 100
02/07/24 07:10 02/07/24 08:06 02/07/24 07:10 02/07/24 08:06 02/07/24 08:00
Lab Results - Hematology
02/05/24 02/06/24
20:14 06:35
WBC 8.2 8.0
Lab Results - Chemistry
02/05/24 02/06/24
20:14 06:35
BUN 14 12
Creatinine 0.6 0.7
Estimated Creat Clear 74 63
Albumin 3.4 L
[2024-02-07 11:10] VITALS: BP 108/57
--- NOTE | 2024-02-07 12:50 | W.PN.UPDATE ---
Update Note
Progress Note Update
Looks well. Only c/o some pain under right breast. CT reports moderate soft tissue edema anterior and posterior to the sternotomy. No CT evidence for sternotomy dehiscence, sternal wire fracture, or acute osteomyelitis.
Small thin crescent-shaped fluid collection in the medial right pectoralis major muscle. Diagnostic possibilities are (1) a soft tissue abscess or (2) aseptic seroma and edema. No further fever. Continue Vanco/cefepime per ID. Local wound care.
Median sternotomy site with denuded area mid portion with small amount serosanguinous drainage. Patient should follow up with CT surgery 1 week after discharge.
[2024-02-07 15:10] VITALS: BP 119/54
[2024-02-07 19:30] VITALS: BP 120/55
[2024-02-07] MEDS: MELATONIN 5 MG PO (21:34)
[2024-02-07 23:43] VITALS: BP 124/54
--- NOTE | 2024-02-07 23:50 | PTCARENOTE ---
Upon start of shift pt noted to be in NSR in 60s- pt stating 'I have been in a fib since my valve repair'. HR 60s. Pts HR then dropped to 35-40s, did not sustain. Pt awake, alert, asymptomatic sitting in bed talking on the phone. EKG completed-
Lane [employer]IC[employer]OCIATE aware. Pt then began having irregular rhythm with p waves on telemetry rates 40-50s, pt remains asymptomatic, VSS- Lane [employer]ICING ASSOCIATE aware, multiple strips mounted in chart.
[2024-02-08] VITALS (8 sets, daily range): BP systolic 65–149; BP diastolic 53–68; BMI 22.3
[2024-02-08] MEDS: MAXIPIME 2000 MG IV ×2 (04:36→17:40)
[2024-02-08] MEDS: STERILE WATER FOR INJECTION 10 ML IV ×2 (04:37→17:41)
[2024-02-08] MEDS: VANCOCIN 275 MG IV (05:45)
[2024-02-08] MEDS: PACERONE 200 MG PO (08:35)
[2024-02-08] MEDS: PROTONIX 40 MG PO (08:35)
[2024-02-08] MEDS: CRESTOR 20 MG PO (08:35)
[2024-02-08] MEDS: TOPROL XL 25 MG PO (08:35)
[2024-02-08] MEDS: NEURONTIN 100 MG PO ×3 (08:36→21:06)
[2024-02-08] MEDS: LOW STRENGTH ASPIRIN 81 MG PO (08:36)
[2024-02-08] MEDS: ELIQUIS 5 MG PO ×2 (08:36→21:06)
[2024-02-08] MEDS: MIRALAX 17 GRAMS PO ×2 (08:37→21:06)
[2024-02-08] MEDS: FLUSH (NSS) 1 FLUSH IV (08:38)
--- NOTE | 2024-02-08 09:42 | W.PN.HOSP.TC ---
Today's Communication/Plan
-
see bold
Assessment / Plan
Assessment / Plan
Sternotomy wound infection - likely surgical site infection. CT chest noted, moderate soft tissue edema anterior and posterior to the sternotomy without sternotomy dehiscence, sternal wire fracture, or acute osteomyelitis. Small crescent-shaped
fluid collection in the medial right pectoralis major muscle, unclear if infection versus aseptic seroma or edema. Wound cultures growing Pseudomonas and a second gram-negative, blood cultures negative to date. ID recommends continuing cefepime,
vancomycin stopped 02/07. IR to assess the possible right pectoris major fluid collection.
Symptomatic right pleural effusion - after sternotomy and radical mitral valve repair with 30 mm band annuloplasty, left atrial appendage exclusion. Suspect postoperative effusion. For thoracentesis today. CT chest completed, shows moderate size
right pleural effusion with adjacent compressive subsegmental atelectasis. Minimal left effusion.
Patient has complaints of right-sided pleuritic pain due to fusion. Added Toradol, tramadol.
Constipation -increased laxatives
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
Atrial fibrillation/atypical atrial flutter -continue amiodarone, Eliquis.
Essential hypertension -stable.
Severe PAD -hide right lower extremity stenting.
Hyperlipidemia -on rosuvastatin.
History of breast cancer on the left -treated with left mastectomy and radiation 2020.
DVT prophylaxis�Eliquis
Full code
Total time spent to see the patient on the floor, examine the patient, review data and lab results, discuss treatment plan with patient, nursing staff around 45 minutes.
Physical Exam
General: No acute distress
HEENT: Normocephalic, Atraumatic, EOMI, MMM
Respiratory: Clear to Auscultation bilaterally
Cardiac: Normal S1/S2, Regular Rate and Rhythm
Chest Wall: Sternotomy wound with infection noted
GI: Soft, Nontender, Nondistended, Normal Bowel Sounds
Extremities: No Clubbing, Cyanosis, or Edema
Neuro: Nonfocal/Grossly Intact
Psych: Calm, Cooperative
Derm: No Visible lesions
Anticipated Discharge: Within 24 hours
Subjective/Interval History
-
Date of Service: February 08, 2024
Sternal pain much improved from admission. Denies shortness of breath. Complains of constipation. No fever, no vomiting.
Objective Data
-
Vital Signs:
Vital Signs
Temp Pulse Resp BP Pulse Ox
99.1 F 72 18 145/65 99
02/08/24 07:35 02/08/24 07:35 02/08/24 07:35 02/08/24 07:35 02/08/24 07:35
I&O
02/07/24 02/08/24 02/09/24
06:59 06:59 06:59
Intake Total 1859 720 / 720
Balance 1859 720 / 720
--- NOTE | 2024-02-08 09:45 | WOUNDNOTE ---
ALLEY RN note: Patient admitted with post op complications, R pleural effusion.
See H&P for complete history.
PMH: recent sternotomy, radical mitral valve repair, L mastectomy, A fib/flutter, HTN, L cataract with lens implant.
Wound Location and type/assessment: Patient admitted with: sternal incision, small open area that is draining moderate amts of serosanguineous drainage, no odor, clean, pink shallow base. Wound cultures pending, I&D note reviewed. Patient offers no
complaint of pain upon dressing change. Sacrum and heels intact.
Appetite: Good.
Pressure redistribution devices in place: On Accumax, turns self and is ad sierra.
Plan: Local wound care to sternal wound bid until drainage less then once a day. Depending on results of wound cultures, may need topical antibiotic if I&D deems necessary. Will confirm orders with hospitalist and updated nurse.
Updated care plan and will follow as needed.
Note to case management of equipment requested for discharge: VN for wound care if unable to do self.
Recommend follow up with surgeon.
--- NOTE | 2024-02-08 10:31 | W.PN.ID1 ---
Addendum entered and electronically signed by Ani Vernon MD 02/08/24 15:26:
heard back from Dr Hutchins IR - he doubts pectoral fluid collection, will use POCUS in IR suite to assess
Original Note:
Date of Service
Date of Service: February 08, 2024
Today's Communication
- cbc, cmp, esr, crp in the AM ordered
- CT chest: Moderate soft tissue edema anterior and posterior to the sternotomy, small/thin possible abscess in the medial right pectoralis it is < 2 cm in one dimension and simple shaped
- mildly concerned by the thin pectoral fluid collection - if
- QTc 446
- place picc
- continue cefepime
- stop vancomycin
Assessment / Plan
Suspected Surgical Site Infection
Possible Underlying Osteomyelitis
R sided pleural effusion
- exudative effusion, unlikely empyema based on pH, gluose
- follow up pleural fluid culture
- surgical site culture pseudomonas and a second gram negative
- blood cultures x2 no growth to date
- cbc, cmp, esr, crp in the AM ordered
- CT chest: Moderate soft tissue edema anterior and posterior to the sternotomy, small/thin possible abscess in the medial right pectoralis it is < 2 cm in one dimension and simple shaped
- mildly concerned by the thin pectoral fluid collection - if
- QTc 446
- place picc
- continue cefepime
- stop vancomycin
- would likely benefit from a course of home IV antibiotics x6 weeks, would follow by suppression if feasible
- appreciate CT surgery - left message to discuss right pectoral collection
- follow clinically
Chief Complaint
-: Other (surgical site infection)
Subjective / Review of Systems
afebrile
bp stable
no labs cbc or bmp today
s/p thora pH 7.5, wbc 4000 with 57% pmns, ldh 191, protein 3.6; gram stain wbcs seen but no organisms
message sent to IR to see if it might be possible to sample the right pectoral collection; discussed with Dr Ny as well
Vital Signs / Physical Exam
Vital Signs
Vital Signs
Temp Pulse Resp BP Pulse Ox
99.1 F 72 18 145/65 99
02/08/24 07:35 02/08/24 07:35 02/08/24 07:35 02/08/24 07:35 02/08/24 07:35
Physical Exam
Constitutional: No Acute Distress
Cardiovascular: Regular Rate and S1/S2; Negative Murmur or Rub
Pulmonary: Clear and Symmetric; Negative Wheezes or Rales
Gastrointestinal: Soft, Non Tender, Non Distended and Normal Bowel Sounds
Skin: Warm and Dry; Negative Rash or Jaundice
Wound: Other (surgical site less redness, less drainage, there is small spot that continues to drain scant serous fluid)
Objective Data
Lab Data
Lab Results
02/06/24 06:35
02/06/24 06:35
PT 21.6 Sec (11.4-14.6) H 02/05/24 20:14
INR 1.90 02/05/24 20:14
APTT 56.3 Sec (23.4-35.0) H 02/05/24 20:14
Estimated Creat Clear 63 ml/min 02/06/24 06:35
Total Bilirubin 0.6 mg/dl (0.2-1.3) 02/05/24 20:14
AST 26 U/L (14-36) 02/05/24 20:14
ALT 22 U/L (0-35) 02/05/24 20:14
Alkaline Phosphatase 94 U/L (38-126) 02/05/24 20:14
Most recent labs reviewed.
Micro Results:
02/06/24 16:59 Anaerobic Culture - Preliminary
Suture Culture pending. Anaerobic cultures are examined after 3
days incubation. Additional information to follow.
02/06/24 16:59 Wound Culture - Preliminary
Suture Site Pseudomonas aeruginosa
Gram negative bacilli
Gram Stain - Preliminary
02/06/24 16:00 Blood Culture - Preliminary
Blood/Venous No Growth in 24 hours- Final report to follow
02/06/24 15:00 Blood Culture - Preliminary
Blood/Venous No Growth in 24 hours- Final report to follow
Care Review
Plan reviewed with: Physician (Dr Ny - pectorials collection)
[2024-02-08 11:46] LABS: Body Fluid pH 7.5
[2024-02-08 12:00] LABS: Body Fluid Amylase 51 U/L; Body Fluid Glucose 116 mg/dl; Body Fluid LDH 191 U/L; Body Fluid Protein 3.6 g/dl; Body Fluid Triglycerides < 30 mg/dl
[2024-02-08 12:05] LABS: Body Fluid Mononuclear 42.2 %; Body Fluid Polymorphonuclear 57.8 %; Body Fluid WBC 4134 /CUMM
[2024-02-08 12:25] LABS: Body Fluid Second Tech AMA
[2024-02-08] MEDS: SENOKOT-S 2 TABLET PO ×2 (12:39→21:06)
--- NOTE | 2024-02-08 12:45 | PTCARENOTE ---
received from [facility]AD post right thoracentesis- no distress noted , vitals noted, band aid intact to right mid back. plan of care on going.
[2024-02-08] MEDS: FLUSH (NSS) 2 FLUSH IV (17:41)
[2024-02-08] MEDS: MELATONIN 5 MG PO (21:06)
[2024-02-08] MEDS: TYLENOL 650 MG PO (21:07)
[2024-02-09] VITALS (7 sets, daily range): BP systolic 97–127; BP diastolic 57–87; PULSE 66; O2SAT 98; BMI 22.4
[2024-02-09] MEDS: STERILE WATER FOR INJECTION 10 ML IV ×2 (03:33→16:14)
[2024-02-09] MEDS: MAXIPIME 2000 MG IV ×2 (03:33→16:14)
[2024-02-09 05:04] LABS: % Basophils 0.7 % (0-2); % Eosinophils 3.1 % (0-6); % Immature Granulocytes 0.5 % (0-0.5); % Lymphocytes 15.7 % (20.5-51.1); % Monocytes 12.9 % (1.7-9.3); % Neutrophils 67.1 % (42.2-75.2); Absolute Eosinophils 0.2 10^3/uL (0-0.7); Absolute Lymphocytes 0.9 10^3/uL (1.2-3.4); Absolute Monocytes 0.8 10^3/uL (0.1-0.6); Absolute Neutrophils 3.9 10^3/uL (1.4-6.5); Hematocrit 26.9 % (37.0-47.0); Hemoglobin 9.1 g/dL (12.0-16.0); Mean Corp Hgb Conc. 33.8 g/dL (33.0-37.0); Mean Corpuscular Hgb 27.6 pg (27.0-31.0); Mean Corpuscular Volume 81.5 fL (81.0-99.0); Mean Platelet Volume 8.4 fL (7.4-10.4); Nucleated Red Blood Cells % 0 %; Platelet Count 312 10^3/uL (130-400); Red Cell Dist. Width 15.2 % (11.5-14.5); White Blood Cell Count 5.9 10^3/uL (4.8-10.8)
[2024-02-09 05:31] LABS: ALT (SGPT) 26 U/L (0-35); AST (SGOT) 34 U/L (14-36); Albumin 2.9 g/dl (3.5-5.0); Alkaline Phosphatase 78 U/L (38-126); Blood Urea Nitrogen 17 mg/dl (7-17); Calcium 8.7 mg/dl (8.4-10.2); Carbon Dioxide 26 mmol/L (22-30); Chloride 104 mmol/L (98-107); Estimated Creatinine Clearance 74 ml/min; Glucose 109 mg/dl (70-99); Potassium 4.4 mmol/L (3.5-5.1); Sodium 135 mmol/L (135-145); Total Bilirubin 0.6 mg/dl (0.2-1.3); Total Protein 5.6 g/dl (6.3-8.2); eGFR > 60.00
--- NOTE | 2024-02-09 08:30 | W.PN.HOSP.TC ---
Today's Communication/Plan
-
see bold
Assessment / Plan
Assessment / Plan
Sternotomy wound infection - likely surgical site infection. CT chest noted, moderate soft tissue edema anterior and posterior to the sternotomy without sternotomy dehiscence, sternal wire fracture, or acute osteomyelitis. Small crescent-shaped
fluid collection in the medial right pectoralis major muscle, unclear if infection versus aseptic seroma or edema. Wound cultures growing Pseudomonas and a second gram-negative, blood cultures negative to date. ID recommends continuing cefepime x
6 weeks, vancomycin stopped 02/07. No drainable right pectoral or subpectoral fluid collection was identified by IR via ultrasound 02/08.
Symptomatic right pleural effusion - after sternotomy and radical mitral valve repair with 30 mm band annuloplasty, left atrial appendage exclusion. Suspect postoperative effusion. CT chest completed, shows moderate size right pleural effusion with
adjacent compressive subsegmental atelectasis. Minimal left effusion. Status post right thoracentesis on 02/08/2024 draining 600 cc of clear jay fluid. Exudative, but not empyema. Follow-up pleural fluid culture, negative to date.
Constipation -increased laxatives
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 Discussed with CT surgery attending, who will see patient today.
Atrial fibrillation/atypical atrial flutter -continue amiodarone, Eliquis.
Essential hypertension -stable.
Severe PAD -hide right lower extremity stenting.
Hyperlipidemia -on rosuvastatin.
History of breast cancer on the left -treated with left mastectomy and radiation 2020.
DVT prophylaxis�Eliquis
Full code
Total time spent to see the patient on the floor, examine the patient, review data and lab results, discuss treatment plan with patient, nursing staff around 50 minutes.
Physical Exam
General: No acute distress
HEENT: Normocephalic, Atraumatic, EOMI, MMM
Respiratory: Clear to Auscultation bilaterally
Cardiac: Normal S1/S2, Regular Rate and Rhythm
Chest Wall: Sternotomy wound with infection noted
GI: Soft, Nontender, Nondistended, Normal Bowel Sounds
Extremities: No Clubbing, Cyanosis, or Edema
Neuro: Nonfocal/Grossly Intact
Psych: Calm, Cooperative
Derm: No Visible lesions
Anticipated Discharge: Within 24 hours
Subjective/Interval History
-
Date of Service: February 09, 2024
Patient reports her breathing has improved dramatically. Her substernal pain is also improved. No fever, no vomiting.
Objective Data
-
Labs:
Laboratory Results
02/09/24
04:52
WBC 5.9
Hgb 9.1 L
Hct 26.9 L
Plt Count 312
Sodium 135
Potassium 4.4
Chloride 104
Carbon Dioxide 26
BUN 17
Creatinine 0.6
Glucose 109 H
Calcium 8.7
Total Bilirubin 0.6
AST 34
ALT 26
Alkaline Phosphatase 78
Vital Signs:
Vital Signs
Temp Pulse Resp BP Pulse Ox
99.1 F 66 17 99/57 99
02/09/24 07:20 02/09/24 07:20 02/09/24 07:20 02/09/24 07:20 02/09/24 07:20
I&O
02/08/24 02/09/24 02/10/24
06:59 06:59 06:59
Intake Total 720 / 720 1200 / 1200
Balance 720 / 720 1200 / 1200
[2024-02-09] MEDS: ELIQUIS 5 MG PO ×2 (08:32→20:52)
[2024-02-09] MEDS: NEURONTIN 100 MG PO ×3 (08:32→20:51)
[2024-02-09] MEDS: LOW STRENGTH ASPIRIN 81 MG PO (08:32)
[2024-02-09] MEDS: CRESTOR 20 MG PO (08:32)
[2024-02-09] MEDS: SENOKOT-S 2 TABLET PO ×2 (08:32→20:51)
[2024-02-09] MEDS: TOPROL XL 25 MG PO (08:33)
[2024-02-09] MEDS: MIRALAX 17 GRAMS PO ×2 (08:33→20:51)
[2024-02-09] MEDS: PACERONE 200 MG PO (08:34)
[2024-02-09] MEDS: PROTONIX 40 MG PO (08:34)
--- NOTE | 2024-02-09 10:36 | W.PN.ID1 ---
Date of Service
Date of Service: February 09, 2024
Today's Communication
- has picc
- continue cefepime - pending final sensi
- would likely benefit from a course of home IV antibiotics x6 weeks, would follow by suppression if feasible
- appreciate CT surgery and IR input
Assessment / Plan
Suspected Surgical Site Infection
Possible Underlying Osteomyelitis
R sided pleural effusion
- exudative effusion, unlikely empyema based on pH, glucose
- follow up pleural fluid culture - no growth to date
- surgical site culture pseudomonas and a second gram negative - awaiting final ID and sensitvities
- blood cultures x2 no growth to date
- ESR pending, CRP 180 as expected
- CT chest: Moderate soft tissue edema anterior and posterior to the sternotomy, small/thin possible abscess in the medial right pectoralis it is < 2 cm in one dimension and simple shaped - on review with Dr Ny and Dr Hutchins yesterday - they
were not confident that there was truly a collection. IR will assist today with US and if there is a collection sampling for culture
- QTc 446
- has picc
- continue cefepime - pending final sensi
- would likely benefit from a course of home IV antibiotics x6 weeks, would follow by suppression if feasible
- appreciate CT surgery and IR input
- follow clinically
Chief Complaint
-: Other (surgical site infection)
Subjective / Review of Systems
afebrile
bp stable
blood cultures no growth to date
pleural fluid no growth
wound cultures in progress
still with some purulent drainage from the site
much less pleuritic right chest pain
Vital Signs / Physical Exam
Vital Signs
Vital Signs
Temp Pulse Resp BP Pulse Ox
99.1 F 66 17 99/57 99
02/09/24 07:20 02/09/24 07:20 02/09/24 07:20 02/09/24 07:20 02/09/24 07:20
Physical Exam
Constitutional: No Acute Distress
Cardiovascular: Regular Rate and S1/S2; Negative Murmur or Rub
Pulmonary: Clear and Symmetric; Negative Wheezes or Rales
Gastrointestinal: Soft, Non Tender, Non Distended and Normal Bowel Sounds
Skin: Warm and Dry; Negative Rash or Jaundice
Wound: Other (still with 1-2 ccs of purulent drainage from the surgical site)
Objective Data
Lab Data
Lab Results
02/09/24 04:52
02/09/24 04:52
PT 21.6 Sec (11.4-14.6) H 02/05/24 20:14
INR 1.90 02/05/24 20:14
APTT 56.3 Sec (23.4-35.0) H 02/05/24 20:14
Estimated Creat Clear 74 ml/min 02/09/24 04:52
Total Bilirubin 0.6 mg/dl (0.2-1.3) 02/09/24 04:52
AST 34 U/L (14-36) 02/09/24 04:52
ALT 26 U/L (0-35) 02/09/24 04:52
Alkaline Phosphatase 78 U/L (38-126) 02/09/24 04:52
C-Reactive Protein 183.90 mg/L (0.0-10.00) H 02/09/24 04:52
Most recent labs reviewed.
Micro Results:
02/06/24 16:59 Anaerobic Culture - Preliminary
Suture Culture pending. Anaerobic cultures are examined after 3
days incubation. Additional information to follow.
02/06/24 16:59 Wound Culture - Preliminary
Suture Site Pseudomonas aeruginosa
Gram negative bacilli
Gram Stain - Preliminary
02/08/24 11:16 Body Fluid Culture - Preliminary
Pleural Fluid No Growth After 18-24 Hours
Gram Stain - Preliminary
02/06/24 16:00 Blood Culture - Preliminary
Blood/Venous No Growth in 48 hours- Final report to follow
02/06/24 15:00 Blood Culture - Preliminary
Blood/Venous No Growth in 48 hours- Final report to follow
Care Review
Plan reviewed with: Physician (Dr Kiran and Dr Hutchins - )
[2024-02-09 11:20] LABS: Erythrocyte Sed Rate 85 mm/hour (0-20)
--- NOTE | 2024-02-09 11:24 | W.PN.UPDATE ---
Update Note
Progress Note Update
Patient seen at bedside this morning. Questions answered to patient's satisfaction and she expressed understanding.
--- NOTE | 2024-02-09 14:15 | W.PN.UPDATE ---
Update Note
Progress Note Update
US performed in IR. No drainable right pectoral or subpectoral fluid collection was identified. No abnormal fluid collection seen.
--- NOTE | 2024-02-09 14:37 | W.PN.UPDATE ---
Update Note
Progress Note Update
CARDIAC SURGERY ATTENDING:
It was my pleasure to evaluate Mrs. Evie Jj at her bedside this afternoon. I greatly appreciate the expertise and wonderful care of my medical and infectious disease colleagues. Mrs. Jj remains afebrile and has no significant
leukocytosis. She had 1 positive culture for pseudomonas aeruginosa from a wound site on 02/05 (presumptively from the small area of open granulation tissue at the midpoint of her sternotomy incision), but has since remained culture negative.
On exam, I appreciate no significant erythema, warmth, tenderness to palpation, purulent drainage, fluctuance, or other signs of active infection around her sternotomy. Her sternotomy is stable to firm palpation throughout its length. It is
possible that her fever was secondary to atelectasis due to her right pleural effusion which was drained successfully for 600 mL of jay, clear fluid. Given her recent mitral valve surgery (repair), I believe it is prudent to continue with
antibiotic therapy as directed by my ID colleagues.
Please have patient follow-up with cardiac surgery in approximately 1 to 2 weeks.
Please call with any further questions or concerns.
Lele Fields MD
[phone]
[2024-02-09] MEDS: MELATONIN 5 MG PO (20:51)
[2024-02-09] MEDS: TYLENOL 650 MG PO (20:52)
[2024-02-10] VITALS (7 sets, daily range): BP systolic 98–117; BP diastolic 56–68; PULSE 60; BMI 22.0
[2024-02-10] MEDS: MAXIPIME 2000 MG IV ×2 (03:23→15:42)
[2024-02-10] MEDS: STERILE WATER FOR INJECTION 10 ML IV ×2 (03:23→15:43)
--- NOTE | 2024-02-10 09:01 | W.PN.HOSP.TC ---
Today's Communication/Plan
-
Discharge tomorrow
Assessment / Plan
Assessment / Plan
Sternotomy wound infection - likely surgical site infection. CT chest noted, moderate soft tissue edema anterior and posterior to the sternotomy without sternotomy dehiscence, sternal wire fracture, or acute osteomyelitis. Small crescent-shaped
fluid collection in the medial right pectoralis major muscle, unclear if infection versus aseptic seroma or edema. Wound cultures growing Pseudomonas and Enterobacter, blood cultures negative to date. ID recommends continuing cefepime x 6 weeks,
vancomycin stopped 02/07. No drainable right pectoral or subpectoral fluid collection was identified by IR via ultrasound 02/08. Cleared by ID for discharge, follow-up with ID in the office in 4-5 weeks.
Symptomatic right pleural effusion - after sternotomy and radical mitral valve repair with 30 mm band annuloplasty, left atrial appendage exclusion. Suspect postoperative effusion. CT chest completed, shows moderate size right pleural effusion with
adjacent compressive subsegmental atelectasis. Minimal left effusion. Status post right thoracentesis on 02/08/2024 draining 600 cc of clear jay fluid. Exudative, but not empyema. Follow-up pleural fluid culture, negative to date.
Constipation -increased laxatives
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 Mak[address] Appreciate [address] surgery attending, follow-up in the office in 1-2 weeks.
Atrial fibrillation/atypical atrial flutter -continue amiodarone, Eliquis.
Essential hypertension -stable.
Severe PAD -hide right lower extremity stenting.
Hyperlipidemia -on rosuvastatin.
History of breast cancer on the left -treated with left mastectomy and radiation 2020.
DVT prophylaxis�Eliquis
Full code
Total time spent to see the patient on the floor, examine the patient, review data and lab results, discuss treatment plan with patient, nursing staff around 36 minutes.
Physical Exam
General: No acute distress
HEENT: Normocephalic, Atraumatic, EOMI, MMM
Respiratory: Clear to Auscultation bilaterally
Cardiac: Normal S1/S2, Regular Rate and Rhythm
Chest Wall: Sternotomy wound with infection noted
GI: Soft, Nontender, Nondistended, Normal Bowel Sounds
Extremities: No Clubbing, Cyanosis, or Edema
Neuro: Nonfocal/Grossly Intact
Psych: Calm, Cooperative
Derm: No Visible lesions
Anticipated Discharge: Within 24 hours
Subjective/Interval History
-
Date of Service: February 10, 2024
Patient denies shortness of breath. Musculoskeletal chest pain continues to improve. No fever, no vomiting.
Objective Data
-
Vital Signs:
Vital Signs
Temp Pulse Resp BP Pulse Ox
98.3 F 66 20 117/64 100
02/10/24 07:25 02/10/24 07:25 02/10/24 07:25 02/10/24 07:25 02/10/24 07:25
I&O
02/09/24 02/10/24 02/11/24
06:59 06:59 06:59
Intake Total 1200 / 1200 1080 / 1080
Balance 1200 / 1200 1080 / 1080
[2024-02-10] MEDS: NEURONTIN PO ×3 (09:20→20:59)
[2024-02-10] MEDS: SENOKOT-S PO (09:20)
[2024-02-10] MEDS: LOW STRENGTH ASPIRIN 81 MG PO (09:21)
[2024-02-10] MEDS: CRESTOR 20 MG PO (09:21)
[2024-02-10] MEDS: TOPROL XL 25 MG PO (09:21)
[2024-02-10] MEDS: PROTONIX 40 MG PO (09:21)
[2024-02-10] MEDS: PACERONE 200 MG PO (09:21)
[2024-02-10] MEDS: MIRALAX PO (09:21)
[2024-02-10] MEDS: ELIQUIS 5 MG PO ×2 (09:22→20:59)
--- NOTE | 2024-02-10 09:30 | W.PN.UPDATE ---
Update Note
Progress Note Update
patient seen with Dr. Mak this AM. Continue current plan of care. Likely will be DC in 24-48 hours with PICC care and IV abx.
--- NOTE | 2024-02-10 12:33 | W.PN.ID1 ---
Date of Service
Date of Service: February 10, 2024
Today's Communication
- continue cefepime x6 weeks through 03/18/24
- follow up in my clinic in about 4-5 weeks
Assessment / Plan
Suspected Surgical Site Infection
Possible Underlying Osteomyelitis
R sided pleural effusion
- exudative effusion, unlikely empyema based on pH, glucose, no growth on culture
- surgical site culture pseudomonas and Enterobacter - sensitive to cefepime
- blood cultures x2 no growth to date
- CT chest: Moderate soft tissue edema anterior and posterior to the sternotomy not seen on US, no drainage needed
- QTc 446
- has picc
- continue cefepime x6 weeks through 03/18/24
- follow up in my clinic in about 4-5 weeks
Chief Complaint
-: Other (surgical site infection)
Subjective / Review of Systems
afebrile
US did not show fluid collection - no drainage needed
still with drainage from the midline sternal lesion - clear, not purulent
Vital Signs / Physical Exam
Vital Signs
Vital Signs
Temp Pulse Resp BP Pulse Ox
98.4 F 55 12 112/63 100
02/10/24 11:25 02/10/24 11:25 02/10/24 11:25 02/10/24 11:25 02/10/24 11:25
Physical Exam
Constitutional: No Acute Distress
Cardiovascular: Regular Rate and S1/S2; Negative Murmur or Rub
Pulmonary: Clear and Symmetric; Negative Wheezes or Rales
Gastrointestinal: Soft, Non Tender, Non Distended and Normal Bowel Sounds
Skin: Warm and Dry; Negative Rash or Jaundice
Wound: Other (still with drainage from the midline sternal lesion - clear, not purulent; tiny area of dehiscence, no probe to bone)
Objective Data
Lab Data
Lab Results
02/09/24 04:52
02/09/24 04:52
ESR 85 mm/hour (0-20) H 02/09/24 04:52
PT 21.6 Sec (11.4-14.6) H 02/05/24 20:14
INR 1.90 02/05/24 20:14
APTT 56.3 Sec (23.4-35.0) H 02/05/24 20:14
Estimated Creat Clear 74 ml/min 02/09/24 04:52
Total Bilirubin 0.6 mg/dl (0.2-1.3) 02/09/24 04:52
AST 34 U/L (14-36) 02/09/24 04:52
ALT 26 U/L (0-35) 02/09/24 04:52
Alkaline Phosphatase 78 U/L (38-126) 02/09/24 04:52
C-Reactive Protein 183.90 mg/L (0.0-10.00) H 02/09/24 04:52
Most recent labs reviewed
esr was 85.
Wound/abscess/other Cult Preliminary 02/10/24-34
Few Pseudomonas aeruginosa
Few Enterobacter cloacae
Organism 1 Pseudomonas aeruginosa
Organism 2 Enterobacter cloacae
P.AERU E.CLOACAE
M.I.C. RX M.I.C. RX
--------- --- --------- ---
Amoxicillin/Potas. Clavulanate >16/8 R
Ampicillin >16 R
Ampicillin/Sulbactam 16/8 R
Cefazolin >16 R
Cefepime <=2 S <=2 S
Ceftazidime <=1 S <=1 S
Ceftriaxone <=1 S
Ertapenem <=0.5 S
Ciprofloxacin <=0.25 S <=0.25 S
Gentamicin <=4 S
Levofloxacin <=0.5 S <=0.5 S
Meropenem <=1 S <=1 S
Piperacillin/Tazobactam <=16 S <=16 S
Tobramycin <=4 S <=4 S
Trimethoprim/Sulfamethoxazole <=2/38 S
Micro Results:
02/06/24 16:59 Wound Culture - Preliminary
Suture Site Pseudomonas aeruginosa
Enterobacter cloacae
Gram Stain - Preliminary
02/06/24 16:00 Blood Culture - Preliminary
Blood/Venous No Growth in 72 hours- Final report to follow
02/06/24 15:00 Blood Culture - Preliminary
Blood/Venous No Growth in 72 hours- Final report to follow
02/06/24 16:59 Anaerobic Culture - Preliminary
Suture Culture pending. Anaerobic cultures are examined after 3
days incubation. Additional information to follow.
02/08/24 11:16 Body Fluid Culture - Preliminary
Pleural Fluid No Growth After 18-24 Hours
Gram Stain - Preliminary
Care Review
Plan reviewed with: Physician (Dr Cary)
--- NOTE | 2024-02-10 15:50 | CM ---
Addendum entered by Bertha Harris 02/11/24 16:15:
[facility] cannot provide service in [place], [place]; Evie has decided to use [facility] at discharge. Referral sent via [facility].
Addendum entered by Bertha Harris 02/11/24 14:45:
Evie remembered that her home care services previously were with [facility] and would like to have the same RN come out to her home if possible. Referral sent to [facility] to request same.
Original Note:
CM met with Evie at bedside to discuss discharge to home with IV abx. Evie is agreeable to this plan. Rx and patient records faxed to [facility]. Case discussed with Lyly ([phone]) who anticipates the ability to provide services
to Evie, although benefits need to be reviewed. Lyly or another [facility] RN will come to do bedside teaching with Evie tomorrow during the day.
Evie shared with me that she lost her earlier this year, in August 2023. She had been scheduled to have a procedure the day he was buried, so she rescheduled the procedure. Her granddaughter lives with her, and she also has family
members who are going to come to stay with her while she is receiving care and healing.
Support provided to Evie who appreciated being able to speak with someone about her grief and loss a well as sharing her thoughts about her current illness and the pain she endured due to the infection.
Plan: Evie will return home with IV abx via [facility] and [facility] for additional support. Anticipated date for start of care will be 02/11/2024.
PCP: Jaja Delacruz
Pharmacy: [facility] in [address]
[2024-02-10] MEDS: MELATONIN PO (20:59)
[2024-02-10] MEDS: TYLENOL 650 MG PO (20:59)
[2024-02-10] MEDS: MIRALAX 17 GRAMS PO (21:00)
[2024-02-11 03:00] VITALS: BP 141/84
[2024-02-11] MEDS: STERILE WATER FOR INJECTION 10 ML IV ×2 (03:01→15:29)
[2024-02-11] MEDS: MAXIPIME 2000 MG IV ×2 (03:01→15:29)
[2024-02-11 05:45] VITALS: BMI 21.9
[2024-02-11 07:05] VITALS: BP 109/68
--- NOTE | 2024-02-11 08:52 | W.PN.HOSP.TC ---
Today's Communication/Plan
-
Discharge today
Assessment / Plan
Assessment / Plan
Sternotomy wound infection - likely surgical site infection. CT chest noted, moderate soft tissue edema anterior and posterior to the sternotomy without sternotomy dehiscence, sternal wire fracture, or acute osteomyelitis. Small crescent-shaped
fluid collection in the medial right pectoralis major muscle, unclear if infection versus aseptic seroma or edema. Wound cultures growing Pseudomonas and Enterobacter, blood cultures negative to date. ID recommends continuing cefepime x 6 weeks
through 03/18/24, vancomycin stopped 02/07. No drainable right pectoral or subpectoral fluid collection was identified by IR via ultrasound 02/08. Cleared by ID for discharge, follow-up with ID in the office in 4-5 weeks.
Symptomatic right pleural effusion - after sternotomy and radical mitral valve repair with 30 mm band annuloplasty, left atrial appendage exclusion. Suspect postoperative effusion. CT chest completed, shows moderate size right pleural effusion with
adjacent compressive subsegmental atelectasis. Minimal left effusion. Status post right thoracentesis on 02/08/2024 draining 600 cc of clear jay fluid. Exudative, but not empyema. Follow-up pleural fluid culture, negative to date.
Constipation -increased laxatives
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 Mak[address] Appreciate [address] surgery attending, follow-up in the office in 1-2 weeks.
Atrial fibrillation/atypical atrial flutter -continue amiodarone, Eliquis.
Essential hypertension -stable.
Severe PAD -hide right lower extremity stenting.
Hyperlipidemia -on rosuvastatin.
History of breast cancer on the left -treated with left mastectomy and radiation 2020.
DVT prophylaxis�Eliquis
Full code
Physical Exam
General: No acute distress
HEENT: Normocephalic, Atraumatic, EOMI, MMM
Respiratory: Clear to Auscultation bilaterally
Cardiac: Normal S1/S2, Regular Rate and Rhythm
Chest Wall: Sternotomy wound with infection noted
GI: Soft, Nontender, Nondistended, Normal Bowel Sounds
Extremities: No Clubbing, Cyanosis, or Edema
Neuro: Nonfocal/Grossly Intact
Psych: Calm, Cooperative
Derm: No Visible lesions
Anticipated Discharge: Today
Subjective/Interval History
-
Date of Service: February 11, 2024
Denies shortness of breath. Sternal pain continues to improve. No fever, no vomiting.
Objective Data
-
Vital Signs:
Vital Signs
Temp Pulse Resp BP Pulse Ox
97.9 F 72 16 109/68 100
02/11/24 07:05 02/11/24 07:05 02/11/24 07:05 02/11/24 07:05 02/11/24 07:05
I&O
02/10/24 02/11/24 02/12/24
06:59 06:59 06:59
Intake Total 1080 / 1080 420 / 420
Balance 1080 / 1080 420 / 420
[2024-02-11] MEDS: PROTONIX 40 MG PO (08:59)
[2024-02-11] MEDS: TOPROL XL 25 MG PO (09:00)
[2024-02-11] MEDS: CRESTOR 20 MG PO (09:00)
[2024-02-11] MEDS: LOW STRENGTH ASPIRIN 81 MG PO (09:00)
[2024-02-11] MEDS: ELIQUIS 5 MG PO (09:00)
[2024-02-11] MEDS: NEURONTIN PO ×3 (09:00→14:35)
[2024-02-11] MEDS: PACERONE 200 MG PO (09:00)
[2024-02-11 11:12] VITALS: BP 98/66
[2024-02-11 14:51] VITALS: BP 118/63
--- NOTE | 2024-02-11 15:04 | W.DCSUMMARY ---
Discharge Summary
Discharge Data
Date of Admission: 02/05/24
Date of Discharge: 02/11/24
-
Pending Results: No
Hospital Course
Discharge diagnosis:
Sternotomy surgical site infection
Possible underlying osteomyelitis
Right pleural effusion
Constipation
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
Paroxysmal atrial fibrillation/atypical atrial flutter on Eliquis
Benign essential hypertension
Severe peripheral artery disease
Hyperlipidemia
History of left breast cancer status postmastectomy
Consults: CT surgery, ID, IR
Chest CT:
1. Recent midline sternotomy, mitral valve repair, and left atrial appendage exclusion. Moderate soft tissue edema anterior and posterior to the sternotomy. No CT evidence for sternotomy dehiscence, sternal wire fracture, or acute osteomyelitis.
2. Small thin crescent-shaped fluid collection in the medial right pectoralis major muscle. Diagnostic possibilities are (1) a soft tissue abscess or (2) aseptic seroma and edema.
3. No CT evidence for fluid collection in the anterior mediastinum.
4. MODERATE-SIZED RIGHT PLEURAL EFFUSION with adjacent compressive subsegmental atelectasis.
5. Minimal left pleural effusion.
6. Mild cardiomegaly.
7. Moderate calcific atherosclerotic plaque in the thoracic aorta.
8. Multiple small sub-5 mm solid pulmonary nodules in the right middle and lower lobes.
9. 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
Procedures:
02/08/2024 right thoracentesis draining 600 cc of clear jay fluid, exudative
Hospital course:
78-year-old female with a past medical history of paroxysmal atrial fibrillation on Eliquis, myxomatous mitral valve status post repair on 12/21/2023, hypertension, peripheral artery disease, hyperlipidemia, and left breast cancer status post
mastectomy was admitted for a sternotomy surgical site infection. Patient reports having significant drainage and blood from her sternum incision site. Patient was seen in conjunction with ID, and treated with IV vancomycin and cefepime.
She had a chest CT, which showed a moderate size right pleural effusion with adjacent atelectasis. Patient had right thoracentesis on 02/08/2024 draining 600 cc of clear jay fluid. It is exudative, but not an empyema. CT also showed a small thin
crescent shaped fluid collection in the medial right pectoralis major muscle. Ultrasound evaluation of the medial right pectoralis major muscle did not show any abnormal fluid collection.
Wound cultures were obtained from her sternotomy incision site. Cultures grew out Pseudomonas and Enterobacter, both sensitive to cefepime. ID recommends treatment with cefepime for 6 weeks through 03/18/2024.
Patient was seen in conjunction with CT surgery, who recommends outpatient follow-up in the office.
Patient is medically stable and cleared by ID for discharge. She had a PICC inserted, and has been set up for outpatient cefepime through 03/18/2024. She needs to follow-up with her primary care doctor in 1 week, CT surgery in 1-2 weeks, and ID in
4-5 weeks.
Disposition: Home with home care
Discharge planning: Required 45 minutes
Discharge Plan
-
Patient Disposition: Home with Home Care
Discharge Diagnosis/Procedures: Suspected surgical site infection, possible underlying osteomyelitis, right pleural effusion, atrial fibrillation, myxomatous mitral valve status post surgery
Condition: Good
Diet: Low Fat and Low Cholesterol
Activity: As tolerated
Driving Restrictions: As prior to admission
Other Services: VN
Activity Restrictions/Additional Instructions:
Continue cefepime x6 weeks through 03/18/24.
Follow-up with your primary care doctor in 1 week, your surgeon in 1-2 weeks, and the infection doctor in 4-5 weeks.
Wound Care Instructions
Sternum: clean with soap and water, alginate, folded 2x2 gauze and paper tape, twice a day until drainage less, then can change daily.
Increase protein in diet to help with wound healing.
Referrals:
Jaja Delacruz MD [Family Provider] - in one week
Ani eVrnon MD [Active] - in four to six weeks
Autumn Mcmullen CRNP [Specified Professional Personl] - 02/24/24 1:00 pm
Prescriptions:
New
cefepime 2 gram Recon Soln
2,000 mg IV Q12H 37 Days Qty: 0 0RF
polyethylene glycol 3350 17 gram/dose powder
17 g PO DAILY PRN (Reason: constipation) Qty: 510 0RF
Continued
aspirin 81 mg Tablet,Chewable
81 mg PO DAILY
magnesium 200 mg Tablet
300 mg PO DAILY
rosuvastatin 20 mg Tablet
20 mg PO DAILY
[place] Plus Ultra
1 tab PO DAILY
Vitamin D3
1 tab PO DAILY
metoprolol succinate [Toprol XL] 25 mg tablet extended release 24 hr
25 mg PO DAILY Qty: 30 1RF
acetaminophen 325 mg Tablet
650 mg PO Q4HPRN PRN (Reason: mild pain,headache,temp >101F ) Qty: 0 0RF
pantoprazole 40 mg Tablet,Delayed Release (Dr/Ec)
40 mg PO DAILY Qty: 30 1RF
gabapentin 100 mg Capsule
100 mg PO TID Qty: 30 0RF
Eliquis 5 mg Tablet
5 mg PO BID Qty: 30 1RF
amiodarone 200 mg tablet
200 mg PO QDAY
Rx Instructions:
200mg BID x 2 weeks, then 200mg daily
Discharge Orders:
Discharge Patient (As Directed); Ordered 02/11/24
Ordered By: Basil Kiran
Discharge Date and Time
Discharge Date/Time: 02/11/24 16:56
Print Language: CHINESE
--- NOTE | 2024-02-11 17:02 | W.PN.ID1 ---
Date of Service
Date of Service: February 11, 2024
Today's Communication
- continue cefepime x6 weeks through 03/18/24
- follow up in my clinic in about 4-5 weeks
Assessment / Plan
Suspected Surgical Site Infection
Possible Underlying Osteomyelitis
R sided pleural effusion
- surgical site culture pseudomonas and Enterobacter - sensitive to cefepime
- blood cultures x2 no growth to date
- CT chest: Moderate soft tissue edema anterior and posterior to the sternotomy not seen on US, no drainage needed
- QTc 446
- has picc
- continue cefepime x6 weeks through 03/18/24
- follow up in my clinic in about 4-5 weeks
Chief Complaint
-: Other (surgical site infection)
Subjective / Review of Systems
afebrile
tiny drop of drainage from the sternal wound
no compliants
Vital Signs / Physical Exam
Vital Signs
Vital Signs
Temp Pulse Resp BP Pulse Ox
97.9 F 59 16 118/63 95
02/11/24 14:51 02/11/24 14:51 02/11/24 14:51 02/11/24 14:51 02/11/24 14:51
Physical Exam
Constitutional: No Acute Distress
Cardiovascular: Regular Rate and S1/S2; Negative Murmur or Rub
Pulmonary: Clear and Symmetric; Negative Wheezes or Rales
Gastrointestinal: Soft, Non Tender, Non Distended and Normal Bowel Sounds
Skin: Warm and Dry; Negative Rash or Jaundice
Wound: Other (single clear drop of drainage from the midline sternal lesion - not purulent; tiny area of dehiscence, no probe to bone)
Objective Data
Lab Data
Lab Results
02/09/24 04:52
02/09/24 04:52
ESR 85 mm/hour (0-20) H 02/09/24 04:52
PT 21.6 Sec (11.4-14.6) H 02/05/24 20:14
INR 1.90 02/05/24 20:14
APTT 56.3 Sec (23.4-35.0) H 02/05/24 20:14
Estimated Creat Clear 74 ml/min 02/09/24 04:52
Total Bilirubin 0.6 mg/dl (0.2-1.3) 02/09/24 04:52
AST 34 U/L (14-36) 02/09/24 04:52
ALT 26 U/L (0-35) 02/09/24 04:52
Alkaline Phosphatase 78 U/L (38-126) 02/09/24 04:52
C-Reactive Protein 183.90 mg/L (0.0-10.00) H 02/09/24 04:52
Most recent labs reviewed.
Micro Results:
02/06/24 16:00 Blood Culture - Final
Blood/Venous No Growth - Final Report
02/06/24 15:00 Blood Culture - Final
Blood/Venous No Growth - Final Report
02/06/24 16:59 Wound Culture - Preliminary
Suture Site Pseudomonas aeruginosa
Enterobacter cloacae
Gram Stain - Preliminary
02/06/24 16:59 Anaerobic Culture - Preliminary
Suture Culture pending. Anaerobic cultures are examined after 3
days incubation. Additional information to follow.
02/08/24 11:16 Body Fluid Culture - Final
Pleural Fluid No Growth After 72 Hours
Gram Stain - Final
--- NOTE | 2024-02-12 11:34 | CM ---
Call received from Elsy at [facility] stating that they received discharge instructions but need a referral sent to them. Based on notes referral sent to [facility] since patient lives outside of [facility]'s service area. Call placed to
[facility] who stated that they are unable to see patient this week-end and did not accept patient. Call back to Elsy from [facility] , made her aware that [facility] is unable to accept patient , Elsy stated they can accept patient,
Elsy made aware referral sent to [facility] via [employer]. Elsy stated they will reach out to speak to patient today.
== END 2024-02-11 16:56 | disposition home health service (06) | DRG 863 ==
LOC: 4 EAST ACU 21:24
PROVIDERS: Physician Assistant Medical; Radiology Diagnostic Radiology; ADMITTING PHYSICIAN Hospitalist; ATTENDING PHYSICIAN Family Medicine; CONSULT PHYSICIAN Student in an Organized Health Care Education/Training Program; CONSULT PHYSICIAN Thoracic Surgery (Cardiothoracic Vascular Surgery); EMERGENCY PHYSICIAN Student in an Organized Health Care Education/Training Program; FAMILY PHYSICIAN Family Medicine
PROC: 02HV33Z Insertion of Infusion Device into Superior Vena Cava, Percutaneous Approach (ICD-10-PCS; 2024-02-08)
PROC: 0W993ZZ Drainage of Right Pleural Cavity, Percutaneous Approach (ICD-10-PCS; 2024-02-08)
DX: T81.49XA Infection following a procedure, other surgical site, initial encounter (principal); J90 Pleural effusion, not elsewhere classified; I48.4 Atypical atrial flutter; J98.11 Atelectasis; M86.9 Osteomyelitis, unspecified; B96.5 Pseudomonas (aeruginosa) (mallei) (pseudomallei) as the cause of diseases classified elsewhere; B96.89 Other specified bacterial agents as the cause of diseases classified elsewhere; Y84.8 Other medical procedures as the cause of abnormal reaction of the patient, or of later complication, without mention of misadventure at the time of the procedure; Y92.9 Unspecified place or not applicable; M25.511 Pain in right shoulder; E78.00 Pure hypercholesterolemia, unspecified; I73.9 Peripheral vascular disease, unspecified; R73.03 Prediabetes; I48.0 Paroxysmal atrial fibrillation; K59.00 Constipation, unspecified; I10 Essential (primary) hypertension; I25.10 Atherosclerotic heart disease of native coronary artery without angina pectoris; Z85.3 Personal history of malignant neoplasm of breast; Z95.2 Presence of prosthetic heart valve; Z92.3 Personal history of irradiation; Z90.12 Acquired absence of left breast and nipple; Z95.820 Peripheral vascular angioplasty status with implants and grafts; Z79.01 Long term (current) use of anticoagulants; Z79.82 Long term (current) use of aspirin; Z92.21 Personal history of antineoplastic chemotherapy
CPT/HCPCS: 88305; 32555; 71045; 71046; 71250; 76604; 80048; 80053; 82150; 82945; 83615; 83735; 83986; 84155; 84157; 84478; 85025; 85027; 85610; 85652; 85730; 86140; 87015; 87040; 87070; 87075; 87077; 87147; 87186; 87205; 88112; 89051; 93005; 96374; 97116; 97162; 99285

== ENCOUNTER 2024-03-11 15:55 | Inpatient (IN) | payer OTHER, SELFPAY ==
[2024-03-11] VITALS (14 sets, daily range): BP systolic 126–194; BP diastolic 58–110; BMI 22.8
--- NOTE | 2024-03-11 12:25 | ED.GENMED ---
History of Present Illness
General
Chief Complaint: Cardiac Symptoms
Time Seen by Provider: 03/11/24 12:04
History of Present Illness
History of Present Illness:
78-year-old female with history of mitral valve degeneration with insufficiency and resultant MVR/left atrial appendage clipping in December 2023 presents to the emergency department for evaluation of chest tightness that began upon awakening today but
has since Subsided. She has had chest tightness in the past after her mastectomy but denies any similarity to recurrent symptoms. She was reports dizziness ongoing for the past 3 weeks, dizziness appears to be worse after periods of exertion,
described as near syncope. Denies any complete syncope or any vertigo symptoms.
Of note she was admitted to the hospital here in late January due to a sternotomy surgical site infection with possible underlying osteomyelitis and a right pleural effusion, underwent inpatient thoracentesis and is on continued antibiotics via PICC
line for 1 more week. She has been compliant with her blood thinners
Review of Systems
Review of Systems
Allergies reviewed?: Yes
All Other Systems: ROS reviewed and negative except as documented in HPI and ROS
Phy Exam
Physical Exam
Physical Exam:
GEN: Well appearing, NAD, WDWN
Eyes: PERRLA, EOMs intact, no scleral icterus
HENT: NCAT, oral mucosa moist, no JVD
Lungs: CTAB, no wheezes, rales, rhonchi, normal chest wall excursion
Chest: Midline sternotomy is well-approximated with mild erythema to the superior aspect, no wound dehiscence
Cardiac: RRR, no M/R/G, no peripheral edema. Radial pulses 2+ bilat
Abdomen: S, NT, ND, NABS, no masses or hepatosplenomegaly
Neuro: AO x 3, cranial nerves II through XII grossly intact, moves all extremities freely
MSK: No gross deformity or ecchymosis. No edema. No digital clubbing
Skin: No rashes, petechiae. Normal color, no pallor or jaundice.
Psych: Calm, cooperative, proper hygiene
Course
Orders/Labs/Results
Orders:
Orders
03/11/24 11:30
ECG [Electrocardiogram (*1)] Urgent
Reason for Study: Chest Pain
EKG- Treatment ONCE
03/11/24 11:52
CXR Port [CR Chest Portable - 1 View] Urgent
Comment:
Reason For Exam: verify PICC placement
Reason Study Needs to be Portable: Other
03/11/24 12:28
Comprehensive Metabolic Panel Urgent
PTT Urgent
Prothrombin Time Urgent
03/11/24 12:29
Complete Blood Count/With Diff Urgent
NT-proBNP Urgent
Troponin I Urgent
03/11/24 Dinner
Regular
At Your Request: Full Participation
03/11/24 15:40
CARDIOLOGY CONSULT Routine
Consulting Provider: Timoteo Agudelo
Was physician already notified: Yes
Reason for consult: pauses
03/11/24 15:41
Admit/Transfer Patient As Directed
Co-Sign Provider:
Level of Care: Inpatient admission
Assign to:: IVU
Physician / Group: Hospitalist
Diagnosis: Pre Syncope
Reason for Hospitalization: Pre Syncope, pauses
Expected length of stay greater than two midnights?: Yes
ELOS- Estimated Length of Stay in days: 2
I certify the patient meets the requirements for IP care: Yes
PRN Pain Medication Management As Directed
May give lesser potent ordered pain med per pt: Yes
preference::
Protocol:: Medication orders for pain may be administered in a
manner that supports deferring to patient preference
when the pt is:
- Requesting an ordered lesser potent pain medication.
Least to most potent pain medications are defined
as: acetaminophen < NSAID < tramadol < opioids
(morphine, oxycodone, hydromorphone).
- Requesting a lesser dose of the same medication IF
ORDERED.
- Requesting a less intrusive route of administration
if both routes are prescribed by the provider (PO <
IV).
03/11/24 15:42
Code Status As Directed
Resuscitation Status: Full Code
03/11/24 15:46
Consult Infectious Disease [INFECTIOUS DISEASE CONSULT] Routine
Consulting Provider: Josseline Mejias
Was physician already notified: Yes
03/11/24 18:24
Troponin I Q6H
Acetaminophen [Tylenol] 650 mg PO Q4HPRN PRN
Bisacodyl [Dulcolax] 10 mg RECTAL [id number] PRN
Docusate W/Senna [Senokot-S] 1 tablet PO BIDPRN PRN
Polyethylene Glycol 3350 [Gavilax] 17 gm PO DAILYPRN PRN
Polyethylene Glycol Powder [Miralax] 17 grams PO DAILYPRN PRN
03/11/24 18:24
Lyme Progressive Routine
Activity As Directed
Activity Level: Bedrest
Pneumatic Compression Sleeves As Directed
Type: Knee high
Vital Signs As Directed
Frequency: Per unit guidelines
DX Deep Vein Thrombosis Video Routine
03/11/24 20:00
Cefepime HCl [Maxipime] 2,000 mg IV Q12H
03/12/24 00:24
Troponin I Q6H
03/12/24 06:00
Basic Metabolic Panel IN AM
Complete Blood Count/No Diff IN AM
TSH IN AM
Vitamin B12 IN AM
03/12/24 06:24
Troponin I Q6H
03/12/24 08:00
Aspirin Chewable [Low Strength Aspirin] 81 mg PO DAILY
Cholecalciferol (Vitamin D3) [VITAMIN D3 (cholecalciferol)] 25 mcg PO DAILY
Furosemide [Lasix] 20 mg PO DAILY
Pantoprazole [Protonix] 40 mg PO DAILY
Rosuvastatin Calcium [Crestor] 20 mg PO DAILY
magnesium 300 mg PO DAILY
Abnormal Lab Results
03/11/24 03/11/24
12:28 12:29
WBC 4.3 L 10^3/uL
(4.8-10.8)
RBC 3.82 L 10^6/uL
(4.20-5.40)
Hgb 10.9 L g/dL
(12.0-16.0)
Hct 32.8 L %
(37.0-47.0)
RDW 18.0 H %
(11.5-14.5)
Absolute Lymphs (auto) 0.9 L 10^3/uL
(1.2-3.4)
Monocytes % 12.7 H %
(1.7-9.3)
PT 16.6 H Sec
(11.4-14.6)
Carbon Dioxide 31 H mmol/L
(22-30)
AST 66 H U/L
(14-36)
ALT 107 H U/L
(0-35)
Alkaline Phosphatase 144 H U/L
(38-126)
03/11/24 12:29
03/11/24 12:28
Vital Signs
Initial and Last Documented VS:
Initial Vital Signs
Temp Pulse Resp BP Pulse Ox
98.3 F 76 20 159/110 99
03/11/24 11:28 03/11/24 11:28 03/11/24 11:28 03/11/24 11:28 03/11/24 11:28
Last Documented Vital Signs
Temp Pulse Resp BP Pulse Ox
98.3 F 54 17 170/71 100
03/11/24 11:28 03/11/24 18:19 03/11/24 17:30 03/11/24 17:00 03/11/24 17:30
MDM/Problems Addressed
MDM/Problems Addressed:
Patient noted to have several sinus pauses on telemetry correlating with her bouts of dizziness. In all likelihood she will require permanent pacemaker placement. Will be admitted to the hospitalist service for cardiology consultation and further
workup
Comment
Comment:
EKG independently interpreted by me shows normal sinus rhythm at a rate of 76 with a first-degree AV block, no ischemic changes
*Critical Care Note
Total Time (30-74mins, 75-104mins- exclusive of procedures): Not Applicable
Update Note
Update Note:
1350: Pt reporting recurrent near syncope, correlating w/ 3-4 second sinus pause on telemetry.
ED Attending Note
-
Portions of this chart may have been created with voice recognition software.� Occasional wrong word or��sound alike� substitutions may have occurred due to the inherent limitations of voice recognition software.
Discharge Plan
Departure
Patient Disposition: Admit
Date of Disposition: 03/11/24
Time of Disposition: 14:08
Admit to: IVU
Presentation/result/management discussed w/ accepting MD/DO: Hospitalist
Discharge Problem:
Sinus pause, Near syncope
Interventions
Interventions:
*Risk Screen - Suicide Last Done: 03/11/24 11:28
*General Assessment Last Done: 03/11/24 11:28
*Neglect/Abuse Screening Last Done: 03/11/24 11:28
*ED COVID-19 Vaccine History Last Done: 03/11/24 18:30
*Nursing Disposition Last Done: 03/11/24 18:24
ED- Pulmonary Assessment Last Done: 03/11/24 11:46
ED- Cardiac Assessment Last Done: 03/11/24 11:46
Discharge Date and Time
Discharge Date/Time: 03/11/24 18:25
[2024-03-11 12:39] LABS: % Basophils 1.2 % (0-2); % Eosinophils 0.7 % (0-6); % Immature Granulocytes 0.2 % (0-0.5); % Lymphocytes 21.7 % (20.5-51.1); % Monocytes 12.7 % (1.7-9.3); % Neutrophils 63.5 % (42.2-75.2); Absolute Basophils 0.1 10^3/uL (0-0.2); Absolute Lymphocytes 0.9 10^3/uL (1.2-3.4); Absolute Monocytes 0.6 10^3/uL (0.1-0.6); Absolute Neutrophils 2.8 10^3/uL (1.4-6.5); Hematocrit 32.8 % (37.0-47.0); Hemoglobin 10.9 g/dL (12.0-16.0); Mean Corp Hgb Conc. 33.2 g/dL (33.0-37.0); Mean Corpuscular Hgb 28.5 pg (27.0-31.0); Mean Corpuscular Volume 85.9 fL (81.0-99.0); Mean Platelet Volume 9.7 fL (7.4-10.4); Nucleated Red Blood Cells % 0 %; Platelet Count 177 10^3/uL (130-400); Red Blood Cell Count 3.82 10^6/uL (4.20-5.40); White Blood Cell Count 4.3 10^3/uL (4.8-10.8)
[2024-03-11 12:53] LABS: INR 1.36; PT 16.6 Sec (11.4-14.6)
[2024-03-11 12:54] LABS: ALT (SGPT) 107 U/L (0-35); APTT 33.3 Sec (23.4-35.0); AST (SGOT) 66 U/L (14-36); Albumin 3.8 g/dl (3.5-5.0); Alkaline Phosphatase 144 U/L (38-126); Blood Urea Nitrogen 17 mg/dl (7-17); Calcium 9.5 mg/dl (8.4-10.2); Carbon Dioxide 31 mmol/L (22-30); Chloride 105 mmol/L (98-107); Estimated Creatinine Clearance 63 ml/min; Glucose 95 mg/dl (70-99); Sodium 144 mmol/L (135-145); Total Protein 6.5 g/dl (6.3-8.2); eGFR > 60.00
[2024-03-11 13:03] LABS: NT-proBNP 1730 pg/ml; Troponin I 0.016 ng/ml
--- NOTE | 2024-03-11 14:46 | CON.CAR ---
Addendum entered and electronically signed by Timoteo Agudelo MD 03/11/24 16:58:
Patient had additional discussion with Dr. Bettencourt/EP and did not want to proceed with pacemaker today.
-Will continue to monitor off metoprolol
-Will continue to observe for recurrent chest discomfort. Likelihood of chest discomfort related to angina should be low based on her most recent catheterization. Possible could be musculoskeletal in origin. Will monitor serial troponins.
-Continue antibiotics as directed by ID
-Plan for pacemaker later this hospitalization if patient agreeable
Addendum entered and electronically signed by Timoteo Agudelo MD 03/11/24 16:31:
I saw and examined the patient.
The VAULT MAKER's note was reviewed and I agree with the note.
78-year-old woman who underwent mitral valve repair and left atrial appendage clip 12/21/[address] Mak during that hospitalization she had atrial flutter with evidence of sick sinus syndrome and some long conversion pauses. Patient was discharged
on amiodarone and also was on low-dose beta-jeanne and had some additional outpatient monitoring. She was readmitted to the hospital with sternal wound infection. No bacteremia. Patient was treated with antibiotics and has been followed by ID.
She has remained afebrile for greater than 4 weeks. She has continued to have episodes of lightheadedness or dizziness that are brief and feeling a wave coming over her head. She described these to Dr. Mak and amiodarone was discontinued over 2
weeks ago. She has remained on low-dose beta-jeanne she is continued to have episodes that mostly occur in the morning. Yesterday evening she felt tired and weak after her beta-jeanne and today she has had some additional lightheadedness. In
addition she had a brief episode of chest discomfort. She has some chronic chest discomfort which she states she has had since her mastectomy where she massages her chest and it goes away it seems to go away today after massage but she was unclear
if it was a little different. Episode was quite brief and lasted a minute or so. Pain-free and troponin unremarkable. ECG without ischemic changes. Of note she has no history of obstructive coronary artery disease her preprocedure cardiac
catheterization had mild nonobstructive disease including 20% LAD and 30% ostial small ramus. While while in the ER she felt one of the waves of dizziness and it was associated with a 3.8-second pause. Based on prior history of sick sinus syndrome
and recurrent episodes of dizziness with a recorded symptomatic episode associated with a sinus pause it appears patient would benefit from ventricular pacing. Issues reviewed with EP in edition ID was consulted and felt that at this point patient
would be cleared from an ID standpoint to undergo pacemaker.
-Continue to hold metoprolol
-Monitor on telemetry
-Reviewed with Dr. Bettencourt who will assess patient and determine timing of pacemaker.
-In the meantime we will monitor for any recurrent symptoms, recurrent arrhythmias or development of recurrent atrial flutter.
-Will continue to hold anticoagulation. Last dose of Eliquis in the evening of 03/10/2024
Original Note:
Consultation
Consultation Request
Date/Time Consultation Requested: 03/11/24 1400
Date/Time Consultation Performed: 03/11/24 1500
Requesting Provider: Nikolay Carpenter PA-C
Performing Provider: Mireya TROY for Dr. Agudelo
Reason for Consultation: pauses on monitor, symptomatic
Medical History
-
Chief Complaint: waves of dizziness, feeling of chest tightness
History of Present Illness:
78 y/o female with mitral regurgitation s/p MV repair with DANNA clip 12/21/23 (Dr. Mak), AFIB/flutter, HTN, HLD, PAD with hx stenting, and breast cancer s/p chemo/radiation/mastectomy. She is here for evaluation waves of light-headedness. She had one
in the ER, which was associated with 3.85 second pause. Denies any syncope. Currently in SR with 1st degree AVB. Of note, post-op, she had evidence for sinus node dysfunction- OP monitor showed atrial flutter. At recent OV with Dr. Mak 02/24/24 and
amiodarone was stopped and metoprolol was decreased. Importantly, earlier this month she was noted to have evidence for surgical site infection and osteomyelitis and remains on IV antibiotics. She is in no distress at the time of my assessment. She
also had some chest tightness this AM, but it resolved with massage. She has had chest tightness after mastectomy.
Past Medical History
Past Medical History: Arrhythmias, Cancer, HTN and Hypercholesterolemia
Social History
Tobacco: Non-Smoker
Personal:
Family History
Family History: Reviewed & Not Pertinent
Allergies / Home Medications
Allergy/AdvReac Type Severity Reaction Status Date / Time
No Known Allergies Allergy Verified 03/11/24 11:28
�Medication �Instructions �Recorded �Confirmed �Type
[place] Plus Ultra 1 tab PO DAILY Supplement 11/25/23 03/11/24 History
aspirin 81 mg chewable tablet 81 mg PO DAILY Blood Clot 11/25/23 03/11/24 History
Prevention/Tx
cholecalciferol (vitamin D3) 25 25 mcg PO DAILY Supplement ##0 11/25/23 03/11/24 History
mcg (1,000 unit) tablet (Vitamin
D3)
magnesium 200 mg tablet 300 mg PO DAILY Electrolyte 11/25/23 03/11/24 History
Repletion
rosuvastatin 20 mg tablet 20 mg PO DAILY High Cholesterol 11/25/23 03/11/24 History
acetaminophen 325 mg tablet 650 mg (2 x 325 mg) PO Q4HPRN PRN 12/28/23 03/11/24 Rx
mild pain,headache,temp >101F #0
tabs
apixaban 5 mg tablet (Eliquis) 5 mg PO BID Blood clot 12/28/23 03/11/24 Rx
prevention/tx #30 tabs
pantoprazole 40 mg tablet,delayed 40 mg PO DAILY GI prophylaxis 12/28/23 03/11/24 Rx
release while on Eliquis #30 tabs
cefepime 2 gram solution for 2,000 mg IV Q12H 37 days #0 ea 02/11/24 03/11/24 Rx
injection
eucalyptus-menthol oral mucosal 3.1 mg mucous membrane BIDPRN PRN 03/11/24 03/11/24 History
lozenge cough
furosemide 20 mg tablet (Lasix) 20 mg PO DAILY 03/11/24 03/11/24 History
metoprolol succinate 25 mg 12.5 mg PO QPM Heart 03/11/24 03/11/24 History
tablet,extended release 24 hr disease/condition
(Toprol XL)
polyethylene glycol 3350 17 17 g PO DAILYPRN PRN constipation 03/11/24 03/11/24 History
gram/dose oral powder
Review of Systems
-
History Source: Patient
All other systems: Negative unless noted
Cardiac: Chest Pain (tightness, resolves with massage)
Neurological: Dizzy (waves)
Physical Exam
Vital Signs
Temp Pulse Resp BP Pulse Ox
98.3 F 70 16 175/67 98
03/11/24 11:28 03/11/24 13:51 03/11/24 13:51 03/11/24 13:51 03/11/24 13:51
Lab Results
03/11/24 12:29
03/11/24 12:28
Troponin I 0.016 ng/ml 03/11/24 12:29
Msh-X-Ilhztbrilxh Pept 1730 pg/ml 03/11/24 12:29
Physical Exam
General: Well Developed, Well Nourished and No Apparent Distress
HEENT: Normocephalic and Anicteric
Respiratory: Clear and Non Labored Respirations
Cardiac: Regular Rhythm
Musculoskeletal: No Edema
Skin: Warm and Dry
Neuro: AO x 3
Psych: Calm
Impression / Plan
-
Sinus node dysfunction:
-noted post-op, and now patient seems to be having symptomatic pauses- she will likely require pacemaker, but timing TBD as she is being treated for infection as noted. Will consult ID.
-SR with 1st degree AVB on EKG
-stop metoprolol, follow telemetry
s/p MV repair:
-CT surgery has been updated on situation
Aflutter( atypical)/AFIB (paroxysmal):
-on Eliquis, last dose last night
-in SR as above
-BB to be stopped
HTN:
-monitor
-will likely need to add back on some antihypertensives this admit (was on meds prior to surgery)
Data Reviewed
-
EKG: Tracing Personally Visualized and interpreted (SR with 1st degree AVB)
Radiology: Report Reviewed by me (CXR: Cardiomegaly is unchanged. Mediastinal silhouette within normal limits. Pulmonary vasculature within normal limits.)
Medical Tests (Nuc Med, Echo etc): Report Reviewed by me (12/23/23: Normal biventricular size and systolic function without regional wall motion abnormality. Mild concentric left ventricular hypertrophy. s/p Mitral valve repair. Mean gradient is
4mmHg. Trace mitral regurgitation.)
Labs: Labs Reviewed by me
--- NOTE | 2024-03-11 14:51 | HPS.HSE ---
Addendum entered and electronically signed by Loki Walls MD 03/11/24 17:17:
Discussed with cardiology. Patient wants to hold off on pacemaker therefore cardiology okay to restart Eliquis tonight. Which is restarted.
Elevated LFTs noted-will obtain an ultrasound.
Original Note:
Family Physician
-
Family Physician: Angela Delacruz MD
Chief Complaint
-
Dizziness
History of Present Illness
78-year-old female had a MVR/left atrial appendage clipping December 2023 presented with chest tightness and dizziness for past 2 weeks. patient was here in January for a sternotomy site infection with possible osteomyelitis and right pleural effusion
underwent thoracentesis and on antibiotic through PICC line for 1 more week. She stated that she had seen Dr. Lopes in the office and was taken off of amiodarone after last admission here. She continued to have dizziness. Also an uncomfortable
feeling in the chest when this happens.
Medical History
Past Medical History
Past Medical History: Reports Other
Additional Past Medical History:
Lung nodule, hypertension, hyperlipidemia, arthritis, history of left breast cancer, hyperlipidemia
Past Surgical History: Reports Other
Additional Past Surgical History:
Left mastectomy 2020, hysterectomy, cataract left eye, cardiac cath and PARAS 2003, MVR December 2023, anemia
Social History
Tobacco: Non-smoker
Alcohol: None
Drug: None
Family History
Family History: Hypertension (both parents) and Other (father with CVA)
Allergies / Home Medications
Allergies reflects when Allergies were last updated in [facility].
Home Medications with original date entered in [facility]
Allergy/Medication List:
Allergies
Allergy/AdvReac Type Severity Reaction Status Date / Time
No Known Allergies Allergy Verified 03/11/24 11:28
Home Medications
[place] Plus Ultra 1 tab PO DAILY Supplement 11/25/23
aspirin 81 mg chewable tablet 81 mg PO DAILY Blood Clot Prevention/Tx 11/25/23
cholecalciferol (vitamin D3) 25 mcg (1,000 unit) tablet (Vitamin D3) 25 mcg PO DAILY Supplement ##0 11/25/23
magnesium 200 mg tablet 300 mg PO DAILY Electrolyte Repletion 11/25/23
rosuvastatin 20 mg tablet 20 mg PO DAILY High Cholesterol 11/25/23
acetaminophen 325 mg tablet 650 mg (2 x 325 mg) PO Q4HPRN PRN mild pain,headache,temp >101F #0 tabs 12/28/23
apixaban 5 mg tablet (Eliquis) 5 mg PO BID Blood clot prevention/tx #30 tabs 12/28/23
pantoprazole 40 mg tablet,delayed release 40 mg PO DAILY GI prophylaxis while on Eliquis #30 tabs 12/28/23
cefepime 2 gram solution for injection 2,000 mg IV Q12H 37 days #0 ea 02/11/24
eucalyptus-menthol oral mucosal lozenge 3.1 mg mucous membrane BIDPRN PRN cough 03/11/24
furosemide 20 mg tablet (Lasix) 20 mg PO DAILY 03/11/24
metoprolol succinate 25 mg tablet,extended release 24 hr (Toprol XL) 12.5 mg PO QPM Heart disease/condition 03/11/24
polyethylene glycol 3350 17 gram/dose oral powder 17 g PO DAILYPRN PRN constipation 03/11/24
Review of Systems
-
A 12 point ROS was completed and negative except as noted: Yes
Respiratory: Denies Trouble Breathing
Cardiac: Denies Chest Pain
Skin: Reports Other (Patient states that there is a skin pinhole wound in the epigastric area sometimes she can see a discharge. I could not elicit anything today.)
Physical Exam
Vital Signs
Vital Signs
Temp Pulse Resp BP Pulse Ox
98.3 F 71 18 172/76 100
03/11/24 11:28 03/11/24 14:45 03/11/24 14:45 03/11/24 14:00 03/11/24 14:45
Physical Exam
General: Comfortable and Conversant
Respiratory: Clear
Cardiac: S1/S2 and Regular Rhythm
GI: Soft, Non Tender and Normal Bowel Sounds
Skin: Warm and Other (Sternotomy area with no open wounds)
Neuro: AO x 3 and Nonfocal/grossly intact
Psych: Intact Judgment/Insight
Laboratory Results
-
03/11/24 12:29
03/11/24 12:28
Laboratory Results
PT 16.6 Sec (11.4-14.6) H 03/11/24 12:28
INR 1.36 03/11/24 12:28
APTT 33.3 Sec (23.4-35.0) 03/11/24 12:28
Total Bilirubin 1.0 mg/dl (0.2-1.3) 03/11/24 12:28
AST 66 U/L (14-36) H 03/11/24 12:28
ALT 107 U/L (0-35) H 03/11/24 12:28
Alkaline Phosphatase 144 U/L (38-126) H 03/11/24 12:28
Troponin I 0.016 ng/ml 03/11/24 12:29
Data Reviewed
-
Diagnostic Radiology: Image Personally Visualized and interpreted (Chest x-ray-right upper extremity PICC line, cardiomegaly, no infiltrates)
Impression/Plan
-
IMPRESSION:
78-year-old female underwent mitral valve repair and left atrial exclusion on 12/21/[address] Mak. She had complete heart block postoperatively requiring temporary pacing. She also developed atrial fibrillation and was discharged on Eliquis,
Toprol and amiodarone. She was readmitted with right pleural effusion and also sternal osteomyelitis was discharged on IV cefepime through 03/18/2024. Patient comes back because of dizziness and near syncope.
# Near syncope with pauses on heart rhythm
Patient had complete heart block postoperatively requiring temporary pacing.
Admit to IVU
May need pacemaker
Hold beta-blockers
Cardiology evaluation
Check troponin to rule out ischemia
Hold Eliquis unless cardiology wants to continue
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
# Sternal osteomyelitis-on IV antibiotics-cefepime
wound cultures grew Pseudomonas and Enterobacter
Complete the course through 03/18/2024
# Right pleural effusion-recent admission
# Atrial flutter-hold Eliquis. Hold metoprolol. Amiodarone was discontinued with a postop follow-up with Dr. Mak. Watch on the monitor
# Hyperlipidemia-continue statin
# History of left breast cancer with history of mastectomy
# DVT prophylaxis-Eliquis to be held for the procedure if needed
# Full code
Discussed with patient's sister and patient's granddaughter at bedside
--- NOTE | 2024-03-11 15:56 | CON.ID ---
Consultation
-
Date/Time Consultation Requested: March 11, 2024 1546
Date/Time Consultation Performed: March 11, 2024 1600
Requesting Provider: WOODROW Meyers
Performing Provider: Dr. Josseline Mejias
Reason for Consultation: Need ID clearance for urgent PPM placment.
Chief Complaint / Past History
Chief Complaint
Dizziness
History of Present Illness
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
surgical site infection and possible underlying osteomyelitis. CT chest: Moderate soft tissue edema anterior and posterior to the sternotomy. Wound cx + Pseudomonas and Enterobacter. She was seen by ID. Dr. Vernon who recommended cefepime 2g IV
q12h x 6 weeks through 03/18/2024. She presented to ED today due to 2 to 3 weeks of dizziness. c/o of chest discomfort during dizziness episodes. She felt like she was going to pass out. No palpitations. No fevers or chills. Pt noted to sinus pauses.
Of note her cardiac surgery was complicated by post-op sinus dysfunction managed by amiodarone. The amiodarone was discontinued several weeks ago. She is tolerating the cefepime without N/V/diarrhea. She is concerned about a small wound below
her right breast with some drainage.
Past History
Additional Past Medical History:
Mitral Valve Regurgitation s/p Mitral Valve Repair on December 21, 2023
Post-Op Atrial Fibrillation
Peripheral Artery Disease s/p RLE Stents
Essential Hypertension
Hyperlipidemia
Breast Cancer s/p Left Mastectomy and Chemo/Radiation
lung nodule
Additional Past Surgical History:
Mitral Valve Repair
Left Atrial Appendage Exclusion
Left Mastectomy 2020
Allergy History:
No Known Allergies Allergy (Verified 03/11/24 11:28)
Medications Reviewed: Yes
Current Antibiotics:
cefepime 2g IV q12h
Social History
Tobacco: Non-Smoker
Alcohol: None
Drug: None
Living: With Family
Family History
Family History: Not Pertinent
Review of Systems
Review of Systems
General: Negative Fever, Chills or Change in Appetite
HEENT: Negative Sinus Problems, Headache or Pharyngitis
Respiratory: Negative Dyspnea or Cough
Gasteroenterology: Other (no diarrhea); Negative Nausea or Vomiting
Genital / Urological: Negative Dysuria or Flank Pain
Neurological: Dizziness
All systems: All other systems were reviewed and were negative
Vital Signs
Temp Pulse Resp BP Pulse Ox
98.3 F 71 18 172/76 100
03/11/24 11:28 03/11/24 14:45 03/11/24 14:45 03/11/24 14:00 03/11/24 14:45
Physical Exam
Physical Exam
Constitutional: No Acute Distress and Comfortable
Eyes: No Conjunctival Hemorrhage and Sclera Anicteric
Cardiovascular: Regular Rate and S1/S2
Pulmonary: Clear
Gastrointestinal: Soft, Non Tender, Non Distended and Normal Bowel Sounds
Genito-Urinary: Negative CVA Tenderness
Extremities: Negative Edema
Wound: Other (Sternum: no open wounds, dry, nontender. Epigastric area scarring from previous 3 drains sites; right one with tiny wound without drainage, no erythema. )
Neurological: AO x 3
Lines: PICC (RUE: No erythema)
Lab / Diagnostic Study Results
03/11/24 12:29
03/11/24 12:28
Abs Immat Gran (auto) 0.0 10^3/uL (0-0.05) 03/11/24 12:29
Absolute Neuts (auto) 2.8 10^3/uL (1.4-6.5) 03/11/24 12:29
Absolute Lymphs (auto) 0.9 10^3/uL (1.2-3.4) L 03/11/24 12:
Absolute Monos (auto) 0.6 10^3/uL (0.1-0.6) 03/11/24 12:
Absolute Basos (auto) 0.1 10^3/uL (0-0.2) 03/11/24 12:
Immature Gran % 0.2 % (0-0.5) 03/11/24 12:
Neutrophils % 63.5 % (42.2-75.2) 03/11/24 12:
Lymphocytes % 21.7 % (20.5-51.1) 03/11/24 12:
Monocytes % 12.7 % (1.7-9.3) H 03/11/24 12:
Eosinophils % 0.7 % (0-6) 03/11/24 12:
Basophils % 1.2 % (0-2) 03/11/24 12:
PT 16.6 Sec (11.4-14.6) H 03/11/24 12:
INR 1.36 03/11/24 12:28
Assessment / Plan
# Recent suspected sternotomy site Infection with possible underlying osteomyelitis
-Bcx's negative
- surgical site culture pseudomonas and Enterobacter
- To continue cefepime 2g IV q12 x6 weeks through 03/18/24
# Post-op sinus dysfunction, now symptomatic
- From ID standpoint, she is cleared for PPM placment.
# Elevated LFT's - stable
- Present since 03/08/24 AST 80, ALT 107
- Monitor for now.
-Continue Cefepime.
# Conditions [employer]
Mitral Valve Regurgitation s/p Mitral Valve Repair on December 21, 2023
Post-Op Atrial Fibrillation
Peripheral Artery Disease s/p RLE Stents
Essential Hypertension
Hyperlipidemia
Breast Cancer s/p Left Mastectomy and Chemo/Radiation
lung nodule
Care Review
Plan reviewed with: Physician (Dr. Agudelo)
--- NOTE | 2024-03-11 17:15 | W.PN.UPDATE ---
Update Note
Progress Note Update
EP Card
The patient has sick sinus syndrome with symptomatic sinus pauses. She has a class I indication for cardiac pacing. ID felt that it was safe for her to have a pacemaker.
I offered to place a pacemaker today. She politely declined.
She came to the ER for evaluation of left sided chest pain and not her dizzy/syncopal spells. She told me that she would be willing to have a pacemaker in the future but wants her chest pain evaluated.
Agree with holding meds that can produce bradycardia.
Her pacemaker will be an elective procedure and a do not foresee asking for an off hours or weekend or holiday implant.
Hospitalist and Dr. Agudelo updated.
--- NOTE | 2024-03-11 17:54 | CONSULT.CT ---
Consultation
-
Date/Time Consultation Requested: 03/11
Date/Time Consultation Performed: 03/11
Requesting Provider: Dr Timoteo Agudelo
Performing Provider: Isaura Griffin for Dr Fabrizio Mak
Reason for Consultation: assess patient report of pinpoint opening at pacing wire site
Patient History
Physicians
Family Physician: Angela Delacruz
Inpatient Investment Banking Manager: [facility] Cardiology
History of Present Illness
78-year-old -[place] female known to CT surgery from hospitalization (12/20-12/28/23) for radical mitral valve repair and left atrial appendage exclusion with Dr. Fabrizio Mak. Post-operatively, patient developed onset atrial fibrillation and
patient discharged on Amiodarone and Eliquis. Patient was again hospitalized from 02/04 to 02/11/2024 with sternotomy surgical site infection and possible underlying osteomyelitis. Wound cx + Pseudomonas and Enterobacter and treated with Cefepime 2g
IV q12h x 6 weeks through 03/18/2024 ([facility]). She is followed by Dr. Vernon. Patient presented to [facility] ED 830/24 with 2 to 3 weeks of dizziness and endorses discomfort during dizziness episodes. Patient evaluated by cardiology
and diagnosed with sick sinus syndrome with symptomatic sinus pause. She was cleared by ID to undergo pacemaker insertion.
Cardiac surgery was consulted for patient report of pinpoint opening at prior temporary epicardial pacemaker site below right breast/diaphragm. Patient displayed a photo taken last week by home care nurse that depicted pinpoint opening without
drainage or erythema. Patient is tearful and states that 'everything happened so fast after my in October.'
Past Medical History
Past Medical History: Atrial Fib, Cancer (left breast cancer s/p mastectomy/chemo/radiation 2020), HTN, Hypercholesterolemia and Other (Peripheral Artery Disease s/p RLE Stents)
Past Surgical History
Past Surgical History: Mastectomy (left 2020) and Other (MV repair with band annuloplasty and core-mikey cords for myxomatous degeneration 12/21/23)
Family History
Mother: N/A
Father: N/A
Social History
Alcohol: None
Drug: None
Tobacco: Non-Smoker
Personal: ( 10/2023)
Living: Alone
Employment: Retired
Allergies
Allergy/AdvReac Type Severity Reaction Status Date / Time
No Known Allergies Allergy Verified 03/11/24 11:28
Home Medications
�Medication �Instructions �Recorded �Confirmed �Type
[place] Plus Ultra 1 tab PO DAILY Supplement 11/25/23 03/11/24 History
aspirin 81 mg chewable tablet 81 mg PO DAILY Blood Clot 11/25/23 03/11/24 History
Prevention/Tx
cholecalciferol (vitamin D3) 25 25 mcg PO DAILY Supplement ##0 11/25/23 03/11/24 History
mcg (1,000 unit) tablet (Vitamin
D3)
magnesium 200 mg tablet 300 mg PO DAILY Electrolyte 11/25/23 03/11/24 History
Repletion
rosuvastatin 20 mg tablet 20 mg PO DAILY High Cholesterol 11/25/23 03/11/24 History
acetaminophen 325 mg tablet 650 mg (2 x 325 mg) PO Q4HPRN PRN 12/28/23 03/11/24 Rx
mild pain,headache,temp >101F #0
tabs
apixaban 5 mg tablet (Eliquis) 5 mg PO BID Blood clot 12/28/23 03/11/24 Rx
prevention/tx #30 tabs
pantoprazole 40 mg tablet,delayed 40 mg PO DAILY GI prophylaxis 12/28/23 03/11/24 Rx
release while on Eliquis #30 tabs
cefepime 2 gram solution for 2,000 mg IV Q12H 37 days #0 ea 02/11/24 03/11/24 Rx
injection
eucalyptus-menthol oral mucosal 3.1 mg mucous membrane BIDPRN PRN 03/11/24 03/11/24 History
lozenge cough
furosemide 20 mg tablet (Lasix) 20 mg PO DAILY 03/11/24 03/11/24 History
metoprolol succinate 25 mg 12.5 mg PO QPM Heart 03/11/24 03/11/24 History
tablet,extended release 24 hr disease/condition
(Toprol XL)
polyethylene glycol 3350 17 17 g PO DAILYPRN PRN constipation 03/11/24 03/11/24 History
gram/dose oral powder
Review of Systems
-
History Source: Patient
HEENT: Reports No Symptoms
Respiratory: Reports No Symptoms
Cardiac: Reports Chest Pain (Left-sided chest pain associated with dizziness)
Abdomen/GI: Reports No Symptoms
: Reports No Symptoms
Musculoskeletal: Reports No Symptoms
Skin: Reports Other (Report of pinpoint opening at prior temporary epicardial pacemaker site)
Neurological: Reports Dizzy
Vascular: Reports No Symptoms
Physical Exam
Vital Signs
Temp 98.3 F 03/11/24 11:28
Temp route: Oral 03/11/24 11:28
Pulse 65 03/11/24 17:30
Resp Rate 17 03/11/24 17:30
Blood pressure 170/71 03/11/24 17:00
MAP (cuff-Marcela Monitor) 100 03/11/24 17:00
MAP 113 03/11/24 11:56
SaO2 100 03/11/24 17:30
Oxygen Mode of Delivery Room air 03/11/24 12:14
Can the patient verbally communicate their pain? Yes 03/11/24 11:56
Pain scale ratin 03/11/24 11:56
Actual Weight 66.1 kg 03/11/24 11:41
Body Mass Index (BMI) 22.8 03/11/24 11:41
Labs
03/11/24 12:29
03/11/24 12:28
PT 16.6 Sec (11.4-14.6) H 03/11/24 12:28
APTT 33.3 Sec (23.4-35.0) 03/11/24 12:28
Troponin I 0.016 ng/ml 03/11/24 12:29
Xtb-Y-Xopnxpnivil Pept 1730 pg/ml 03/11/24 12:29
Exam
General: Well Developed and No Apparent Distress
HEENT: Normocephalic, Anicteric, Moist Mucous Membranes and PERRLA
Neck: Trachea Midline
Respiratory: Clear
Cardiac: S1/S2 and Irregular Rhythm
GI: Soft, Non Tender and Non Distended
Rectal: Deferred by Provider
Skin: Warm, Dry and Other (Prior temporary epicardial pacemaker site (below right breast/diaphragm) closed without erythema. Clipped wire palpable under skin.)
Neuro: AO x 3, No Motor Deficits and Nonfocal/Grossly Intact
Extremities: Pulses (+2/4 B/L DP pulses)
Lymph: No Lymphadenopathy
Psych: Other (Tearful)
Assessment / Plan
-
Assessment:
Prior temporary epicardial pacemaker site closed without erythema. Palpable retained clipped wire under skin that is not causing discomfort at present.
Plan:
No intervention warranted at this time.
Patient to be admitted for pacemaker.
Rest of care per primary team.
Data Reviewed
-
EKG: Report Reviewed by me and Discussed with Physician
Labs: Labs Reviewed by me and Discussed with Physician
--- NOTE | 2024-03-11 19:10 | PTCARENOTE ---
pt oriented to unit. pt aaox3, vss. pt educated on plan of care and pt verbalized understanding. call warren within reach.
[2024-03-11] MEDS: STERILE WATER FOR INJECTION 10 ML IV (20:00)
[2024-03-11] MEDS: ELIQUIS 5 MG PO (20:00)
[2024-03-11] MEDS: MAXIPIME 2000 MG IV (20:00)
--- NOTE | 2024-03-11 22:30 | PTCARENOTE ---
pt pleasant and cooperative. denies dizziness or chest pain at this time. pt sinus raffy on monitor with 1st degree hb. pauses noted at times up to 2 seconds. hr in 40's. pt asymptomatic .pt ambulated with assist of one to br without difficulty.will
observe frequently.
[2024-03-11 22:53] LABS: Troponin I 0.034 ng/ml
[2024-03-12] VITALS (7 sets, daily range): BP systolic 129–156; BP diastolic 65–95; BMI 22.8
[2024-03-12 05:48] LABS: Hematocrit 29.5 % (37.0-47.0); Hemoglobin 9.7 g/dL (12.0-16.0); Mean Corp Hgb Conc. 32.9 g/dL (33.0-37.0); Mean Corpuscular Hgb 27.7 pg (27.0-31.0); Mean Corpuscular Volume 84.3 fL (81.0-99.0); Mean Platelet Volume 9.7 fL (7.4-10.4); Platelet Count 164 10^3/uL (130-400); Red Cell Dist. Width 18.1 % (11.5-14.5); White Blood Cell Count 3.3 10^3/uL (4.8-10.8)
[2024-03-12 06:16] LABS: Blood Urea Nitrogen 17 mg/dl (7-17); Calcium 9.1 mg/dl (8.4-10.2); Carbon Dioxide 30 mmol/L (22-30); Chloride 105 mmol/L (98-107); Estimated Creatinine Clearance 74 ml/min; Glucose 91 mg/dl (70-99); Potassium 3.8 mmol/L (3.5-5.1); Sodium 143 mmol/L (135-145); eGFR > 60.00
[2024-03-12 06:28] LABS: Troponin I 0.029 ng/ml
[2024-03-12 06:48] LABS: TSH 3.06 uIU/ml (0.47-4.68)
--- NOTE | 2024-03-12 07:05 | W.PN.CD ---
Today's Communication / Plan
-
Continue off metoprolol
Monitor on telemetry
Monitor on recurrence of chest pain
Patient will remain off Eliquis.
Impression / Plan
-
Sinus node dysfunction:
-Patient was noted to have issues with sinus node dysfunction which was being evaluated when she was postop and was being assessed as an outpatient. She is continue to have woozy spells even after discontinuing amiodarone a couple weeks ago and in
the ER was noted to have a symptomatic episode with a sinus pause of 3.8 seconds.
-Recommendation is for permanent pacemaker which was discussed between Dr. Bettencourt and patient yesterday patient had some concern regarding some chest discomfort that she had so she wanted to hold off on pacing until this is clarified. Patient also
needed additional clearance from ID
-ID has evaluated and stated the patient is cleared to have a permanent pacemaker
-Likely pacemaker on 03/15/24
-stop metoprolol, follow telemetry
-Chest discomfort. Components are atypical intermittent chest symptoms that she had yesterday even prior to surgery she would periodically have some left chest symptoms that she would massage that she thought were related to prior breast surgery.
No history of obstructive coronary disease she had mild nonobstructive disease by preoperative cardiac catheterization prior to her mitral valve surgery. Patient with no chest pain overnight
-Exact etiology unclear. With prior cath results and troponins coronary ischemia unlikely
-Could be musculoskeletal considering recent surgery. Continue to assess
s/p MV repair:
-CT surgery has been updated on situation
Aflutter( atypical)/AFIB (paroxysmal):
-on Eliquis, last dose last night
-in SR as above
-BB to be stopped
-Eliquis is on hold in anticipation of surgery. Can place on IV heparin while assessing timing of pacemaker
HTN:
-monitor
-will likely need to add back on some antihypertensives this admit (was on meds prior to surgery)
Physical Exam
Vital Signs/Labs
Vital Signs
Temp Pulse Resp BP Pulse Ox
98.4 F 60 18 134/74 99
03/12/24 05:16 03/12/24 05:15 03/12/24 05:16 03/12/24 04:58 03/12/24 05:16
03/11/24 03/12/24 03/13/24
06:59 06:59 06:59
Actual Weight 66.1 kg
03/12/24 05:09
03/12/24 05:09
PT 16.6 Sec (11.4-14.6) H 03/11/24 12:28
INR 1.36 03/11/24 12:28
APTT 33.3 Sec (23.4-35.0) 03/11/24 12:28
TSH 3.06 uIU/ml (0.47-4.68) 03/12/24 05:09
03/11/24
12:29
Mux-C-Dywnwzxkbqm Pept 1730
LAB Results
03/11/24 03/11/24 03/12/24
12:29 22:17 00:24
Troponin I 0.016 0.034 Cancelled
03/12/24
05:09
Troponin I 0.029
Physical Exam
Constitutional: No acute distress
Cardiovascular: Rhythm & rate is regular
Respiratory: Wheeze Absent and Rhonchi Absent
GI: Soft
Neuro/Psych: Alert and Oriented
Data Reviewed
-
Date of Service: March 12, 2024
Medical Decision Making: Reviewed Test Results
X-Ray/CT/US/MRI/NUC/PET: Report Reviewed by me
Medical Tests (PFT, Pathology etc): Report Reviewed by me
Labs: Labs Reviewed by me
[2024-03-12 07:07] LABS: Vitamin B12 932 pg/ml (239-931)
[2024-03-12] MEDS: LOW STRENGTH ASPIRIN 81 MG PO (08:16)
[2024-03-12] MEDS: LASIX 20 MG PO (08:16)
[2024-03-12] MEDS: STERILE WATER FOR INJECTION 10 ML IV ×2 (08:16→20:13)
[2024-03-12] MEDS: CRESTOR 20 MG PO (08:16)
[2024-03-12] MEDS: PROTONIX 40 MG PO (08:16)
[2024-03-12] MEDS: ELIQUIS 5 MG PO ×2 (08:16→20:12)
[2024-03-12] MEDS: VITAMIN D3 (cholecalciferol) 25 MCG PO (08:16)
[2024-03-12] MEDS: MAXIPIME 2000 MG IV ×2 (08:16→20:12)
--- NOTE | 2024-03-12 09:45 | W.PN.HOSP.TC ---
Today's Communication/Plan
-
Watch on telemetry
Hold beta-blockers
Assessment / Plan
Assessment / Plan
78-year-old female underwent mitral valve repair and left atrial exclusion on 12/21/[address] Mak. She had complete heart block postoperatively requiring temporary pacing. She also developed atrial fibrillation and was discharged on Eliquis,
Toprol and amiodarone. She was readmitted with right pleural effusion and also sternal osteomyelitis was discharged on IV cefepime through 03/18/2024. Patient comes back because of dizziness and near syncope.
# Near syncope with pauses on heart rhythm
Patient had complete heart block postoperatively requiring temporary pacing.
2-second pause noted also bradycardia
May need pacemaker-patient did not want to get it yesterday. Possibly Thursday
Hold beta-blockers
Cardiology following
No evidence of ischemia per troponin
Hold Eliquis thursday night in anticipation of pacemaker on Thursday per discussion with cardiology
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
# Sternal osteomyelitis-on IV antibiotics-cefepime
wound cultures grew Pseudomonas and Enterobacter
Complete the course through 03/18/2024
Okay for pacemaker placement per ID
# Elevated LFTs-no right upper quadrant tenderness-ultrasound Noted-fatty liver
# Anemia-check iron studies
# Right pleural effusion-during recent admission
# Atrial flutter-continue Eliquis. Hold metoprolol. Amiodarone was discontinued with a postop follow-up with Dr. Mak. Watch on the monitor
# Hyperlipidemia/atherosclerosis-continue statin
# Fatty liver
# History of left breast cancer with history of mastectomy
# DVT prophylaxis-Eliquis
# Full code
Discussed with nursing at bedside
Anticipated Discharge: > 48 hours
Subjective/Interval History
-
Date of Service: March 12, 2024
Objective Data
-
Labs:
Laboratory Results
03/12/24
05:09
WBC 3.3 L
Hgb 9.7 L
Hct 29.5 L
Plt Count 164
Sodium 143
Potassium 3.8
Chloride 105
Carbon Dioxide 30
BUN 17
Creatinine 0.6
Glucose 91
Calcium 9.1
Vital Signs:
Vital Signs
Temp Pulse Resp BP Pulse Ox
98.2 F 60 18 134/74 99
03/12/24 08:22 03/12/24 05:15 03/12/24 08:22 03/12/24 04:58 03/12/24 08:22
--- NOTE | 2024-03-12 10:31 | W.PN.ID1 ---
Date of Service
Date of Service: March 12, 2024
Today's Communication
Continue cefepime through 03/18.
Assessment / Plan
# Recent suspected sternotomy site Infection with possible underlying osteomyelitis
-Bcx's negative
- surgical site culture pseudomonas and Enterobacter
- To continue cefepime 2g IV q12 x6 weeks through 03/18/24
# Symptomatic arrythmia, sinus pauses
- From ID standpoint, she is cleared for PPM placement.
# Elevated LFT's - trending down.
- Present since 03/08/24 AST 80, ALT 107
- Abd US: fatty liver.
-Continue Cefepime.
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
Mitral Valve Regurgitation s/p Mitral Valve Repair on December 21, 2023
Post-Op Atrial Fibrillation
Peripheral Artery Disease s/p RLE Stents
Essential Hypertension
Hyperlipidemia
Breast Cancer s/p Left Mastectomy and Chemo/Radiation
lung nodule
Chief Complaint
-: Other (sinus pauses)
Subjective / Review of Systems
Had episodes of sinus pauses overnight. No new complaints.
Vital Signs / Physical Exam
Vital Signs
Vital Signs
Temp Pulse Resp BP Pulse Ox
98.2 F 60 18 134/74 99
03/12/24 08:22 03/12/24 05:15 03/12/24 08:22 03/12/24 04:58 03/12/24 08:22
Physical Exam
Constitutional: No Acute Distress
Pulmonary: Other (decreased BS basses)
Gastrointestinal: Soft, Non Tender and Non Distended
Genito-Urinary: Negative CVA Tenderness
Extremities: Negative Edema
Wound: Other (Sternum unremarkable. Upper abdomen previous pacing wires, drain sites tiny superficial dry wound below right breast. )
Neurological: AO x 3
Lines: PICC (RUE no erythema)
Objective Data
Lab Data
Lab Results
03/12/24 05:09
03/12/24 05:09
PT 16.6 Sec (11.4-14.6) H 03/11/24 12:28
INR 1.36 03/11/24 12:28
APTT 33.3 Sec (23.4-35.0) 03/11/24 12:28
Estimated Creat Clear 74 ml/min 03/12/24 05:09
Total Bilirubin 1.0 mg/dl (0.2-1.3) 03/11/24 12:28
AST 66 U/L (14-36) H 03/11/24 12:28
ALT 107 U/L (0-35) H 03/11/24 12:28
Alkaline Phosphatase 144 U/L (38-126) H 03/11/24 12:28
Most recent labs reviewed.
[2024-03-12 10:33] LABS: ALT (SGPT) 89 U/L (0-35); AST (SGOT) 56 U/L (14-36); Albumin 3.1 g/dl (3.5-5.0); Alkaline Phosphatase 118 U/L (38-126); Direct Bilirubin 0.3 mg/dl (0.0-0.4); Iron 50 ug/dl (37-170); Total Bilirubin 0.9 mg/dl (0.2-1.3); Total Protein 5.6 g/dl (6.3-8.2)
[2024-03-12 10:42] LABS: Percent Saturation 14 % (20-50); Total Iron Binding Capacity 337 ug/dl (265-497)
[2024-03-12 11:10] LABS: Ferritin 29.6 ng/ml (11.1-264.0)
--- NOTE | 2024-03-12 13:20 | PTCARENOTE ---
pt continues to be sr w/ first degree, pt ambulated to the BR and had a 'dizzy spell.' On the tele pt was having a 4.27 sec pause. pt ambulated back to bed, VSS. Notified Fouzia Espitia NP. Will continue to monitor tele. pt sitting OOB to chair for
lunch and tolerating well. pt educated on plan of care and pt verbalized understanding. call warren within reach.
[2024-03-12] MEDS: TYLENOL 650 MG PO (16:22)
--- NOTE | 2024-03-12 17:17 | PTCARENOTE ---
pt c/o WRIGHT, 09/19, Tylenol given as needed. pt offers no other complaints at this time. pt educated on plan of care for the evening and pt verbalized understanding. call warren within reach.
--- NOTE | 2024-03-12 21:00 | PTCARENOTE ---
Pt had 4.75 second pause, symptomatic w/ dizziness and diaphoresis. Dr. Agudelo notified. Also [facility] Ed notified, orders to follow.
[2024-03-12] MEDS: KCL 20 MEQ PO (21:20)
[2024-03-12] MEDS: MAGNESIUM OXIDE 500 MG PO (21:20)
[2024-03-13] VITALS (23 sets, daily range): BP systolic 68–163; BP diastolic 50–108; PULSE 63–107; BMI 23.2; BMI 21.0
[2024-03-13 04:13] LABS: Blood Urea Nitrogen 20 mg/dl (7-17); Carbon Dioxide 30 mmol/L (22-30); Chloride 106 mmol/L (98-107); Estimated Creatinine Clearance 63 ml/min; Glucose 103 mg/dl (70-99); Magnesium 1.6 mg/dl (1.6-2.3); Potassium 4.1 mmol/L (3.5-5.1); Sodium 141 mmol/L (135-145); eGFR > 60.00
[2024-03-13] MEDS: MAGNESIUM SULFATE 50 IV (08:21)
[2024-03-13] MEDS: VITAMIN D3 (cholecalciferol) 25 MCG PO (08:25)
[2024-03-13] MEDS: STERILE WATER FOR INJECTION 10 ML IV ×2 (08:25→20:37)
[2024-03-13] MEDS: MAXIPIME 2000 MG IV ×2 (08:25→20:36)
[2024-03-13] MEDS: PROTONIX 40 MG PO (08:26)
[2024-03-13] MEDS: CRESTOR 20 MG PO (08:26)
[2024-03-13] MEDS: ELIQUIS PO (08:58)
[2024-03-13] MEDS: LASIX 20 MG PO (09:00)
[2024-03-13] MEDS: LOW STRENGTH ASPIRIN 81 MG PO (09:00)
--- NOTE | 2024-03-13 10:03 | W.PN.CD ---
Today's Communication / Plan
-
Patient with sinus pauses overnight. Up to 5 seconds with sleep. As previously noted has had some symptomatic pauses.
Plan for pacemaker on 03/15/2024.
Will hold off on temp pacing at this point. But if worsening would consider.
Low-dose dopamine
Reviewed with primary team and EP as we coordinate treatment plan.
Impression / Plan
-
Sinus node dysfunction:
-Patient was noted to have issues with sinus node dysfunction which was being evaluated when she was postop and was being assessed as an outpatient. She is continue to have woozy spells even after discontinuing amiodarone a couple weeks ago and in
the ER was noted to have a symptomatic episode with a sinus pause of 3.8 seconds.. Patient with some additional pauses overnight longest of 5 seconds which occurred during sleep although sometimes pauses seem to wake her from sleep.
-Recommendation is for permanent pacemaker which was discussed between Dr. Bettencourt and patient yesterday patient had some concern regarding some chest discomfort that she had so she wanted to hold off on pacing until this is clarified. Patient also
needed additional clearance from ID
-ID has evaluated and stated the patient is cleared to have a permanent pacemaker
-Metoprolol stopped.
-Stopped for anticipation of procedures.
-Chest discomfort. Brief episodes on admission. Unlikely to be angina with negative troponins and considering mild nonobstructive coronary artery disease on presurgical catheterization. Patient said no further chest discomfort since being
admitted. Continue to observe for recurrence.
s/p MV repair:
-CT surgery has been updated on situation
Aflutter( atypical)/AFIB (paroxysmal):
-on Eliquis, last dose last night
-in SR as above
-BB to be stopped
-Eliquis is on hold in anticipation of surgery. Can place on IV heparin while assessing timing of pacemaker
HTN:
-monitor
-will likely need to add back on some antihypertensives this admit (was on meds prior to surgery)
Physical Exam
Vital Signs/Labs
Vital Signs
Temp Pulse Resp BP Pulse Ox
98.8 F 69 20 141/78 99
03/13/24 07:39 03/13/24 09:00 03/13/24 07:39 03/13/24 09:00 03/13/24 07:41
03/12/24 03/13/24 03/14/24
06:59 06:59 06:59
Actual Weight 66.1 kg 67.1 kg
03/12/24 05:09
03/13/24 03:28
PT 16.6 Sec (11.4-14.6) H 03/11/24 12:28
INR 1.36 03/11/24 12:28
APTT 33.3 Sec (23.4-35.0) 03/11/24 12:28
Magnesium 1.6 mg/dl (1.6-2.3) 03/13/24 03:28
TSH 3.06 uIU/ml (0.47-4.68) 03/12/24 05:09
03/11/24
12:29
Spq-H-Jtygwujefvg Pept 1730
LAB Results
03/11/24 03/11/24 03/12/24
12:29 22:17 00:24
Troponin I 0.016 0.034 Cancelled
03/12/24
05:09
Troponin I 0.029
Physical Exam
Constitutional: No acute distress
Cardiovascular: Rhythm & rate is regular
Respiratory: Respiratory effort normal
GI: Soft
Neuro/Psych: Alert
Data Reviewed
-
Date of Service: March 13, 2024
Medical Decision Making: Reviewed Test Results
Echo: Report Reviewed by me
Medical Tests (PFT, Pathology etc): Report Reviewed by me
Labs: Labs Reviewed by me
--- NOTE | 2024-03-13 11:01 | W.PN.HOSP.TC ---
Today's Communication/Plan
-
Watch HR
Dopamine
Atropine PRN
Assessment / Plan
Assessment / Plan
78-year-old female underwent mitral valve repair and left atrial exclusion on 12/21/[address] Mak. She had complete heart block postoperatively requiring temporary pacing. She also developed atrial fibrillation and was discharged on Eliquis,
Toprol and amiodarone. She was readmitted with right pleural effusion and also sternal osteomyelitis was discharged on IV cefepime through 03/18/2024. Patient comes back because of dizziness and near syncope.
CVS: S1-S2 raffy
Chest: CTA B/L
Abdomen: Soft, NT / Bowel sounds present
Extremities: No edema, normal pulses
AUDIO EXPERIENCE EXPERT: Non focal exam
# Near syncope with pauses on heart rhythm
Patient had complete heart block postoperatively requiring temporary pacing.
Monitor reviewed-multiple pauses overnight , one over 5 sec.
Dopamine being started
PRN Atropine already ordered.
Hold beta-blockers, Amiodarone was already stopped as OP.
Cardiology following
No evidence of ischemia per troponin
Replace low normal Mag
TSH OK
Lyme test pending.
Hold Eliquis thursday night in anticipation of pacemaker on Thursday per discussion with cardiology
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
# Sternal osteomyelitis-on IV antibiotics-cefepime
wound cultures grew Pseudomonas and Enterobacter
Complete the course through 03/18/2024
Okay for pacemaker placement per ID
# Elevated LFTs-no right upper quadrant tenderness-ultrasound Noted-fatty liver- Improving.
# Anemia-Mild ROSITA. Add PO iron
# Right pleural effusion-during recent admission
# Atrial flutter-continue Eliquis. Hold metoprolol. Amiodarone was discontinued with a postop follow-up with Dr. Mak. Watch on the monitor
# Hyperlipidemia/atherosclerosis-continue statin
# Fatty liver
# History of left breast cancer with history of mastectomy
# DVT prophylaxis-Eliquis
# Full code
Discussed with nursing at bedside
D/W Cardiology.
I offered to talk to patient's family. She stated that her son is away on a business trip. She has been in touch with her niece. 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
and she wants to fill the family in regarding updates. They are aware that she has bradycardia and the need for a pacemaker.
time more than 50 min
Plans to move to CVICU noted.
Anticipated Discharge: > 48 hours
Subjective/Interval History
-
Date of Service: March 13, 2024
Objective Data
-
Labs:
Laboratory Results
03/13/24
03:28
Sodium 141
Potassium 4.1
Chloride 106
Carbon Dioxide 30
BUN 20 H
Creatinine 0.7
Glucose 103 H
Calcium 9.0
Vital Signs:
Vital Signs
Temp Pulse Resp BP Pulse Ox
98.8 F 69 20 141/78 99
03/13/24 07:39 03/13/24 09:00 03/13/24 07:39 03/13/24 09:00 03/13/24 07:41
I&O
03/12/24 03/13/24 03/14/24
06:59 06:59 06:59
Intake Total 480 / 480 480 / 480
Balance 480 / 480 480 / 480
[2024-03-13] MEDS: DOPamine 400 MG 250 IV (11:19)
--- NOTE | 2024-03-13 11:45 | PTCARENOTE ---
pt is sr w/ first degree, vss. pt c/o intermittently feeling dizzy when having 'episodes.' notified dr. yoselyn gallo ordered and hung per protocol. pt educated on plan of care for the day and pt verbalized understanding. call warren within reach.
[2024-03-13] MEDS: COLACE 100 MG PO ×2 (11:53→20:36)
[2024-03-13] MEDS: FEOSOL 325 MG PO (11:53)
--- NOTE | 2024-03-13 14:27 | PTCARENOTE ---
pt c/o chest 'tightness' and feeling heart palpitations. Tele monitor, aflutter HR in the 110s, vss. notified dr. topete, stopped dopamine. tx to CVICU per order. external pads placed per dr. topete. pt educated on plan of care and pt verbalized
understanding.
--- NOTE | 2024-03-13 15:15 | PTCARENOTE ---
pt received from IVU RN, BHARATHI. oriented, A-flutter on the monitor, HR 100s. SBP 130s. palpable pulses, no edema. pt on RA, 99% POX. pt denies SOB. pt abdomen s/n, +BS. denies n/v. voids. lower sternum bandaid in place. Transcutaneous pacing pads in
place. RUE PICC in place.
--- NOTE | 2024-03-13 20:00 | PTCARENOTE ---
PT resting comfortably in chair, transferred to bed with minimal assistance. see worklist for detailed assessment
[2024-03-13] MEDS: MIRALAX 17 GRAMS PO (20:36)
[2024-03-13] MEDS: SENOKOT PO (20:37)
[2024-03-13 22:50] LABS: APTT 32.1 Sec (23.4-35.0)
[2024-03-13] MEDS: HEPARIN 25000 UNITS/250 ML IV (23:08)
[2024-03-14] VITALS (19 sets, daily range): BP systolic 94–147; BP diastolic 50–92; BMI 20.9
[2024-03-14 05:32] LABS: Hematocrit 34.9 % (37.0-47.0); Hemoglobin 11.6 g/dL (12.0-16.0); Mean Corp Hgb Conc. 33.2 g/dL (33.0-37.0); Mean Corpuscular Hgb 28.6 pg (27.0-31.0); Mean Corpuscular Volume 86.2 fL (81.0-99.0); Mean Platelet Volume 9.6 fL (7.4-10.4); Platelet Count 187 10^3/uL (130-400); Red Blood Cell Count 4.05 10^6/uL (4.20-5.40); White Blood Cell Count 4.2 10^3/uL (4.8-10.8)
[2024-03-14 05:44] LABS: APTT 66.3 Sec (23.4-35.0)
[2024-03-14 05:53] LABS: Blood Urea Nitrogen 25 mg/dl (7-17); Calcium 9.2 mg/dl (8.4-10.2); Carbon Dioxide 31 mmol/L (22-30); Chloride 102 mmol/L (98-107); Estimated Creatinine Clearance 55 ml/min; Glucose 114 mg/dl (70-99); Magnesium 1.8 mg/dl (1.6-2.3); Potassium 3.9 mmol/L (3.5-5.1); Sodium 140 mmol/L (135-145); eGFR > 60.00
--- NOTE | 2024-03-14 08:25 | W.PN.HOSP.TC ---
Today's Communication/Plan
-
Pacemaker insertion tomorrow. Continue telemetry.
Assessment / Plan
Assessment / Plan
78-year-old female underwent mitral valve repair and left atrial exclusion on 12/21/[address] Mak. She had complete heart block postoperatively requiring temporary pacing. She also developed atrial fibrillation and was discharged on Eliquis,
Toprol and amiodarone. She was readmitted with right pleural effusion and also sternal osteomyelitis was discharged on IV cefepime through 03/18/2024. Patient comes back because of dizziness and near syncope.
# Near syncope with pauses on heart rhythm
Patient had complete heart block postoperatively requiring temporary pacing.
Monitor reviewed-multiple pauses overnight but asymptomatic and around 2s.
Off Dopamine drip now.
PRN Atropine already ordered.
Hold beta-blockers, Amiodarone was already stopped as OP.
Cardiology following
No evidence of ischemia per troponin
TSH OK
Lyme test pending.
Hold Eliquis thursday night in anticipation of pacemaker on Thursday per discussion with cardiology
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
# Sternal osteomyelitis-on IV antibiotics-cefepime
wound cultures grew Pseudomonas and Enterobacter
Complete the course through 03/18/2024
Okay for pacemaker placement per ID
# Elevated LFTs-no right upper quadrant tenderness-ultrasound Noted-fatty liver- Improving.
# Anemia-Mild ROSITA. Add PO iron
# Right pleural effusion-during recent admission
# Atrial flutter-continue AC. Hold metoprolol. Amiodarone was discontinued with a postop follow-up with Dr. Mak. Watch on the monitor
# Hyperlipidemia/atherosclerosis-continue statin
# Fatty liver
# History of left breast cancer with history of mastectomy
# DVT prophylaxis-Eliquis
# Full code
D/W RN
Anticipated Discharge: 24 - 48 hours
Subjective/Interval History
-
Date of Service: March 14, 2024
Slept well last night.
Denies any dizziness or lightheadedness. No chest pain or palpitations.
Patient had pauses last night around 2 seconds but not symptomatic.
Objective Data
-
Labs:
Laboratory Results
03/13/24 03/14/24 03/14/24
22:29 05:17 11:30
WBC 4.2 L
Hgb 11.6 L
Hct 34.9 L
Plt Count 187
APTT 32.1 66.3 H Pending
Sodium 140
Potassium 3.9
Chloride 102
Carbon Dioxide 31 H
BUN 25 H
Creatinine 0.8
Glucose 114 H
Calcium 9.2
Vital Signs:
Vital Signs
Temp Pulse Resp BP Pulse Ox
98 F 68 16 147/70 100
03/14/24 04:00 03/14/24 06:00 03/14/24 04:00 03/14/24 06:00 03/14/24 04:00
I&O
03/13/24 03/14/24 03/15/24
06:59 06:59 06:59
Intake Total 480 / 480 480 / 480
Output Total 80 / 80
Balance 480 / 480 400 / 400
Review of Systems
-
Constitutional: Denies Fever
Respiratory: Denies Cough or Trouble Breathing
Abdomen/GI: Denies Abdominal Pain, Nausea or Vomiting
Neuro: Denies Dizzy
Physical Exam
-
General: No Apparent Distress
HEENT: Moist Mucous Membranes
Respiratory: Clear to Auscultation
Cardiac: Regular Rhythm and S1/S2
GI: Soft
Neuro: AO x 3
Data Reviewed
-
Labs: Labs Reviewed by me
--- NOTE | 2024-03-14 09:00 | PTCARENOTE ---
Patient received from thai masseur resting comfortably in bed, AAO X 3, denies pain. NSR via cm, converted to slow afib, VSS (Dr. Carter notified. SaO2 @ 100% on RA. RUE PICC present w/heparin gtt infusing (see work list for infusion rates and
titrations). Assisted oob to bathroom, voided, am care performed independently. Assisted back to bed w/rhythm change. Breakfast ordered, ok to eat per physician. Patient updated to plan of care for the day, in agreement. See work list for full
assessment and interventions performed.
[2024-03-14] MEDS: MAXIPIME 2000 MG IV ×2 (09:23→20:15)
[2024-03-14] MEDS: STERILE WATER FOR INJECTION 10 ML IV ×2 (09:23→20:15)
[2024-03-14] MEDS: PROTONIX 40 MG PO (09:23)
[2024-03-14] MEDS: MAGNESIUM OXIDE 500 MG PO ×2 (09:23→20:15)
[2024-03-14] MEDS: TYLENOL 650 MG PO ×2 (09:23→20:32)
[2024-03-14] MEDS: FEOSOL 325 MG PO (09:24)
[2024-03-14] MEDS: SENOKOT 8.6 MG PO ×2 (09:24→20:15)
[2024-03-14] MEDS: CRESTOR 20 MG PO (09:24)
[2024-03-14] MEDS: LASIX 20 MG PO (09:24)
[2024-03-14] MEDS: LOW STRENGTH ASPIRIN 81 MG PO (09:24)
[2024-03-14] MEDS: COLACE 100 MG PO ×2 (09:24→20:15)
--- NOTE | 2024-03-14 10:26 | W.PN.ID1 ---
Date of Service
Date of Service: March 14, 2024
Today's Communication
Continue cefepime through 03/18.
PPM tomorrow.
Assessment / Plan
# Recent suspected sternotomy site Infection with possible underlying osteomyelitis
-Bcx's negative
- surgical site culture pseudomonas and Enterobacter
- To continue cefepime 2g IV q12 x6 weeks through 03/18/24
# Symptomatic arrythmia, sinus pauses
- From ID standpoint, she is cleared for PPM placement tomorrow.
# Elevated LFT's - trending down.
- Present since 03/08/24 AST 80, ALT 107
- Abd US: fatty liver.
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
Mitral Valve Regurgitation s/p Mitral Valve Repair on December 21, 2023
Post-Op Atrial Fibrillation
Peripheral Artery Disease s/p RLE Stents
Essential Hypertension
Hyperlipidemia
Breast Cancer s/p Left Mastectomy and Chemo/Radiation
lung nodule
Chief Complaint
-: Other (sinus pauses)
Subjective / Review of Systems
No complaints
Vital Signs / Physical Exam
Vital Signs
Vital Signs
Temp Pulse Resp BP Pulse Ox
98 F 45 17 105/67 100
03/14/24 08:20 03/14/24 09:24 03/14/24 08:20 03/14/24 09:24 03/14/24 08:45
Physical Exam
Constitutional: No Acute Distress and Comfortable
Pulmonary: Other (decreased BS basses)
Gastrointestinal: Soft, Non Tender and Non Distended
Genito-Urinary: Negative CVA Tenderness
Extremities: Negative Edema
Wound: Other (Sternum unremarkable. Upper abdomen previous pacing wires, drain sites tiny superficial pinpoint dry wound below right breast. )
Neurological: AO x 3
Lines: PICC (RUE no erythema)
Objective Data
Lab Data
Lab Results
03/14/24 05:17
03/14/24 05:17
PT 16.6 Sec (11.4-14.6) H 03/11/24 12:28
INR 1.36 03/11/24 12:28
APTT 66.3 Sec (23.4-35.0) H 03/14/24 05:17
Estimated Creat Clear 55 ml/min 03/14/24 05:17
Total Bilirubin 0.9 mg/dl (0.2-1.3) 03/12/24 05:09
AST 56 U/L (14-36) H 03/12/24 05:09
ALT 89 U/L (0-35) H 03/12/24 05:09
Alkaline Phosphatase 118 U/L (38-126) 03/12/24 05:09
Most recent labs reviewed.
[2024-03-14] MEDS: VITAMIN D3 (cholecalciferol) 25 MCG PO (10:53)
[2024-03-14] MEDS: KCL 20 MEQ PO (10:53)
--- NOTE | 2024-03-14 11:22 | W.PN.CD ---
Today's Communication / Plan
-
plan for PPM in AM
will hold heparin in AM
Impression / Plan
-
Sinus node dysfunction:
-Patient was noted to have issues with sinus node dysfunction which was being evaluated when she was postop and was being assessed as an outpatient. She is continue to have woozy spells even after discontinuing amiodarone a couple weeks ago and in
the ER was noted to have a symptomatic episode with a sinus pause of 3.8 seconds.. Patient with some additional pauses overnight longest of 5 seconds which occurred during sleep although sometimes pauses seem to wake her from sleep.
-Recommendation is for permanent pacemaker which was discussed between Dr. Bettencourt and patient yesterday patient had some concern regarding some chest discomfort that she had so she wanted to hold off on pacing until this is clarified. Patient also
needed additional clearance from ID
-ID has evaluated and stated the patient is cleared to have a permanent pacemaker
-Metoprolol stopped.
-plan for PPM in AM
Chest discomfort. Brief episodes on admission. Unlikely to be angina with negative troponins and considering mild nonobstructive coronary artery disease on presurgical catheterization. Patient said no further chest discomfort since being
admitted. Continue to observe for recurrence.
s/p MV repair:
-CT surgery has been updated on situation
Aflutter( atypical)/AFIB (paroxysmal): in/out this admission with slow ventricular response
-BB stopped
-Eliquis is on hold in anticipation of surgery. on IV heparin, which we will hold in AM
HTN:
-monitor
Physical Exam
Vital Signs/Labs
Vital Signs
Temp Pulse Resp BP Pulse Ox
98 F 46 17 105/67 100
03/14/24 08:20 03/14/24 11:00 03/14/24 08:20 03/14/24 11:00 03/14/24 08:45
03/13/24 03/14/24 03/15/24
06:59 06:59 06:59
Actual Weight 67.1 kg 60.6 kg
03/14/24 05:17
03/14/24 05:17
PT 16.6 Sec (11.4-14.6) H 03/11/24 12:28
INR 1.36 03/11/24 12:28
APTT 66.3 Sec (23.4-35.0) H 03/14/24 05:17
Magnesium 1.8 mg/dl (1.6-2.3) 03/14/24 05:17
TSH 3.06 uIU/ml (0.47-4.68) 03/12/24 05:09
03/11/24
12:29
Fqh-E-Judrtchantk Pept 1730
LAB Results
03/11/24 03/11/24 03/12/24
12: 22:17 00:24
Troponin I 0.016 0.034 Cancelled
03/12/24
05:09
Troponin I 0.029
Physical Exam
Constitutional: No acute distress and Comfortable
EENT: Moist mucous membranes
Cardiovascular: Pedal edema is absent, JVD pressure is normal, Systolic murmur absent and Rhythm/rate is irregular
Respiratory: Respiratory effort normal, Lungs clear to auscul. and Wheeze Absent
GI: Soft and Distention absent
Neuro/Psych: AO x 3
Data Reviewed
-
Date of Service: March 14, 2024
EKG: Other (Tele: A fib 40s-50s)
Labs: Labs Reviewed by me
[2024-03-14 12:14] LABS: Lyme Antibody Screen, EIA Negative (Negative)
--- NOTE | 2024-03-14 12:17 | PTCARENOTE ---
VS obtained, assessment stable. OK per Dr. Carter for oob, patient assisted to chair.
[2024-03-14 12:38] LABS: APTT 68.7 Sec (23.4-35.0)
--- NOTE | 2024-03-14 16:15 | PTCARENOTE ---
VS obtained, assessment stable. Patient resting comfortably oob. Dinner ordered. Family in room for visit.
[2024-03-14 19:11] LABS: APTT 108.4 Sec (23.4-35.0)
--- NOTE | 2024-03-14 21:19 | PTCARENOTE ---
assumed care of patient @ 2114. Received pt sitting in chair, AOx3. VSS. Heparin infusing through PICC. Afib on tele. BP stable. pt dozing in chair, call warren within reach
[2024-03-15] VITALS (13 sets, daily range): BP systolic 88–135; BP diastolic 52–94; BMI 21.1
--- NOTE | 2024-03-15 00:39 | PTCARENOTE ---
pt resting comfortably in bed, no change in assessment
[2024-03-15] MEDS: HEPARIN 25000 UNITS/250 ML IV (02:11)
[2024-03-15 02:19] LABS: Hemoglobin 10.7 g/dL (12.0-16.0); Mean Corp Hgb Conc. 33.4 g/dL (33.0-37.0); Mean Corpuscular Volume 83.8 fL (81.0-99.0); Mean Platelet Volume 9.3 fL (7.4-10.4); Platelet Count 178 10^3/uL (130-400); Red Blood Cell Count 3.82 10^6/uL (4.20-5.40); Red Cell Dist. Width 17.9 % (11.5-14.5); White Blood Cell Count 4.3 10^3/uL (4.8-10.8)
[2024-03-15 02:37] LABS: APTT > 200 Sec (23.4-35.0)
--- NOTE | 2024-03-15 04:00 | PTCARENOTE ---
pt has been NPO since midnight. labs drawn and sent. pt resting comfortably no change in assessment .
--- NOTE | 2024-03-15 08:11 | PTCARENOTE ---
wiped down with chg wipes pre pacemaker placement. VSS. NSR occasional pauses this am. symptomatic
[2024-03-15] MEDS: COLACE 100 MG PO ×2 (08:13→19:20)
[2024-03-15] MEDS: SENOKOT 8.6 MG PO ×2 (08:13→19:20)
[2024-03-15] MEDS: PROTONIX 40 MG PO (08:13)
[2024-03-15] MEDS: FEOSOL 325 MG PO (08:14)
[2024-03-15] MEDS: LASIX 20 MG PO (08:14)
[2024-03-15] MEDS: LOW STRENGTH ASPIRIN 81 MG PO (08:14)
[2024-03-15] MEDS: VITAMIN D3 (cholecalciferol) 25 MCG PO (08:14)
[2024-03-15] MEDS: CRESTOR 20 MG PO (08:14)
[2024-03-15] MEDS: MAXIPIME 2000 MG IV ×2 (08:15→19:20)
[2024-03-15] MEDS: STERILE WATER FOR INJECTION 10 ML IV ×2 (08:16→19:21)
--- NOTE | 2024-03-15 09:10 | W.PN.HOSP.TC ---
Today's Communication/Plan
-
Pacemaker insertion today
DC planning
Assessment / Plan
Assessment / Plan
78-year-old female underwent mitral valve repair and left atrial exclusion on 12/21/[address] Mak. She had complete heart block postoperatively requiring temporary pacing. She also developed atrial fibrillation and was discharged on Eliquis,
Toprol and amiodarone. She was readmitted with right pleural effusion and also sternal osteomyelitis was discharged on IV cefepime through 03/18/2024. Patient comes back because of dizziness and near syncope.
# Near syncope with pauses on heart rhythm
# Sinus node dysfunction
Patient had complete heart block postoperatively requiring temporary pacing.
Off Dopamine drip now.
PRN Atropine already ordered.
Hold beta-blockers, Amiodarone was already stopped as OP.
Cardiology following
No evidence of ischemia per troponin
TSH OK
Lyme test pending.
Hold Eliquis thursday night in anticipation of pacemaker on Thursday per discussion with cardiology
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
# Sternal osteomyelitis-on IV antibiotics-cefepime
wound cultures grew Pseudomonas and Enterobacter
Complete the course through 03/18/2024
Okay for pacemaker placement per ID
# Elevated LFTs-no right upper quadrant tenderness-ultrasound Noted-fatty liver- Improving.
# Anemia-Mild ROSITA. Add PO iron
# Right pleural effusion-during recent admission
# Atrial flutter-continue AC. Hold metoprolol. Amiodarone was discontinued with a postop follow-up with Dr. Mak. Watch on the monitor
# Hyperlipidemia/atherosclerosis-continue statin
# Fatty liver
# History of left breast cancer with history of mastectomy
# DVT prophylaxis-Eliquis
# Full code
DC planning when cleared by cardiology
Anticipated Discharge: Within 24 hours
Subjective/Interval History
-
Date of Service: March 15, 2024
Denies any dizziness or lightheadedness.
No shortness of breath or chest pain.
Objective Data
-
Labs:
Laboratory Results
03/15/24
02:08
WBC 4.3 L
Hgb 10.7 L
Hct 32.0 L
Plt Count 178
APTT > 200 H*
Vital Signs:
Vital Signs
Temp Pulse Resp BP Pulse Ox
98 F 69 16 117/66 100
03/15/24 08:00 03/15/24 08:14 03/15/24 04:30 03/15/24 08:14 03/15/24 08:00
I&O
03/14/24 03/15/24 03/16/24
06:59 06:59 06:59
Intake Total 480 / 480 627 / 627 0 / 0
Output Total 80 / 80
Balance 400 / 400 627 / 627 0 / 0
Review of Systems
-
Constitutional: Denies Fever
Respiratory: Denies Cough
Abdomen/GI: Denies Abdominal Pain, Nausea or Vomiting
Physical Exam
-
General: No Apparent Distress
HEENT: Moist Mucous Membranes
Respiratory: Clear to Auscultation
Cardiac: Regular Rhythm and S1/S2
GI: Soft
Neuro: AO x 3
Psych: Calm; Negative Confused
Data Reviewed
-
Labs: Labs Reviewed by me
--- NOTE | 2024-03-15 10:37 | W.PN.ID1 ---
Date of Service
Date of Service: March 15, 2024
Today's Communication
To continue cefepime 2g IV q12 x6 weeks through 03/18/24, then stop and PICC line removal
- as patient seen in the hospital previously planned follow up 04/05 can be cancelled, follow up with PCP
Assessment / Plan
# Recent suspected sternotomy site Infection with possible underlying osteomyelitis
- Bcx's negative
- previous surgical site culture pseudomonas and Enterobacter
- To continue cefepime 2g IV q12 x6 weeks through 03/18/24, then stop and PICC line removal
- as patient seen in the hospital previously planned follow up 04/05 can be cancelled, follow up with PCP
# Symptomatic arrythmia, sinus pauses
- s/p pacamaker placement
# Elevated LFT's - trending down.
- Present since 03/08/24 AST 80, ALT 107
- Abd US: fatty liver.
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
Mitral Valve Regurgitation s/p Mitral Valve Repair on December 21, 2023
Post-Op Atrial Fibrillation
Peripheral Artery Disease s/p RLE Stents
Essential Hypertension
Hyperlipidemia
Breast Cancer s/p Left Mastectomy and Chemo/Radiation
lung nodule
Chief Complaint
-: Other (sternal osteomyelitis, sinus pauses)
Subjective / Review of Systems
remains afebrile
bp stable
sternal surgical site fully healed
Vital Signs / Physical Exam
Vital Signs
Vital Signs
Temp Pulse Resp BP Pulse Ox
98 F 69 16 117/66 100
03/15/24 08:00 03/15/24 08:14 03/15/24 04:30 03/15/24 08:14 03/15/24 08:00
Physical Exam
Constitutional: No Acute Distress
Cardiovascular: Regular Rate and S1/S2; Negative Murmur or Rub
Pulmonary: Clear and Symmetric; Negative Wheezes or Rales
Gastrointestinal: Soft, Non Tender, Non Distended and Normal Bowel Sounds
Skin: Warm, Dry and Other (sternal surgical site fully healed ); Negative Rash or Jaundice
Lines: PICC (no erythema, warmth or tenderness)
Objective Data
Lab Data
Lab Results
03/15/24 02:08
03/14/24 05:17
PT 16.6 Sec (11.4-14.6) H 03/11/24 12:28
INR 1.36 03/11/24 12:28
APTT > 200 Sec (23.4-35.0) H* 03/15/24 02:08
Estimated Creat Clear 55 ml/min 03/14/24 05:17
Total Bilirubin 0.9 mg/dl (0.2-1.3) 03/12/24 05:09
AST 56 U/L (14-36) H 03/12/24 05:09
ALT 89 U/L (0-35) H 03/12/24 05:09
Alkaline Phosphatase 118 U/L (38-126) 03/12/24 05:09
Most recent labs reviewed.
03/11 lyme serologies negative
--- NOTE | 2024-03-15 11:50 | W.PN.CD ---
Today's Communication / Plan
-
- PPM today
- Transfer to IVU post implant.
Impression / Plan
-
Sinus node dysfunction:
-Symptomatic pauses
-Infection treated - ID is on board and has picc line with IV antibiotics
-Left sided Mastectomy and lymph ode resection.
- Patient prefers right sided device
- ID has evaluated and stated the patient is cleared to have a permanent pacemaker
-Metoprolol stopped. can resume post PPM
-plan for PPM today
Chest discomfort.
- Associated with sinus pauses.
- PPM today.
s/p MV repair:
-CT surgery has been updated on situation
Aflutter( atypical)/AFIB (paroxysmal): in/out this admission with slow ventricular response
-BB stopped - can resume post PPM.
-Resume Eliquis. Discontinue heparin.
HTN:
-monitor with PPm and BB changes.
Physical Exam
Vital Signs/Labs
Vital Signs
Temp Pulse Resp BP Pulse Ox
98 F 69 16 117/66 100
03/15/24 08:00 03/15/24 08:14 03/15/24 04:30 03/15/24 08:14 03/15/24 08:00
03/14/24 03/15/24 03/16/24
06:59 06:59 06:59
Actual Weight 60.6 kg 61.1 kg
03/15/24 02:08
03/14/24 05:17
PT 16.6 Sec (11.4-14.6) H 03/11/24 12:28
INR 1.36 03/11/24 12:28
APTT > 200 Sec (23.4-35.0) H* 03/15/24 02:08
Magnesium 1.8 mg/dl (1.6-2.3) 03/14/24 05:17
TSH 3.06 uIU/ml (0.47-4.68) 03/12/24 05:09
03/11/24
12:29
Xdd-S-Cwcbcbylgfx Pept 1730
Physical Exam
Constitutional: No acute distress and Comfortable
EENT: Anicteric and Moist mucous membranes
Cardiovascular: Rhythm & rate is regular, Pedal edema is absent and JVD pressure is normal
Respiratory: Respiratory effort normal, Lungs clear to auscul., Wheeze Absent and Crackles Absent
GI: Soft, Distention absent, Non tender and Normal bowel sounds
Neuro/Psych: Alert, Oriented, AO x 3 and Motor deficits absent
Other: Cath Site and Cardiac Device Site
Data Reviewed
-
Date of Service: March 15, 2024
Medical Decision Making: Reviewed Test Results, Tests Ordered, Independent Historian Assessment, Test Interpretation and Review of Case with other Provider
EKG: Tracing Personally Visualized and interpreted
Echo: Report Reviewed by me
X-Ray/CT/US/MRI/NUC/PET: Image Personally Visualized and interpreted
Labs: Labs Reviewed by me
Old Records: Reviewed
--- NOTE | 2024-03-15 11:54 | ITS.CL.PACE ---
[employer] - Pacemaker Implant
Pacemaker Implant
Procedure Report:
Dual Chamber Pacemaker Placement:
Ms. Jj is a very pleasant 78 yrs old woman with h/o mitral valve insufficiency, mitral valve repair and left atrial atri clip on 12/21/[address] Mak with brief complete heart block postoperatively requiring temporary pacing but recovered and
is on Eliquis for paroxysmal atrial fibrillation on Toprol and amiodarone. She was readmitted with right pleural effusion and also sternal osteomyelitis was discharged on IV cefepime through 03/18/2024. She has left mastectomy for her breast CA and
has picc line on right side for IV antibiotics. ID is following and reports low risk for infection to proceed with pacemaker placement.
Indications: Tachy bradycardia syndrome
Date of the Procedure: 03/15/2024
Pre-Operative Diagnosis: Tachy bradycardia syndrome
Post-Operative Diagnosis: Tachy bradycardia syndrome
Procedure Performed: DUAL CHAMBER PACEMAKER IMPLANTATION
Performing Physician:
Vonda Klein MD
Anesthesia:
See anesthesia records
Pre-operative antibiotics:
Ancef
Detailed Description of the Procedure:
The patient was identified using hospital identification and informed consent obtained for the procedure. The risks were explained including, but not limited to: Bleeding, infection, arrhythmia, stroke, vascular/cardiac/lung puncture, surgery,
pacemaker dependency/device malfunction. All questions were answered.
The patient was brought to the electrophysiology laboratory in relatively stable condition in 6 hours of fasting state. Continuous electrocardiographic and hemodynamic monitoring was initiated. The initial rhythm was sinus rhythm.
The procedure site was meticulously prepared with surgical scrub and allowed to dry with no pooling. Sterile draping was applied to cover the procedure site. The image intensifier was draped with sterile bag and positioned over the patient.
A surgical pause and time out was performed immediately prior to the procedure with review of her medical history, recent labs, allergies and medications with site of procedure identified and consent noted in the chart. Antibiotics pre operatively
given. All team members concurred.
The right infraclavicular region was prepped and draped in the usual sterile fashion. Local anesthesia was administered subcutaneously using 1% lidocaine / Bupivacaine. The right cephalic vein cut-down was performed with an incision at the
delto-pectoral groove, and vascular sheaths were introduced for lead access. These were advanced into the right ventricle and the right atrium. The right ventricular lead was secured in position with an active fixation technique at the septal
location. The RA lead was attached in the right atrial appendage with active fixation. There was excellent sensing, pacing, and impedance from the leads, with no diaphragmatic stimulation at 10 V output.�Bovie cautery, antibiotics, and fluoroscopy
were used.
The sheaths were withdrawn, and the thresholds remained acceptable. The leads were secured in position at the venous entry site with 2-0 Ethibond. A pocket was fashioned contiguous to the incision. The electrode terminals were connected to the pulse
generator, which was placed into the pocket. The wound was irrigated thoroughly with antibiotic solution and closed in 3 layers using 2-0 V-Loc then two layers of 4-0 V loc sutures. Steri-Strips and a bandage were applied externally.�
Procedure End:
The procedure was tolerated well. A pressure dressing was applied
Estimated Blood loss:
5 cc
Specimens Removed:
No cultures and no specimens were obtained. No intraoperative pathology was identified.
Fluoro time:
5 min / 5mGy
Urine output:
None
Packs / Drains/ Tubes:
None
Instrument / Sponge Count Correct:
Yes
Complications of the Procedure:
None
Condition of Patient at Time of Transfer:
Hemodynamically stable with no neurological or vascular compromise.
Device information:�
Generator: Crow[employer]; Model: [id number]; Serial # [id number]�
Atrial Lead: Crow[employer]; Model: 2088TC/46; Serial # [id number]�
Measured data in the right atrium was sensing of 0.9 mV, impedance of 480 ohms and threshold of 1.0 V at 0.4ms�
RV Lead: Crow[employer]; Model: 2088TC/52; Serial # [id number]�
��������������� Measured data in the RV lead was sensing of 6.0 mV, impedance of 680 ohms and threshold of 0.75 V at 0.4ms�
Jonathon parameter settings were DDDR 60-120 bpm. �
��������������� Mode Switch: On
��������������� Paced AV interval: 180ms
��������������� Sensed AV interval: 150 ms.
��������������� Rate Adaptive A-V Interval: Off
���������������
Summary:
Successful implantation of MRI compatible dual chamber pacemaker
Results/Recommendations:
-Please follow up CXR�
1. Please provide patient with adequate pain control�
Instructions to be given to patient:�
- Please follow up with [facility] at [address] [place] [address] ([phone]) to get your wound checked within 14 days of your discharge.
- Do not wet incision site until after it is evaluated at cardiology clinic. No showers until then. Sponge baths are OK.�
- Do not lift left elbow above shoulder, particularly with sudden jerking movements, for 1 month�
- Do not lift anything weighing more than 10 pounds with the left arm for 1 month�
- If you notice any fevers, shortness of breath, lightheadedness, chest pain, or worsening swelling in the wound site, please contact the arrhythmia clinic, contact your horseback excavator, or present to the hospital for evaluation.�
Vonda Klein MD
Electrophysiology
--- NOTE | 2024-03-15 12:50 | PTCARENOTE ---
Assumed care of pt upon tsf from CCL post PPM insertion. Pt arrives awake and alert, Ox3 VSS, CM shows A/V pacing 100%, POX 100% on RA. PPM intact to RU chest, immobilizer intact. Tegaderm intact site remains free of hematoma. Will continue to
monitor closely.
--- NOTE | 2024-03-15 15:08 | CM ---
Addendum entered by Mandy Shane RN 03/15/24 15:40:
I spoke to [facility] and the Pharmacist is going to get an order from Dr. Fuentes to resume antibiotics at home.
Original Note:
Chart reviewed. Patient is independent of ADLS, lives with her granddaughter james jenkins 1 STH, 1 PRAVEEN, 0 DME. Patient is currently receiving IV antibiotics through [facility] until 03/18. I left a message with [facility] to see if they would need any
information with reference to discharge. Patient is also current with [facility]. I spoke to Elsy at [facility] and patient is current. Referral sent to resume services. Plan is for the patient to return home with [facility] and [facility]. CM to follow
--- NOTE | 2024-03-15 16:16 | PTCARENOTE ---
CXR done and resulted. No pneumo, leads in place.
[2024-03-15] MEDS: TOPROL XL 12.5 MG PO (17:44)
[2024-03-15] MEDS: ANCEF 5 IV (17:44)
[2024-03-15] MEDS: ELIQUIS 5 MG PO (19:20)
--- NOTE | 2024-03-15 21:10 | PTCARENOTE ---
Assumed care of pt. R upper chest w/ Rico dsg c/d/i. R arm in immobilizer. Activity restrictions reviewed w/ pt. Verbalizes understanding. Pt has no c/o at this time. Currently in bed; call briana w/in reach.
[2024-03-16 02:47] VITALS: BP 119/64
[2024-03-16] MEDS: ANCEF 5 IV (02:48)
[2024-03-16 03:41] LABS: Hematocrit 34.2 % (37.0-47.0); Hemoglobin 11.3 g/dL (12.0-16.0); Mean Corpuscular Hgb 28.2 pg (27.0-31.0); Mean Corpuscular Volume 85.3 fL (81.0-99.0); Mean Platelet Volume 9.5 fL (7.4-10.4); Platelet Count 185 10^3/uL (130-400); Red Blood Cell Count 4.01 10^6/uL (4.20-5.40); Red Cell Dist. Width 17.5 % (11.5-14.5); White Blood Cell Count 5.7 10^3/uL (4.8-10.8)
[2024-03-16 04:06] LABS: Blood Urea Nitrogen 27 mg/dl (7-17); Calcium 9.2 mg/dl (8.4-10.2); Carbon Dioxide 26 mmol/L (22-30); Chloride 102 mmol/L (98-107); Estimated Creatinine Clearance 63 ml/min; Glucose 122 mg/dl (70-99); Magnesium 1.9 mg/dl (1.6-2.3); Potassium 4.8 mmol/L (3.5-5.1); Sodium 139 mmol/L (135-145); eGFR > 60.00
[2024-03-16 07:26] VITALS: BP 126/68
--- NOTE | 2024-03-16 07:44 | W.PN.CD ---
Today's Communication / Plan
-
- Stable from cardiac stand point.
Impression / Plan
-
Sinus node dysfunction:
-Symptomatic pauses
-s/p dual chamber PPM - right sided - St Henri
-Metoprolol resumed post PPM
- PPM interrogation today
Sternal osteomyelitis-on IV antibiotics-cefepime
-assisted antibiotics as per ID
s/p MV repair:
-Appears stable.
Aflutter( atypical)/AFIB (paroxysmal): in/out this admission with slow ventricular response
-now in sinus rhythm
-Resumed Eliquis. Discontinue heparin.
HTN:
-monitor with PPm and BB changes.
- Appears well controlled.
Physical Exam
Vital Signs/Labs
Vital Signs
Temp Pulse Resp BP Pulse Ox
98.5 F 67 20 119/64 100
03/16/24 07:23 03/16/24 03:00 03/16/24 07:23 03/16/24 02:47 03/16/24 07:23
03/15/24 03/16/24 03/17/24
06:59 06:59 06:59
Actual Weight 61.1 kg
03/16/24 02:55
03/16/24 02:55
PT 16.6 Sec (11.4-14.6) H 03/11/24 12:28
INR 1.36 03/11/24 12:28
APTT > 200 Sec (23.4-35.0) H* 03/15/24 02:08
Magnesium 1.9 mg/dl (1.6-2.3) 03/16/24 02:55
TSH 3.06 uIU/ml (0.47-4.68) 03/12/24 05:09
03/11/24
12:29
Bgz-O-Gygjtgeebjz Pept 1730
Physical Exam
Constitutional: No acute distress and Comfortable
EENT: Anicteric and Moist mucous membranes
Cardiovascular: Rhythm & rate is regular, Pedal edema is absent, JVD pressure is normal and Systolic murmur absent
Respiratory: Respiratory effort normal, Lungs clear to auscul., Wheeze Absent and Crackles Absent
GI: Soft, Non tender and Normal bowel sounds
Neuro/Psych: Alert, Oriented and AO x 3
Other: Cardiac Device Site
Data Reviewed
-
Date of Service: March 16, 2024
Medical Decision Making: Reviewed Test Results, Tests Ordered, Independent Historian Assessment, Test Interpretation and Review of Case with other Provider
EKG: Tracing Personally Visualized and interpreted
Echo: Report Reviewed by me
X-Ray/CT/US/MRI/NUC/PET: Image Personally Visualized and interpreted
Labs: Labs Reviewed by me
Old Records: Reviewed
--- NOTE | 2024-03-16 07:45 | PTCARENOTE ---
Assumed care of pt from prev nsg shift; Pt AAOx3 w/no c/o CP or SOB. Pt reporting 'mild' 3/10 R upper chest tenderness at her new PPM insertion site. Pt's VS stable w/HR in the 60's; BP this AM 126/68. R upper chest PPM site w/dressing C/D/I w/no
signs or symptoms of bleeding or hematoma. Pt w/call warren within reach.
--- NOTE | 2024-03-16 08:30 | W.PN.HOSP.TC ---
Today's Communication/Plan
-
DC
Assessment / Plan
Assessment / Plan
78-year-old female underwent mitral valve repair and left atrial exclusion on 12/21/[address] Mak. She had complete heart block postoperatively requiring temporary pacing. She also developed atrial fibrillation and was discharged on Eliquis,
Toprol and amiodarone. She was readmitted with right pleural effusion and also sternal osteomyelitis was discharged on IV cefepime through 03/18/2024. Patient comes back because of dizziness and near syncope.
# Near syncope with pauses on heart rhythm
# Sinus node dysfunction
Patient had complete heart block postoperatively requiring temporary pacing.
Off Dopamine drip now.
Status post pacemaker insertion 03/15
Resume beta-blockers when okay from cardiology; Amiodarone was already stopped as OP.
No evidence of ischemia per troponin
TSH OK
Lyme test serum-negative.
Resume Eliquis if okay from cardiology standpoint
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
# Sternal osteomyelitis-on IV antibiotics-cefepime
wound cultures grew Pseudomonas and Enterobacter
Complete the course through 03/18/2024
Okay for pacemaker placement per ID
# Elevated LFTs-no right upper quadrant tenderness-ultrasound Noted-fatty liver- Improving. Follow-up as outpatient.
# Anemia-Mild ROSITA. Add PO iron
# Right pleural effusion-during recent admission
# Atrial flutter-continue AC. Resume metoprolol per cardiology amiodarone was discontinued with a postop follow-up with Dr. Mak. Watch on the monitor
# Hyperlipidemia/atherosclerosis-continue statin
# Fatty liver
# History of left breast cancer with history of mastectomy
# DVT prophylaxis-Eliquis
# Full code
Medically stable for DC
Total time of discharge 32 minutes
Anticipated Discharge: Today
Subjective/Interval History
-
Date of Service: March 16, 2024
Not much of pain from pacemaker insertion site.
No dizziness.
No lightheadedness.
No shortness of breath.
Objective Data
-
Labs:
Laboratory Results
03/16/24
02:55
WBC 5.7
Hgb 11.3 L
Hct 34.2 L
Plt Count 185
Sodium 139
Potassium 4.8
Chloride 102
Carbon Dioxide 26
BUN 27 H
Creatinine 0.7
Glucose 122 H
Calcium 9.2
Vital Signs:
Vital Signs
Temp Pulse Resp BP Pulse Ox
98.5 F 66 20 126/68 100
03/16/24 07:23 03/16/24 07:26 03/16/24 07:23 03/16/24 07:26 03/16/24 07:23
I&O
03/15/24 03/16/24 03/17/24
06:59 06:59 06:59
Intake Total 627 / 627 0 / 0
Balance 627 / 627 0 / 0
Review of Systems
-
Constitutional: Denies Fever
Abdomen/GI: Denies Abdominal Pain, Nausea or Vomiting
Physical Exam
-
General: No Apparent Distress
HEENT: Moist Mucous Membranes
Respiratory: Non Labored Respirations; Negative Accessory Resp Muscle Use
Cardiac: Regular Rhythm (A sensed V paced on the monitor), S1/S2 and Other (Pacemaker insertion site on the right upper chest wall without swelling or bleeding)
GI: Soft
Neuro: AO x 3
Psych: Calm; Negative Confused
Data Reviewed
-
Labs: Labs Reviewed by me
--- NOTE | 2024-03-16 08:37 | W.DS.TRANS ---
DC Summary - Process Coach
-
Discharge Instructions:
Discharge Diagnosis/Procedures Sinus node dysfunction with symptomatic pauses
status post pacemaker implant 03/15
Diet Low Cholesterol
Activity As tolerated
Driving Restrictions No driving for 1 week
Bathing Restrictions OK to Shower
Blood Work CMP blood work in one week to follow on liver
function tests - arrange through your PCP
Other Services VN
Instructions:
Stand-Alone Forms: DC Inst - Implanted Device
Changes to Home Medications: No
Discharge Medications:
DC Medications w/original date entered in [employer]
Leander Plus Ultra 1 tab PO DAILY Supplement 11/25/23
aspirin 81 mg chewable tablet 81 mg PO DAILY Blood Clot Prevention/Tx 11/25/23
cholecalciferol (vitamin D3) 25 mcg (1,000 unit) tablet (Vitamin D3) 25 mcg PO DAILY Supplement ##0 11/25/23
magnesium 200 mg tablet 300 mg PO DAILY Electrolyte Repletion 11/25/23
rosuvastatin 20 mg tablet 20 mg PO DAILY High Cholesterol 11/25/23
acetaminophen 325 mg tablet 650 mg (2 x 325 mg) PO Q4HPRN PRN mild pain,headache,temp >101F #0 tabs 12/28/23
apixaban 5 mg tablet (Eliquis) 5 mg PO BID Blood clot prevention/tx #30 tabs 12/28/23
pantoprazole 40 mg tablet,delayed release 40 mg PO DAILY GI prophylaxis while on Eliquis #30 tabs 12/28/23
cefepime 2 gram solution for injection 2,000 mg IV Q12H 37 days #0 ea 02/11/24
eucalyptus-menthol oral mucosal lozenge 3.1 mg mucous membrane BIDPRN PRN cough 03/11/24
furosemide 20 mg tablet (Lasix) 20 mg PO DAILY Fluid Retention/Swelling 03/11/24
metoprolol succinate 25 mg tablet,extended release 24 hr (Toprol XL) 12.5 mg PO QPM Heart disease/condition 03/11/24
polyethylene glycol 3350 17 gram/dose oral powder 17 g PO DAILYPRN PRN constipation 03/11/24
Home Medication Changes
Pending Results: No
[2024-03-16] MEDS: MAXIPIME 2000 MG IV (09:01)
[2024-03-16] MEDS: LOW STRENGTH ASPIRIN 81 MG PO (09:01)
[2024-03-16] MEDS: FEOSOL 325 MG PO (09:01)
[2024-03-16] MEDS: COLACE 100 MG PO (09:01)
[2024-03-16] MEDS: ELIQUIS 5 MG PO (09:01)
[2024-03-16] MEDS: CRESTOR 20 MG PO (09:01)
[2024-03-16] MEDS: PROTONIX 40 MG PO (09:01)
[2024-03-16] MEDS: LASIX 20 MG PO (09:01)
[2024-03-16] MEDS: VITAMIN D3 (cholecalciferol) 25 MCG PO (09:01)
[2024-03-16] MEDS: FLUSH (NSS) 2 FLUSH IV (09:02)
[2024-03-16] MEDS: STERILE WATER FOR INJECTION 10 ML IV (09:02)
[2024-03-16] MEDS: SENOKOT 8.6 MG PO (09:02)
[2024-03-16 11:00] VITALS: BP 102/50
[2024-03-16 11:03] VITALS: BP 102/50
--- NOTE | 2024-03-16 12:35 | PTCARENOTE ---
Pt's D/C instructions discussed. Pt's smudger D/C'd & pt discharged to home w/son providing transportation. Pt escorted out by staff via wheelchair.
--- NOTE | 2024-03-16 14:18 | CM ---
CM following for DC planning needs.
Patient for DC to home today.
DC plan is for home w/ [facility] + [facility].
Updated [facility] + [facility] of DC.
--- NOTE | 2024-03-17 18:03 | W.DCSUMMARY ---
Discharge Summary
Discharge Data
Date of Admission: 03/11/24
Date of Discharge: 03/16/24
-
Pending Results: No
Hospital Course
Primary diagnosis:
Symptomatic near syncope secondary to sinus node dysfunction with the significant pauses status post pacemaker insertion.
Secondary diagnosis:
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
Sternal osteomyelitis-on IV antibiotics-cefepime
Fatty liver
Atrial flutter(atypical)/paroxysmal fibrillation
Hospital course:
Patient admitted to cardiothoracic surgery as above and antibiotics for sternal osteomyelitis presented with symptomatic near syncope and noted to have significant pauses correlating with his symptoms. Was seen by cardiology felt to sinus node
dysfunction. Had an uneventful pacemaker implantation and was discharged home. She is currently on cefepime IV for sternal osteomyelitis which will come to an end on 03/18/2024.
Consultants on board:
Consult on board-Dr. Vonda Klein
Infectious disease-David Kohli
Discharge Plan
-
Patient Disposition: Home with Home Care
Discharge Diagnosis/Procedures: Sinus node dysfunction with symptomatic pauses status post pacemaker implant 03/15
Diet: Low Cholesterol
Activity: As tolerated
Driving Restrictions: No driving for 1 week
Bathing Restrictions: OK to Shower
Blood Work: CMP blood work in one week to follow on liver function tests - arrange through your PCP
Other Services: VN
Stand Alone Forms: DC Inst - Implanted Device
Referrals:
[facility] [Outside]
[facility] [Outside]
Quintin Hairston MD [Active] - 03/21/24 11:20 am (Post device incision check appointment)
Angela Delacruz MD [Non-Admitting Privileges] - in less than 1 week
Prescriptions:
Continued
aspirin 81 mg Tablet,Chewable
81 mg PO DAILY
magnesium 200 mg Tablet
300 mg PO DAILY
rosuvastatin 20 mg Tablet
20 mg PO DAILY
cholecalciferol (vitamin D3) [Vitamin D3] 25 mcg (1,000 unit) Tablet
25 mcg PO DAILY Qty: 0
Blanch Plus Ultra
1 tab PO DAILY
acetaminophen 325 mg Tablet
650 mg PO Q4HPRN PRN (Reason: mild pain,headache,temp >101F ) Qty: 0 0RF
pantoprazole 40 mg Tablet,Delayed Release (Dr/Ec)
40 mg PO DAILY Qty: 30 1RF
Eliquis 5 mg Tablet
5 mg PO BID Qty: 30 1RF
cefepime 2 gram Recon Soln
2,000 mg IV Q12H 37 Days Qty: 0 0RF
furosemide [Lasix] 20 mg Tablet
20 mg PO DAILY
eucalyptus-menthol Lozenge
3.1 mg MUCOUS MEMBRANE BIDPRN PRN (Reason: cough)
metoprolol succinate [Toprol XL] 25 mg tablet extended release 24 hr
12.5 mg PO QPM
polyethylene glycol 3350 17 gram/dose powder
17 g PO DAILYPRN PRN (Reason: constipation)
Discharge Orders:
Discharge Patient (As Directed); Ordered 03/16/24
Ordered By: Blade Gan
Care Plan Goals
Care Plan Goals:
Problem: Readiness for enhanced knowledge related to diagnosis and treatment plan
Goal: Understand your diagnosis and treatment plan needs, including medications if applicable.
Instructions: Know your diagnosis, underlying causes and treatment plan options, including medications if applicable. Consult with your health care team to learn about your diagnosis and treatment plan, including medications if applicable.
Discharge Date and Time
Discharge Date/Time: 03/16/24 13:03
Print Language: MALTESE
== END 2024-03-16 13:03 | disposition home health service (06) | DRG 243 ==
LOC: IVU 15:55
PROVIDERS: Internal Medicine Cardiovascular Disease; Nurse Practitioner Adult Health; ADMITTING PHYSICIAN Hospitalist; ATTENDING PHYSICIAN Internal Medicine; CONSULT PHYSICIAN Internal Medicine Cardiovascular Disease; CONSULT PHYSICIAN Internal Medicine Infectious Disease; EMERGENCY PHYSICIAN Emergency Medicine; FAMILY PHYSICIAN Family Medicine; OTHER PHYSICIAN Thoracic Surgery (Cardiothoracic Vascular Surgery)
PROC: 02H63JZ Insertion of Pacemaker Lead into Right Atrium, Percutaneous Approach (ICD-10-PCS; 2024-03-15)
PROC: 0JH606Z Insertion of Pacemaker, Dual Chamber into Chest Subcutaneous Tissue and Fascia, Open Approach (ICD-10-PCS; 2024-03-15)
PROC: 02HK3JZ Insertion of Pacemaker Lead into Right Ventricle, Percutaneous Approach (ICD-10-PCS; 2024-03-15)
DX: I49.5 Sick sinus syndrome (principal); I44.2 Atrioventricular block, complete; I48.92 Unspecified atrial flutter; I10 Essential (primary) hypertension; I48.0 Paroxysmal atrial fibrillation; E78.00 Pure hypercholesterolemia, unspecified; Z79.01 Long term (current) use of anticoagulants; Z79.82 Long term (current) use of aspirin; Z85.3 Personal history of malignant neoplasm of breast
CPT/HCPCS: 33208; 36569; 71045; 76700; 80048; 80053; 82248; 82607; 82728; 83540; 83550; 83735; 83880; 84443; 84484; 85025; 85027; 85610; 85730; 86618; 93005; 96374; 96375; 99285; C1785; C1892; C1898

== ENCOUNTER 2024-04-26 06:10 | Day surgery (SDC) | payer OTHER, SELFPAY ==
[2024-04-26] VITALS (13 sets, daily range): BP systolic 128–177; BP diastolic 56–85; BMI 22.4
--- NOTE | 2024-04-26 07:47 | W.PN.CT.SURG ---
CT Surgery Operative Note
-
Pre-op Diagnosis: Erosion of temporary epicardial pacing wire (atrial) through skin
Post-op Diagnosis: Same
Date of Procedure: 04/26/24
Procedure: Pull of temporary atrial pacing wires x 2
Primary Surgeon: Fabrizio Mak MD
Scrub RN: Cammy Villalta
Circulatory RN: Amelia Toribio
Anesthesia: Melquiades Foreman MD, Markel Mcguire CRNA
Specimen: None
Cultures: None
Complications / Blood Loss: None
Findings: The field was prepped and draped in the usual sterile fashion. A time out was called. The local area was infiltrated with 5cc of 1/4% Bupivicaine with epi. There was a small area of granulation tissue over a previous temporary pacing
wire site (atrial wire), I located this with ultrasound to be certain, a small 4mm incision was made over the skin and the wire was easily located and pulled free without resistance. I did the same for the slightly more superior wire. The upper
incision was dermabonded closed and the site with granulation tissue had a single vertical mattress 5-0 monocryl suture to allow any drainage. This was covered with a non stick dressing and then tegaderm. An intraoperative TTE was performed and
found a well functioning mitral valve with no residual insufficiency and trace-mild AI that was the same as her previous. No effusion was seen on multiple views.
== END 2024-04-26 09:55 | disposition home or self-care (01) ==
LOC: SDS 06:10
PROVIDERS: ATTENDING PHYSICIAN Thoracic Surgery (Cardiothoracic Vascular Surgery); FAMILY PHYSICIAN Family Medicine
DX: T82.190A Other mechanical complication of cardiac electrode, initial encounter (principal); Y83.1 Surgical operation with implant of artificial internal device as the cause of abnormal reaction of the patient, or of later complication, without mention of misadventure at the time of the procedure
CPT/HCPCS: 33235; 86850; 86900; 86901

== ENCOUNTER → 2024-07-28 13:25 | Outpatient (REF) | payer OTHER, SELFPAY | LOC: RCS 13:25 | PROVIDERS: ATTENDING PHYSICIAN Thoracic Surgery (Cardiothoracic Vascular Surgery); FAMILY PHYSICIAN Family Medicine | DX: Z98.890 Other specified postprocedural states (principal) | CPT/HCPCS: 93306 ==